=== PATIENT | male | born 1955 | race Caucasian/White ===

== ENCOUNTER 2017-03-06 19:26 | Observation (INO) | payer MEDICARE, OTHER ==
[2017-03-06 19:58] LABS: #Basophils 0.1 thou/uL (0.0-0.2); #Eosinphils 0.4 thou/uL (0.0-0.7); #Lymphocytes 2.3 thou/uL (1.20-3.40); #Monocytes 0.9 thou/uL (0.11-0.59); #Neutrophils 4.7 thou/uL (1.40-6.50); %Basophils 0.8 % (0.0-1.0); %Eosinophils 4.9 % (0.0-10.0); %Lymphocytes 27.2 % (21.0-51.0); %Monocytes 11.1 % (0.0-10.0); Mean Platelet Volume 7.6 fL (7.4-10.4); Red Blood Cell (RBC) Count 4.47 mill/uL (4.70-6.10); White Blood Cell (WBC) Count 8.3 thou/uL (4.8-10.8)
[2017-03-06 20:08] LABS: Anion Gap 16 mmol/L (10-20); BUN (Urea Nitrogen) 20 mg/dL (8.4-25.7); CK (CPK) 129 U/L (30-200); Calc. Creatinine Clearance 0 mL/min (70-130); Calcium 10.3 mg/dL (7.8-10.44); Carbon Dioxide 23 mmol/L (23-31); Chloride 98 mmol/L (98-107); Estimated GFR-MDRD 60
[2017-03-06 20:26] LABS: Digoxin 0.68 ng/mL (0.8-2.0)
--- NOTE | 2017-03-06 20:40 | RAD ---
PORTABLE CHEST ONE VIEW: 03/06/17 at 7:38 p.m. HISTORY: Dyspnea, chest pain. FINDINGS: Comparison is made with exam of 09/24/13. Left sided AICD is again seen. The heart size is normal. The aorta is tortuous. The lungs are expand ed without focal areas of consolidation, pneumothorax, or pleural effusions. IMPRESSION: No acute process. POS: [facility]
[2017-03-06] MEDS ORDERED: Ondansetron ODT 4 MG TAB PO PRN (23:05)
[2017-03-06] MEDS ORDERED: HumaLOG 300 UNITS/3 ML VIAL SC PRN ×2 (23:05)
[2017-03-06] MEDS ORDERED: Senokot 8.6 MG TAB PO PRN (23:05)
[2017-03-06] MEDS ORDERED: Ondansetron HCl/PF 4 MG/2 ML Vial IVP PRN (23:05)
[2017-03-06] MEDS ORDERED: Mag-Al 1200 mg/1200 mg/30 ML UDCUP PO PRN (23:05)
[2017-03-06] MEDS ORDERED: Milk Of Magnesia 30 ML UDCUP PO PRN (23:05)
[2017-03-06] MEDS ORDERED: Zolpidem Tartrate 5 MG TAB PO PRN (23:05)
[2017-03-06] MEDS ORDERED: Dextrose 50% Abboject 50 ML SYRINGE SLOW IVP PRN (23:05)
[2017-03-06] MEDS ORDERED: Acetaminophen 325 MG TAB PO PRN (23:05)
[2017-03-06] MEDS ORDERED: Dextrose 5% in Water 1,000 ML IV PRN (23:05)
[2017-03-06] MEDS ORDERED: Loperamide HCl 2 MG CAP PO PRN (23:05)
[2017-03-06] MEDS ORDERED: HYDROcodone/Acetaminophen 5/325 mg Tablet PO PRN (23:05)
[2017-03-06 23:15] LABS: Troponin I 0.071 ng/mL (< 0.028)
[2017-03-06] MEDS ORDERED: Potassium Chloride 20 MEQ TAB PO SCH (23:15)
[2017-03-06 23:37] VITALS: BMI 26.1
--- NOTE | 2017-03-06 23:52 | HP ---
PRIMARY CARE PHYSICIAN: In [place], [place], so this is a city call admission. PRIMARY COMMUNICATION ARTS LECTURER: Dr. Guerra. REASON FOR ADMISSION: Chest discomfort. HISTORY OF PRESENT ILLNESS: A 61-year-old male who has a history of hypertension, diabetes type 2, dyslipidemia, and ischemic cardiomyopathy, who presented to the emergency room for chest discomfort. Patient reports that he was fishing today and when he returned to home around 4:00 p.m. at home. He was feeling funny sensation in his chest as a fluttering sensation. Subsequently, he was also fe eling tingling, numbness sensation in his left arm and he started feeling funny in his jaw. He was not having any real chest pain, but he was feeling funny with a fluttering sensation in his chest an d he was concerned about and it was ongoing without any stop and that is why he decided to come to located within [facility] emergency room for evaluation. In the emergency room, he was hemodynamically stable. His routine blood tests showed hypokalemia, i ndeterminate troponin. Subsequently in the emergency room, AICD was interrogated, which was also ne gative for any arrhythmia. Patient was over concerned about his heart condition because he has a weak heart and that is why he decided to stay in the hospital for observation. Patient reports that last , he saw Dr. Guerra at that time echocardiography was done and Yasmine Guerra told him that his heart has not gotten worse or not improved. His EF remained 20% as pe r patient. This patient did not have any stress test in the recent past. He denies any exertion-related chest pain, palpitation, dizziness, syncope. He denies any orthopnea, PND, or leg swelling. He denies an y fever or chills. He denies any nausea, vomiting, diarrhea. He denies any associated diaphoresis. He denies any relation of discomfort in the chest with the food, respiration, or activity. He den ies any UTI symptoms. REVIEW OF SYSTEMS: The following complete review of systems was negative, unless otherwise mentione d in the HPI or below: Constitutional: Weight loss or gain, ability to conduct usual activities. Skin: Rash, itching. Eyes: Double vision, pain. ENT/Mouth: Nose bleeding, neck stiffness, pain, tenderness. Cardiovascular: Palpitations, dyspnea on exertion, orthopnea. Respiratory: Shortnes s of breath, wheezing, cough, hemoptysis, fever or night sweats. Gastrointestinal: Poor appetite, abdominal pain, heartburn, nausea, vomiting, constipation, or diarrhea. Genitourinary: Urgency, fr equency, dysuria, nocturia. Musculoskeletal: Pain, swelling. Neurologic/Psychiatric: Anxiety, de pression. Allergy/Immunologic: Skin rash, bleeding tendency. Please see my HPI for pertinent posi tives and negatives. All other review of systems were reviewed and negative except as mentioned in the HPI. PAST MEDICAL HISTORY: Ischemic cardiomyopathy, hypertension, dyslipidemia, diabetes type 2, chronic systolic heart failure with AICD, coronary artery disease with the history of [place] with the PCI, hist ory of MRSA infection, vitamin D deficiency. PAST SURGICAL HISTORY: Cardiac catheterization with the stent, history of herniated disk repair, de fibrillator placement, and cholecystectomy. PAST PSYCHIATRIC HISTORY: Reviewed and negative. CURRENT HOME MEDICATIONS: Lisinopril 2.5 mg p.o. daily, Coreg 6.25 mg twice daily, potassium chlori de 10 mEq p.o. 2 tablets twice daily, Jardiance 12.09/999 twice daily, metformin 1000 mg twice daily , Januvia 100 mg p.o. daily, digoxin 125 mcg p.o. daily, Nexium 40 mg p.o. daily, Zetia 10 mg p.o. d aily, Lasix 80 mg twice daily, fish oil 2 capsules twice daily, niacin 750 mg p.o. at bedtime, TriCo r 135 mg p.o. at bedtime, Livalo 2 mg p.o. at bedtime, Plavix 75 mg p.o. at bedtime, vitamin D3 2000 units p.o. at bedtime, iron 1 tablet p.o. daily, Coenzyme Q10 100 mg p.o. daily. SOCIAL HISTORY: Patient is a former smoker. He quit smoking a few years ago. He denies any alcoho l or other illicit drug abuse. He is , lives at home with his . He is retired from the . He smoked heavily for 35 years. ALLERGIES: PENICILLIN. FAMILY HISTORY: Patient's father had a myocardial infarction x2 in his 80s. Mother had a history o f diabetes and hypertension. EMERGENCY ROOM COURSE: Reviewed. PHYSICAL EXAMINATION: VITAL SIGNS: On arrival, blood pressure 152/87, pulse 82, respiratory rate 18, temperature 98.1, sa turation 96% on room air, weight 86.1 kilograms. GENERAL: Patient is currently alert, awake, no obvious acute distress. HEENT: Normocephalic, atraumatic. Eyes: Pupils round, reactive to light. Extraocular muscle inta ct. ENT: Oropharynx within normal limits. Moist mucous membranes. No oral lesions. No pharyngeal andrea thema, no exudate. NECK: Supple. Range of motion is normal. No meningeal signs of irritation. LUNGS: Clear to auscultation without any rhonchi or rales. CARDIAC: Pacemaker in left anterior chest. S1, S2 regular. No murmur, no gallop, no rub. ABDOMEN: Soft, bowel sounds present, nontender, nondistended. No organomegaly, no mass, no suprapu bic tenderness. BACK: Unremarkable, no CVA tenderness. EXTREMITIES: Upper extremity passive movement of all joints are normal. Lower extremities: No cedric ma. Good peripheral pulsation. SKIN: No skin rash. HEMATOLOGICAL SYSTEM: No lymphadenopathy. PSYCHIATRIC: Normal affect. NEUROLOGIC: Nonfocal examination. SIGNIFICANT LABS: EKG based on my review, normal sinus rhythm, nonspecific ST-T changes seen in ant erior leads. Chest x-ray based on my review, no acute cardiopulmonary process. CBC: WBC 8.3, hemo globin 13.7, platelets 310. BMP: Sodium 134, potassium 3.2, chloride 98, carbon dioxide 23, BUN 20 , creatinine 1.23, glucose 199, calcium 10.3, magnesium 2.2. CK 129, CK-MB 1.0, troponin 0.060. BN P 35.7, digoxin level was 0.68. ASSESSMENT AND PLAN: 1. Chest discomfort. This patient does not have any classic chest pain, but he is feeling funny in his chest. He describes it as a fluttering sensation, but surprisingly his AICD interrogation is n egative for any kind of arrhythmia. I am suspecting that patient has a low potassium and maybe meek use of PVCs, he maybe feeling fluttering sensation, but at the same time, patient also feels numb, p aresthesia-type of symptoms on the left upper extremity as well as in jaw, so this could be atypical symptoms of cardiac etiology and he has indeterminate troponin and nonspecific EKG changes. He has underlying cardiomyopathy and coronary artery disease and that is why we will keep this patient in the hospital for observation. We will do serial cardiac enzymes. If his troponins remain in the in determinate range or negative, then we will consider doing pharmacological stress test as this patie nt did not have any stress test in a long period of time. This patient already had echocardiography done at Dr. Guerra's office and this patient already has an appointment with Dr. Guerra on wednesday. Meanwhile, we will continue Plavix 75 mg p.o. at bedtime. The patient already took asp irin at home, nitroglycerin p.r.n. basis. We will also continue selected home medication while in [facility]. 2. Coronary artery disease with the history of stent. Patient is on Plavix, Coreg, lisinopril, Kira abigail, and Zetia, which we will continue while in hospital. 3. Hypokalemia. We will replace potassium chloride 40 mEq p.o. one time dose extra dose and magnes ium is normal and we will repeat BMP tomorrow. 4. Ischemic cardiomyopathy with chronic systolic heart failure. The patient is currently euvolemic . His BNP is normal. He does not have any edema. At this point, we will continue home medications with the Lasix 80 mg p.o. b.i.d. along with potassium chloride 20 mEq p.o. b.i.d. The patient will also continue his lisinopril 2.5 mg p.o. daily, and Coreg 6.25 mg twice daily. 5. Dyslipidemia. We will check lipid profile tomorrow and continue Livalo 2 mg p.o. at bedtime, Tr iCor 135 mg p.o. at bedtime, niacin extended-release 750 mg at bedtime, and Zetia 10 mg p.o. daily. 6. Diabetes type 2. We will continue insulin as per sliding scale per protocol. Diabetic diet luis l be given. We will continue metformin 1000 mg twice daily, Januvia 100 mg p.o. daily. 7. Chronic kidney disease stage 3. We will monitor renal function. We will repeat BMP tomorrow. 8. Deep venous thrombosis prophylaxis not needed because we are expecting discharge in 24 hours. 9. Gastrointestinal prophylaxis, Pepcid 20 mg p.o. b.i.d. 10. Code status: The patient is FULL CODE. The patient's is surrogate decision maker. Disposition plan based on the clinical course. We are expecting patient's stay in hospital 24 hours .
[2017-03-07 01:59] LABS: #Basophils 0.1 thou/uL (0.0-0.2); #Eosinphils 0.5 thou/uL (0.0-0.7); #Lymphocytes 2.4 thou/uL (1.20-3.40); %Eosinophils 6.7 % (0.0-10.0); %Lymphocytes 29.5 % (21.0-51.0); %Monocytes 12.2 % (0.0-10.0); Mean Platelet Volume 7.3 fL (7.4-10.4); Red Blood Cell (RBC) Count 4.68 mill/uL (4.70-6.10)
[2017-03-07 02:22] LABS: Troponin I 0.079 ng/mL (< 0.028)
[2017-03-07 02:28] LABS: Chloride 99 mmol/L (98-107)
[2017-03-07 02:29] LABS: Calcium 10.2 mg/dL (7.8-10.44)
[2017-03-07 02:31] LABS: Anion Gap 15 mmol/L (10-20); Carbon Dioxide 26 mmol/L (23-31)
[2017-03-07 02:32] LABS: Calc. Creatinine Clearance 76 mL/min (70-130); Estimated GFR-MDRD 58
[2017-03-07 02:33] LABS: BUN (Urea Nitrogen) 17 mg/dL (8.4-25.7)
[2017-03-07 02:34] LABS: Cholesterol 178 mg/dl (< 200 Desired)
[2017-03-07 02:35] LABS: LDL Cholesterol, Calculated 1 mg/dL
[2017-03-07] MEDS ORDERED: ADENOSINE 60 MG/20 ML VIAL ONE ×2 (03:51→11:39)
[2017-03-07] MEDS: Nitroglycerin 2% Ointment 1 INCH/1 GM Packet TOP SCH ×2 (05:34→12:58)
[2017-03-07] MEDS ORDERED: Ferrous Sulfate 325 MG TAB PO SCH (08:00)
[2017-03-07] MEDS ORDERED: Lisinopril 2.5 MG TAB PO SCH (09:00)
[2017-03-07] MEDS ORDERED: Fish Oil 1,000 MG CAP PO SCH (09:00)
[2017-03-07] MEDS ORDERED: Digoxin 0.125 MG TAB PO SCH (09:00)
[2017-03-07] MEDS ORDERED: Ubidecarenone 50 MG CAP PO SCH ×2 (09:00→21:00)
[2017-03-07] MEDS ORDERED: Fenofibrate Nanocrystallized 145 MG TAB PO SCH ×2 (09:00→21:00)
[2017-03-07] MEDS ORDERED: Ezetimibe 10 MG TAB PO SCH (09:00)
[2017-03-07] MEDS ORDERED: Famotidine 20 MG TAB PO SCH (09:00)
[2017-03-07] MEDS ORDERED: Alogliptin Benzoate 25 MG TABLET PO SCH (09:00)
--- NOTE | 2017-03-07 09:59 | PDOC.PN ---
- Subjective Encounter Start Date: 03/07/17 Encounter Start Time: 09:57 Subjective: feelsw at baseline. no more chest discomfort.no SOB/PRICE/Orthopnea - Objective Resuscitation Status: Resuscitation Status FULL:Full Resuscitation MAR Reviewed: Yes Vital Signs & Weight: Vital Signs (12 hours) Temp Pulse Resp BP BP Pulse Ox 03/07/17 08:53 85 139/74 03/07/17 07:30 97.8 F 80 18 03/07/17 07:28 98.4 F 85 16 139/74 92 L 03/07/17 04:14 97.8 F 80 18 121/71 95 03/06/17 22:59 98.0 F 77 18 148/70 H 95 Weight Admit Weight 192 lb 6.4 oz Weight 192 lb 6.4 oz I&O: 03/06/17 03/07/17 03/08/17 06:59 06:59 06:59 Intake Total 480 Balance 480 Result Diagrams: 03/07/17 01:51 03/07/17 01:51 Additional Labs: Accuchecks 03/07/17 05:54 POC Glucose 138 H Laboratory Tests 03/06/17 03/06/17 03/06/17 19:40 19:40 22:37 Troponin I 0.060 H 0.071 H Triglycerides Cholesterol LDL Cholesterol, Calc HDL Cholesterol Digoxin 0.68 L 03/07/17 03/07/17 01:51 01:51 Troponin I 0.079 H Triglycerides 764 H Cholesterol 178 LDL Cholesterol, Calc 1 HDL Cholesterol 24 Digoxin Radiology Reviewed by me: Yes Phys Exam - Physical Examination Constitutional: NAD HEENT: PERRLA, moist MMs, sclera anicteric, oral pharynx no lesions Neck: no nodes, no JVD, supple, full ROM Respiratory: no wheezing, no rales, no rhonchi, clear to auscultation bilateral Cardiovascular: RRR, no significant murmur, no rub, gallop Gastrointestinal: soft, non-tender, no distention, positive bowel sounds Musculoskeletal: no edema, pulses present Neurological: non-focal, normal sensation, moves all 4 limbs Psychiatric: normal affect, A&O x 3 Skin: no rash Dx/Plan (1) Chest pain Code(s): R07.9 - CHEST PAIN, UNSPECIFIED Status: Acute (2) Troponin level elevated Code(s): R74.8 - ABNORMAL LEVELS OF OTHER SERUM ENZYMES Status: Acute (3) Chronic systolic CHF (congestive heart failure) Code(s): I50.22 - CHRONIC SYSTOLIC (CONGESTIVE) HEART FAILURE Status: Chronic Comment: EF 25%.AICD in place (4) DM2 (diabetes mellitus, type 2) Status: Chronic Qualifiers: Diabetes mellitus complication status: with hyperglycemia (5) Hypertriglyceridemia Code(s): E78.1 - PURE HYPERGLYCERIDEMIA Status: Chronic Comment: On multiple medications and TG levels higher than before (6) HLD (hyperlipidemia) Code(s): E78.5 - HYPERLIPIDEMIA, UNSPECIFIED Status: Chronic Qualifiers: Hyperlipidemia type: mixed hyperlipidemia Qualified Code(s): E78.2 - Mixed hyperlipidemia (7) HTN (hypertension) Code(s): I10 - ESSENTIAL (PRIMARY) HYPERTENSION Status: Chronic Qualifiers: Hypertension type: essential hypertension Qualified Code(s): I10 - Essential (primary) hypertension (8) CAD (coronary artery disease) Code(s): I25.10 - ATHSCL HEART DISEASE OF [place] CORONARY ARTERY W/O ANG PCTRS Status: Chronic (9) Ischemic cardiomyopathy Code(s): I25.5 - ISCHEMIC CARDIOMYOPATHY Status: Chronic (10) AICD (automatic cardioverter/defibrillator) present Code(s): Z95.810 - PRESENCE OF AUTOMATIC (IMPLANTABLE) CARDIAC DEFIBRILLATOR Status: Chronic - Plan plan discussed w/ family, out of bed/ambulate, DVT proph w/lovenox NM stress test today. cardiac enzymes inderminate range.cont plavix. -: Pt reports that ASA gives him nose bleeds. -: discussed high TG w family. will talk to Dr. Guerra. -: If Stress test nagtive,luis MD home,. -: F/U appointment w cardiology is in two days. * .hemodynamically stable and asymptomatic. Review of Systems - Review of Systems Constitutional: negative: Fever, Chills, Sweats, Weakness, Malaise, Other Respiratory: negative: Cough, Dry, Shortness of Breath, Hemoptysis, SOB with Excertion, Pleuritic Pain, Sputum, Wheezing Cardiovascular: negative: Chest Pain, Palpitations, Orthopnea, Paroxysmal Noc. Dyspnea, Edema, Light Headedness, Other Gastrointestinal: negative: Nausea, Vomiting, Abdominal Pain, Diarrhea, Constipation, Melena, Hematochezia, Other Genitourinary: negative: Dysuria, Frequency, Incontinence, Hematuria, Retention , Other Musculoskeletal: negative: Neck Pain, Shoulder Pain, Arm Pain, Back Pain, Hand Pain, Leg Pain, Foot Pain, Other Neurological: negative: Weakness, Numbness, Incoordination, Change in Speech, Confusion, Seizures, Other - Medications/Allergies Allergies/Adverse Reactions: Allergies Allergy/AdvReac Type Severity Reaction Status Date / Time Penicillins Allergy Intermediate Rash Verified 11/14/15 12:44 Medications: Current Medications Acetaminophen (Tylenol) 650 mg PO Q4H PRN PRN Reason: Headache/Fever or Pain Hydrocodone Bitart/Acetaminophen ([place] 5/325) 1 tab PO Q4H PRN PRN Reason: Moderate Pain (4-6) Al Hydroxide/Mg Hydroxide (Maalox) 30 ml PO Q6H PRN PRN Reason: Heartburn or Indigestion Alogliptin Benzoate (Alogliptin) 25 mg PO DAILY [facility] Last Admin: 03/07/17 08:52 Dose: 25 mg Atorvastatin Calcium (Lipitor) 10 mg PO HS [facility] Cholecalciferol (Vitamin D3) 1,000 units PO QPM [facility] Clopidogrel Bisulfate (Plavix) 75 mg PO HS [facility] Coenzyme Q10 (Coenzyme Q10) 100 mg PO QPM [facility] Dextrose/Water (Dextrose 50%) 25 gm SLOW IVP PRN PRN PRN Reason: Hypoglycemia Digoxin (Lanoxin) 0.125 mg PO DAILY [facility] Ezetimibe (Zetia) 10 mg PO DAILY [facility] Last Admin: 03/07/17 08:52 Dose: 10 mg Famotidine (Pepcid) 20 mg PO BID [facility] Last Admin: 03/07/17 08:52 Dose: 20 mg Fenofibrate (Tricor) 145 mg PO QPM [facility] Ferrous Sulfate (Feosol) 325 mg PO QAM-WM [facility] Last Admin: 03/07/17 08:33 Dose: Not Given Fish Oil (Fish Oil) 1,000 mg PO DAILY [facility] Last Admin: 03/07/17 08:53 Dose: 1,000 mg Furosemide (Lasix) 80 mg PO 0900,1400 [facility] Glucagon (Glucagon) 1 mg IM PRN PRN PRN Reason: Hypoglycemia Dextrose/Water (D5w) 1,000 mls @ 0 mls/hr IV .Q0M PRN; As Directed PRN Reason: Hypoglycemia Insulin Human Lispro (Humalog) 0 units SC .MODERATE SLIDING SC PRN PRN Reason: Moderate Correctional Scale Insulin Human Lispro (Humalog) 0 units SC .BEDTIME SLIDING SC PRN PRN Reason: Bedtime Correctional Scale Lisinopril (Zestril) 2.5 mg PO DAILY [facility] Last Admin: 03/07/17 08:53 Dose: 2.5 mg Loperamide HCl (Imodium) 2 mg PO PRN PRN PRN Reason: Diarrhea/Loose Stools Magnesium Hydroxide (Milk Of Magnesium) 30 ml PO DAILYPRN PRN PRN Reason: Constipation Metformin HCl (Glucophage) 1,000 mg PO BID-[facility] Last Admin: 03/07/17 08:52 Dose: 1,000 mg Niacin (Niaspan Er) 500 mg PO [facility] Nitroglycerin (Nitro-Bid 2% Ointment) 0.5 inch TOP Q8HR [facility] Last Admin: 03/07/17 05:34 Dose: Not Given Ondansetron HCl (Zofran Odt) 4 mg PO Q6H PRN PRN Reason: Nausea/Vomiting Ondansetron HCl (Zofran) 4 mg IVP Q6H PRN PRN Reason: Nausea/Vomiting Senna (Senokot) 2 tab PO HSPRN PRN PRN Reason: Constipation Zolpidem Tartrate (Ambien) 5 mg PO HSPRN PRN PRN Reason: Insomnia
[2017-03-07] MEDS: Furosemide 80 MG TAB PO SCH ×2 (12:57→12:58)
[2017-03-07 13:23] VITALS: BP 150/69; TEMP 98.1
--- NOTE | 2017-03-07 13:43 | NM ---
RADIONUCLIDE STRESS REST MYOCARDIAL PERFUSION SCAN WITH CT ATTENUATION CORRECTION AND SPECT IMAGING LEFT VENTRICULAR WALL MOTION AND EJECTION FRACTION: HISTORY: Chest pain. Prior infarct. FINDINGS: Single-day adenosine protocol was used. There is very heterogeneous uptake of radiotracer throughou t the left ventricular myocardium with a large area of markedly diminished radiotracer uptake involv ing the anterior wall and septum. No significant reversibility is visible. QGS analysis of gated SPECT images shows markedly diminished motion of the septum. Left ventricular ejection fraction is calculated at 33%. IMPRESSION: 1. Large area of scar involving the anterior wall, septum, and apex. No evidence of ischemia. 2. Depressed ejection fraction of 33%. POS: [facility]
--- NOTE | 2017-03-07 17:43 | DIS ---
DATE OF ADMISSION: 03/06/2017 DATE OF DISCHARGE: 03/07/2017 PRIMARY CARE PHYSICIAN: Out of town. PRIMARY LENS MOLD SETTER: Dr. Rakesh Guerra. DISCHARGE DIAGNOSES: 1. Chest discomfort, acute coronary syndrome ruled out. 2. History of ischemic cardiomyopathy with automatic implantable cardioverter defibrillator in plac e. 3. Hypertension. 4. Dyslipidemia. 5. Diabetes mellitus, type 2. 6. Chronic systolic congestive heart failure. 7. Coronary artery disease with history of myocardial infarction with the [employer]. 8. History of methicillin-resistant Staphylococcus aureus infection. 9. Vitamin D deficiency. DISCHARGE MEDICATIONS: Remain the same as admission medications. He will resume. They have been re viewed by myself as follows; Januvia 100 mg daily, metformin 1000 mg p.o. b.i.d., lisinopril 2.5 mg daily, vitamin D3 2000 units daily, Jardiance 12.5 mg p.o. b.i.d., tramadol as needed, Coreg 6.25 mg p.o. b.i.d., Zetia 10 mg daily, Nexium 40 mg daily, digoxin 0.125 mg daily, Plavix 75 mg daily, angelica pedro sulfate 45 mg daily, fenofibric acid 135 mg daily, fish oil 1 capsule daily, Niaspan 750 mg roddy ly, Lasix 80 mg twice a day, potassium chloride 20 mEq p.o. b.i.d., and Livalo 2 mg daily. CONSULTATIONS: None. PROCEDURES DONE IN THE HOSPITAL: Include nuclear medicine stress test. It is negative for any reve rsibility or ischemia. It does show evidence of old infarction with large area of scar in the anter ior wall septum and apex. Estimated EF is 33%. ADMISSION HISTORY: Mr. Rawls is a pleasant 61-year-old male with past medical history of significant ischemic cardiomyopathy, status post AICD placement, and coronary artery disease among others, who presented to the emergency room with vague complaints of chest discomfort. He described his symptoms of \\\\"feeling funny in the chest\\\\" with a fluttering sensation. He was hemodynamical ly stable upon presentation and his symptoms have resolved. Given his extensive cardiac history, he was admitted overnight under observation for evaluation and ACS workup. He underwent nuclear medicine stress test, which was negative for any ischemia or reversibility. HOSPITAL COURSE: Cardiac enzymes were trended; initially he had troponin of 0.060, which went up to 0.079. The patient's symptoms have not reoccurred as nuclear medicine stress test is normal. He i s hemodynamically stable and symptom free. He has an upcoming appointment with his own technical support representative day after tomorrow. He can be safely discharged home and he is eager to go home. I have discussed the discharge plan with the patient and his , who verbalized understanding. He was found to have severely elevated levels of triglyceride of 764 despite maximum therapy. I hav e encouraged them to discuss this with their technical support representative for some normal hypertriglyceride medicati ons. This seems to have consistently worsened over the course of last 5 years. Other than that, at this time, the patient is stable and given his presentation and his workup, ACS has been ruled out to the best of our knowledge. The patient was seen and examined prior to discharge. Please see hospitalist progress note from georgi peck's date for further details and [id number] interaction.
[2017-03-07] MEDS ORDERED: Clopidogrel Bisulfate 75 MG TAB PO SCH (21:00)
[2017-03-07] MEDS ORDERED: Atorvastatin Calcium 10 MG TAB PO SCH (21:00)
== END 2017-03-07 14:43 | disposition home or self-care (01) ==
LOC: ERS 19:26 → 2SW 22:00
PROVIDERS: ADMIT Internal Medicine; ATTEND Internal Medicine
DX: R07.89 Other chest pain (principal); I25.5 Ischemic cardiomyopathy; I11.0 Hypertensive heart disease with heart failure; I50.22 Chronic systolic (congestive) heart failure; E78.5 Hyperlipidemia, unspecified; E11.9 Type 2 diabetes mellitus without complications; E55.9 Vitamin D deficiency, unspecified; I25.10 Atherosclerotic heart disease of native coronary artery without angina pectoris; I25.2 Old myocardial infarction; Z88.0 Allergy status to penicillin; Z79.84 Long term (current) use of oral hypoglycemic drugs; Z79.899 Other long term (current) drug therapy; Z90.49 Acquired absence of other specified parts of digestive tract; Z95.810 Presence of automatic (implantable) cardiac defibrillator; Z86.14 Personal history of Methicillin resistant Staphylococcus aureus infection; Z87.891 Personal history of nicotine dependence; Z82.49 Family history of ischemic heart disease and other diseases of the circulatory system; Z83.3 Family history of diabetes mellitus
CPT/HCPCS: 71010; 78452; 80048 ×2; 80061; 80162; 82550; 82553; 82962 ×2; 83735; 83880; 84484 ×3; 85025 ×2; 93005; 93017; 99285; A9500; G0378; 36415; 36416; 93010; J0153

== ENCOUNTER 2017-09-17 15:22 | Inpatient (IN) | payer MEDICARE, OTHER ==
[2017-09-17 16:15] LABS: Troponin I 0.599 ng/mL (< 0.028)
[2017-09-17] MEDS ORDERED: Dextrose 5% in Water 1,000 ML IV PRN (16:41)
[2017-09-17] MEDS ORDERED: Dextrose 50% Abboject 50 ML SYRINGE SLOW IVP PRN (16:41)
[2017-09-17] MEDS ORDERED: Zolpidem Tartrate 5 MG TAB PO PRN (16:41)
[2017-09-17] MEDS ORDERED: Acetaminophen 325 MG TAB PO PRN (16:41)
[2017-09-17] MEDS ORDERED: Ondansetron ODT 4 MG TAB PO PRN (16:41)
[2017-09-17] MEDS ORDERED: Insulin Regular 300 UNITS/3 ML VIAL SC PRN (16:41)
--- NOTE | 2017-09-17 17:23 | HP ---
PRIMARY CARE PROVIDER: Linda Christine M.D. ADJUNCT TRAINER: Dr. Rakesh Guerra. The patient referred to [facility] by [facility] after transfer f [facility] in [place]. HISTORY OF PRESENT ILLNESS: The patient developed a burning in his chest with exertion past several days, goes away with sitting 5-10 minutes, it was worse today, started this morning, associated with tingling in left side of his face, into his left arm, lasted about 30 minutes, went away with rest. He had minimal shortness of breath. No sweats. PAST MEDICAL HISTORY: Pertinent for coronary artery disease post anterior myocardial infarction, isc hemic cardiomyopathy, hypertension, diabetes mellitus type 2, dyslipidemia. He has an AICD. He had a PCI in the past. PAST SURGICAL HISTORY: Cardiac catheterization with PCI, herniated disk repair in his back, cholecys tectomy. CURRENT MEDICATIONS: Coreg 6.25 mg twice a day, Klor-Con 20 mEq daily, Synjardy 12.09/999 twice a da y, digoxin 0.125 mg a day, Januvia 100 mg a day, Nexium 40 mg a day, Zetia 10 mg a day, Lasix 80 mg t wice a day, Entresto 24/ twice a day, Bydureon BCise 2 mg subcu once a week, Tylenol #3 one every 4 hours as needed for pain, niacin 750 mg a day, fenofibrate 135 mg a day, Livalo 2 mg a day, Plavix 7 5 mg a day, Coenzyme Q10 100 mg a day, fish oil twice a day. ALLERGIES: PENICILLIN. FAMILY HISTORY: Father had a myocardial infarction x2 in his 80s. Mother had diabetes and hypertens ion. SOCIAL HISTORY: Former smoker, quit several years ago. No alcohol or illicit drugs. Lives at home with his . Smoked heavily for 35 years. Retired . CODE STATUS: FULL CODE status. is surrogate decision maker. REVIEW OF SYSTEMS: GENERAL: A little dizziness with this chest pain, no fainting, no headaches. EYES: No double vision, blurred vision, or flashing lights. ENT: No ear pain or drainage. Occasional nasal bleeding which he relates to aspirin and Plavix. No trouble swallowing. CARDIAC: See present illness. No orthopnea or paroxysmal nocturnal dyspnea. RESPIRATORY: No cough, wheezing or asthma. GASTROINTESTINAL: He has diarrhea related to his cholecystectomy. No nausea, vomiting or abdominal pain. GENITOURINARY: No hematuria, dysuria or nocturia. MUSCULOSKELETAL: No pain or swelling in his arms and legs. NEUROLOGIC: He had a TIA 5 years ago with numbness in his left hand and left face, resolved. PSYCHIATRIC: No anxiety or depression. SKIN: Easy bruising. No rash. HEME/LYMPH: No tender or swollen lymph nodes in axilla, inguinal or cervical area. PHYSICAL EXAMINATION: NEUROLOGICAL: He is an alert, pleasant, cooperative gentleman, in no distress at the current time. VITAL SIGNS: Blood pressure 122/67, pulse 82, respirations 15, O2 sat 96 on room air. HEENT: Pupils equal, round, and reactive to light. Extraocular movements are intact. Sclerae white . Tympanic membranes clear. Nose clear. Oral mucous membranes are wet. He has only six or eight t eeth, none on the upper. No molars. No dentures. NECK: No jugular venous distention, adenopathy. CHEST: Clear to auscultation and percussion. HEART: Regular rate and rhythm. First and second heart sounds are clear. There are no appreciated murmurs or gallops. ABDOMEN: Soft, bowel sounds are normal. There is no hepatosplenomegaly, no mass, no rebound, no bru its. EXTREMITIES: Reveal no cyanosis, clubbing or edema. PULSES: Carotid, radial, and femoral pulses intact, symmetric. Pedal pulses diminished. SKIN: Warm and dry without any significant bruising or rash. HEME/LYMPH: No tender or swollen lymph nodes in axilla, inguinal or cervical area. NEUROLOGICAL: Cranial nerves II-XII are intact. Deep tendon reflexes diminished. Moves all extremi ties. LABORATORY AND X-RAY FINDINGS: EKG: Regular sinus rhythm, Q-waves in V2, V3 and V4 consistent with old anterior myocardial infarction. ST depression in the inferior and lateral limb leads. Inferior and lateral precordial leads consistent with ischemia reviewed by me. There is no chest x-ray for in spection. Laboratory done in [place], BUN 17, creatinine 1.3, sodium 138, potassium 3.7, chloride 10 3, CO2 23, calcium 10.1. Liver function test within normal limits. White cell count 8.1, hemoglobin 14.1, platelet count 329,000. His D-dimer was elevated at 0.058. ADMITTING DIAGNOSES: 1. Chest pain. 2. Coronary artery disease. 3. Ischemic cardiomyopathy. 4. Diabetes mellitus type 2, on multiple medications. 5. Hypertension. 6. Dyslipidemia. 7. Chronic kidney disease stage 3. PLAN: 1. Admit. 2. Serial enzymes. 3. The patient has been given one dose of Lovenox therapeutic. 4. Continue home medicines. 5. Cardiology consult. The patient had no reversible perfusion stress test in February, will not ord er one at this time, but discussed with Cardiology.
[2017-09-17] MEDS: Nitroglycerin 0.4 MG TAB (25 Tab Bottle) PO PRN ×2 (18:59→20:22)
[2017-09-17 19:04] LABS: Critical Call Chem Troponin I RESULT DECREASING; Troponin I 0.538 ng/mL (< 0.028)
[2017-09-17] MEDS ORDERED: Morphine 4 MG/ML VIAL SLOW IVP PRN (19:26)
[2017-09-17 21:32] LABS: Critical Call Chem Troponin I RESULT DECREASING; Troponin I 0.529 ng/mL (< 0.028)
[2017-09-17] MEDS ORDERED: Ferrous Sulfate 325 MG TAB PO SCH (22:15)
[2017-09-17] MEDS ORDERED: Clopidogrel Bisulfate 75 MG TAB PO SCH (22:15)
[2017-09-17] MEDS ORDERED: Carvedilol 6.25 MG TAB PO SCH (22:15)
[2017-09-17] MEDS ORDERED: Potassium Chloride 20 MEQ TAB PO SCH (22:15)
[2017-09-17] MEDS ORDERED: Ubidecarenone 50 MG CAP PO SCH (22:30)
[2017-09-17] MEDS ORDERED: Sacubitril 49 MG/Valsartan 51 MG TABLET PO SCH (22:30)
[2017-09-18 05:06] LABS: #Eosinphils 0.5 thou/uL (0.0-0.7); #Lymphocytes 1.7 thou/uL (1.20-3.40); #Monocytes 0.8 thou/uL (0.11-0.59); #Neutrophils 3.8 thou/uL (1.40-6.50); %Basophils 0.6 % (0.0-1.0); %Eosinophils 7.1 % (0.0-10.0); %Lymphocytes 24.6 % (21.0-51.0); %Monocytes 11.9 % (0.0-10.0); %Neutrophils 55.9 % (42.0-75.0); Hemoglobin 13.4 g/dL (14.0-18.0); Mean Corpuscular HGB CONC 35.3 g/dL (32.0-36.0); Mean Corpuscular Hemoglobin 30.4 pg (27.0-31.0); Mean Corpuscular Volume 86.1 fl (80.0-94.0); Mean Platelet Volume 7.9 fL (7.4-10.4); Platelet Count 254 thou/uL (130-400); RBC Distribution Width 11.9 % (11.5-14.5); Red Blood Cell (RBC) Count 4.41 mill/uL (4.70-6.10); White Blood Cell (WBC) Count 6.8 thou/uL (4.8-10.8)
[2017-09-18 05:12] LABS: Anion Gap 15 mmol/L (10-20); BUN (Urea Nitrogen) 19 mg/dL (8.4-25.7); Calc. Creatinine Clearance 76 mL/min (70-130); Calcium 9.8 mg/dL (7.8-10.44); Carbon Dioxide 24 mmol/L (23-31); Chloride 101 mmol/L (98-107); Estimated GFR-MDRD 60; Glucose 132 mg/dL (80-115); Potassium 3.2 mmol/L (3.5-5.1); Sodium 137 mmol/L (136-145)
[2017-09-18] MEDS ORDERED: Communication Order-Pharmacy FS SCH ×2 (08:45→12:33)
[2017-09-18] MEDS ORDERED: Diazepam 5 MG TAB PO SCH (08:45)
[2017-09-18] MEDS: Carvedilol 6.25 MG TAB PO SCH ×2 (08:53→22:31)
[2017-09-18] MEDS ORDERED: Aspirin 325 MG TAB PO SCH (09:00)
--- NOTE | 2017-09-18 09:18 | PDOC.PN ---
- Subjective Encounter Start Date: 09/18/17 Encounter Start Time: 09:16 Subjective: still has pain, relieved with NTG - Objective MAR Reviewed: Yes Vital Signs & Weight: Vital Signs (12 hours) Temp Pulse Resp BP Pulse Ox 09/18/17 07:55 98.0 F 72 18 112/60 96 09/18/17 07:49 98.0 F 84 14 09/18/17 03:50 98.0 F 84 14 107/55 L 93 L 09/17/17 22:50 73 16 106/56 L 95 Weight Weight 190 lb 8 oz I&O: 09/17/17 09/18/17 09/19/17 06:59 06:59 06:59 Intake Total 480 Balance 480 Result Diagrams: 09/18/17 04:17 09/18/17 04:17 Additional Labs: Accuchecks 09/17/17 19:00 POC Glucose 108 Phys Exam - Physical Examination Neck: no JVD Respiratory: clear to auscultation bilateral Cardiovascular: RRR, no significant murmur Gastrointestinal: soft, non-tender, positive bowel sounds Musculoskeletal: no edema Dx/Plan (1) Chest pain Code(s): R07.9 - CHEST PAIN, UNSPECIFIED Status: Acute Qualifiers: Ischemic chest pain type: unstable angina pectoris (2) CAD (coronary artery disease) Code(s): I25.10 - ATHSCL HEART DISEASE OF [place] CORONARY ARTERY W/O ANG PCTRS Status: Chronic Qualifiers: Coronary Disease-Associated Artery/Lesion type: [place] artery [place] vs. transplanted heart: [place] heart Associated angina: with unstable angina Qualified Code(s): I25.110 - Atherosclerotic heart disease of [place] coronary artery with unstable angina pectoris (3) Chronic systolic CHF (congestive heart failure) Code(s): I50.22 - CHRONIC SYSTOLIC (CONGESTIVE) HEART FAILURE Status: Chronic Comment: EF 25%.AICD in place (4) DM2 (diabetes mellitus, type 2) Status: Chronic Qualifiers: Diabetes mellitus senior living insulin use: with senior living use Diabetes mellitus complication status: without complication Qualified Code(s): E11.9 - Type 2 diabetes mellitus without complications; Z79.4 - care home (current) use of insulin; Z79.4 - care home (current) use of insulin; Z79.4 - care home ( current) use of insulin; Z79.4 - intermediate school teacher (current) use of insulin (5) HLD (hyperlipidemia) Code(s): E78.5 - HYPERLIPIDEMIA, UNSPECIFIED Status: Chronic Qualifiers: (6) HTN (hypertension) Code(s): I10 - ESSENTIAL (PRIMARY) HYPERTENSION Status: Chronic Qualifiers: Hypertension type: essential hypertension (7) Hypertriglyceridemia Code(s): E78.1 - PURE HYPERGLYCERIDEMIA Status: Chronic Comment: On multiple medications and TG levels higher than before (8) Ischemic cardiomyopathy Code(s): I25.5 - ISCHEMIC CARDIOMYOPATHY Status: Chronic - Plan cath today, FU * .
[2017-09-18] MEDS ORDERED: Lidocaine 1% (PF) 30 ML VIAL ONE (09:25)
[2017-09-18] MEDS ORDERED: Iopamidol 370 76% 100 ML VIAL ONE (09:54)
[2017-09-18] MEDS ORDERED: Fentanyl 100 MCG/2 ML VIAL ONE (09:55)
[2017-09-18] MEDS ORDERED: Midazolam HCl 2 mg/2 ml Vial ONE ×2 (09:56→13:25)
[2017-09-18] MEDS: Potassium Chloride 20 MEQ TAB PO SCH ×2 (10:02→22:32)
[2017-09-18] MEDS: Sacubitril 49 MG/Valsartan 51 MG TABLET PO SCH ×2 (10:03→22:32)
[2017-09-18] MEDS ORDERED: Heparin 10,000 UNITS/1 ML VIAL ONE (10:34)
[2017-09-18] MEDS ORDERED: Nitroglycerin 50 MG/250 ML BOT 250 ML ONE (11:09)
[2017-09-18] MEDS ORDERED: Morphine 4 MG/ML VIAL ONE (11:10)
[2017-09-18] MEDS ORDERED: Nitroglycerin 0.4 MG TAB (25 Tab Bottle) ONE (11:10)
[2017-09-18] MEDS ORDERED: Nitroglycerin 0.4 MG TAB (25 Tab Bottle) SL PRN ×2 (11:15→11:30)
[2017-09-18] MEDS ORDERED: Sodium Chloride 0.9% 200 ML IV SCH (11:15)
[2017-09-18] MEDS ORDERED: traMADol HCl 50 MG TAB PO PRN (11:15)
[2017-09-18] MEDS ORDERED: Acetaminophen/Codeine 30-300mg Tablet PO PRN ×4 (11:15→11:30)
[2017-09-18] MEDS ORDERED: Aminocaproic Acid 5 GM/20 ML VIAL ONE (11:20)
[2017-09-18] MEDS ORDERED: Sodium Bicarb 50 MEQ/50 ML VIAL ONE (11:20)
[2017-09-18] MEDS ORDERED: Lidocaine 1% PF 5 ML VIAL ONE (11:20)
[2017-09-18] MEDS ORDERED: PROPOFOL 200 MG/20 ML VIAL ONE (11:20)
[2017-09-18] MEDS ORDERED: Protamine Sulfate 250 MG/25 ML VIAL ONE (11:20)
[2017-09-18] MEDS ORDERED: Vecuronium Bromide 20 MG VIAL ONE (11:20)
[2017-09-18] MEDS ORDERED: Heparin 30,000 units/30 ml VIAL ONE (11:20)
[2017-09-18] MEDS ORDERED: Heparin 5,000 UNITS/ML VIAL ONE (11:20)
[2017-09-18] MEDS ORDERED: Potassium Chloride 60 MEQ/30 ML VIAL ONE (11:20)
[2017-09-18] MEDS ORDERED: Calcium Chloride 1 GM/10 ML Abboject SYRINGE ONE (11:20)
[2017-09-18] MEDS ORDERED: Magnesium 5 GM/10 ML VIAL ONE (11:20)
[2017-09-18] MEDS ORDERED: Lidocaine 2% PF 100 mg/5 ml Syringe ONE (11:20)
[2017-09-18] MEDS ORDERED: Papaverine 60 MG/2 ML VIAL ONE (11:20)
[2017-09-18] MEDS ORDERED: Sodium Chloride 0.9% 200 ML IV PRN (11:30)
[2017-09-18 13:07] LABS: INR-International Normal Ratio 1.1; PTT 31.7 SEC (22.9-36.1); Prothrombin Time 14.3 SEC (12.0-14.7)
[2017-09-18 13:08] LABS: Hemoglobin A1c 7.1 % (4.0-6.0)
--- NOTE | 2017-09-18 13:22 | RAD ---
PORTABLE SUPINE FRONTAL CHEST RADIOGRAPH: Date: 09/18/17 COMPARISON: 03/06/17. HISTORY: Evaluate chest prior to open heart surgery. FINDINGS: Supine imaging limits assessment for pneumothorax and pleural fluid. There is a stable dual lead left -sided AICD. Atherosclerotic calcification in aortic arch noted. No focal consolidation or alveolar e sumanth. IMPRESSION: No acute findings. POS: [facility]
[2017-09-18] MEDS ORDERED: Vecuronium 10 MG VIAL ONE (13:25)
[2017-09-18] MEDS ORDERED: Phenylephrine HCL 10 MG/ML VIAL ONE (13:25)
[2017-09-18] MEDS ORDERED: Norepinephrine 8 MG/0.9% NS 250 ML ONE (13:25)
[2017-09-18] MEDS ORDERED: Fentanyl 250 MCG/5 ML VIAL ONE (13:25)
[2017-09-18] MEDS ORDERED: Midazolam HCl 5 mg/5 ml Vial ONE (13:25)
--- NOTE | 2017-09-18 14:10 | PDOC.EVN ---
Event Note - Event Note Event Note: NSTEMI, cath poitive for critical stenosis. going for CABG
--- NOTE | 2017-09-18 14:22 | CON ---
DATE OF CONSULTATION: 09/18/2017 REASON FOR CONSULTATION: Non-ST elevation myocardial infarction with ongoing chest pain. HISTORY OF PRESENT ILLNESS: Mr. Rawls is a 62-year-old patient of Dr. Rakesh Guerra. The patient has a long history of congestive heart failure and also coronary artery disease, but predominantly t he heart failure has been his main symptom. He said for about 2 weeks he has had exertional burning in his chest, sometimes at rest. The family had a severe episode yesterday, he went to the hospital in [place]. Troponin levels are elevated given Lovenox, but the patient continued to have chest burn ing at rest intermittently since he has been here. This morning when I walked into the room, he said he is continuing to have burning in his chest even presently. PAST MEDICAL HISTORY: History of coronary artery disease and cardiomyopathy as well. He did undergo cardiac catheterization in the past from what I can see his last catheterization was 2007. At that time, the patient underwent cardiac catheterization. He had a 4.0 x 24 mm stent Liberte and 4.0 x 12 mm stent. The patient had ANIL 1-2 flow and he required Integrilin and adenosine. The patient had a stent placed in the right coronary in 04/2008 is a 3.5 x 28 mm stent and a 4.0 x 16 stent was placed as well. A 3.5 mm stent was postdilated to 4 mm balloon. The patient had a defibrillator placed in 2008. The patient subsequently has had a defibrillator generator changes. Other past history herniated disk repair in his back. MEDICATIONS: 1. Coreg 6.25 mg twice a day. 2. Digoxin. 3. Januvia. 4. Nexium. 5. Zetia. 6. Lasix. 7. Entresto. 8. Plavix. 9. He does not take aspirin due to nosebleeds. ALLERGIES: PENICILLIN. FAMILY HISTORY: Father had myocardial infarction and mother diabetes. SOCIAL HISTORY: Former smoker, quit several years ago. No alcohol or drugs. CODE STATUS: FULL. REVIEW OF SYSTEMS: CONSTITUTIONAL: No significant weight gain or loss. VISION: No changes. HEARING: No changes. PULMONARY: No cough or wheezing. GASTROINTESTINAL: No nausea, vomiting, diarrhea. SKIN: No rashes. NEUROLOGIC: No unilateral weakness or numbness. PSYCHIATRIC: No unusual depression or anxiety. HEMATOLOGIC: No unusual bruising. GENITOURINARY: No burning with urination. PHYSICAL EXAMINATION: GENERAL: A pleasant gentleman. He states he is not doing well because he continued to have chest bu rning. VITAL SIGNS: Blood pressure 112/60, pulse 70. HEENT: Eyes: Sclerae nonicteric. Mouth: Mucous membranes moist. NECK: Supple, no lymphadenopathy. LUNGS: Clear, no wheezing, rales, or rhonchi. CARDIAC: Normal S1, normal S2. There is no murmur, rub, or gallop. ABDOMEN: Soft, nontender. EXTREMITIES: No clubbing, cyanosis, or edema. Peripheral pulses are diminished in the femorals, but are palpable, but I do feel dorsalis pedis puls e bilaterally, right greater than left. The patient does report exertional leg pain when he tries to exert himself from his hip down. The EKG sinus rhythm, some ST depression in the inferior leads. Most recent ejection fraction was es timated by stress test at 30%. ASSESSMENT: 1. Cardiomyopathy. 2. Coronary artery disease. 3. Non-ST elevation infarction with continued chest pain. 4. Peripheral vascular disease. 5. Hypercholesterolemia, being treated. PLAN: We will need to go to the cardiac catheterization lab. The patient is at increased risk of co mplications due to the left ventricular dysfunction. However, the patient continues to have ongoing chest pain. He also appears to have peripheral vascular disease. It has been noted in the previous interventions. He did seem to have embolization with both transien t slow flow. I discussed the situation with the patient. He understands and wished to proceed. He understands the guarded prognosis.
[2017-09-18] MEDS ORDERED: Milrinone 10 MG/10 ML VIAL ONE (17:21)
--- NOTE | 2017-09-18 17:32 | CON ---
DATE OF CONSULTATION: 09/18/2017 PRIMARY CARE PHYSICIAN: Abdelrahman Robison M.D. PRIMARY MANAGER FINANCIAL SERVICES: Rakesh Guerra M.D. PRIMARY CARE PHYSICIAN: Linda Christine M.D. CHIEF COMPLAINT: Chest pain. HISTORY OF PRESENT ILLNESS: The patient is a 62-year-old diabetic male with known coronary disease and ischemic cardiomyopathy. Many years ago, he had a myocardial infarction, the pain of which he described in terms of the movie Alien, something trying to escape from his chest. He has undergone previous stenting procedures with stents in his LAD and his right coronary and he has undergone dual chamber pacemaker and AICD implantation. As I piece it together , while he has had some paced events, he has never had any shocks and AICD was placed primarily because of his low EF and risk of sudden . The patient had been doing fairly well, but over the last few days began developing burning chest pain that radiated into his left arm and occasionally up into his neck and face doing minimal exertion such as walking across the yard. This morning, at presentation, he was standing at the refrigerator to get something to eat when he began having more serious episode of the same kind of pain with more intense tingling in his face and his arm. It lasted for about 30 minutes before going away, where his previous episodes had happened during activity and only lasted 5-10 minutes. When he presented to his local emergency facility in [place], his troponins apparently were already positive and he was transferred here. He was taken to the director of cath lab where he was found to have very high grade lesions in both his right coronary and LAD stents. He was having chest pain on and off immediately after the procedure and upon arrival in the ICU afterwards, he was having what he described as 10/10 chest pain that gradually got better with IV nitroglycerin and by the time, I was seeing him an hour or so into his post-catheterization course, he was comfortable and pain free. PAST MEDICAL HISTORY: Significant for coronary disease and ischemic cardiomyopathy. At baseline apparently has apical akinesis with an EF of around 20%. He has type 2 diabetes and hyperlipidemia. He describes his initial AICD becoming infected and having to be removed and then later replaced and then sometime in the last few years, had a battery change. HOME MEDICATIONS: Coreg 6.25 mg b.i.d., Entresto 49/51 one p.o. b.i.d., Zetia 10 mg q.a.m., fenofibrate 135 mg at bedtime, niacin 750 mg at bedtime, pitavastatin (Livalo) 2 mg at bedtime, empagliflozin 12.5/metformin 1000 mg 1 b.i.d., Januvia 100 mg a day, exenatide microspheres 2 mg subcu weekly, digoxin 0.125 mg a day, Lasix 80 mg b.i.d. at 6:00 a.m. and 2:00 p.m., and potassium chloride 20 mEq b.i.d., Plavix 75 mg a day. ALLERGIES: He reports an allergy to PENICILLIN, which causes rash. SOCIAL HISTORY: He quit smoking several years ago, although he reportedly smoked heavily for about 35 years. He quit after his heart attack about 10-15 years ago. REVIEW OF SYSTEMS: Significant for a little bit of dizziness with this episode and some transient left face and hand numbness about 5 years ago. He has not had any issues with orthopnea, PND, dependent edema or even with these episodes of shortness of breath or diaphoresis. PHYSICAL EXAMINATION: GENERAL: He is now comfortable. VITAL SIGNS: Height is 6 feet tall, weighs 190-1/2 pounds. Temperature is 98.0 , heart rate 72, blood pressure is 112/60, room air sats are 96%. HEENT: He has no xanthelasma. NECK: No JVD, no carotid bruits. LUNGS: Clear to auscultation. CARDIOVASCULAR: He has regular rate and rhythm. ABDOMEN: Soft and nontender without organomegaly, masses or bruits. EXTREMITIES: He has palpable radial and ulnar pulses bilaterally with normal Danny's exam bilaterally (he is right hand dominant). He has bandaged right groin and he is somewhat tender there, but no swelling or bruising. He has strong left femoral pulse and has palpable posterior tibial pulses bilaterally and palpable dorsalis pedis pulses. LABORATORY DATA: White blood cell count 6.8, hemoglobin 13.4, platelets 254, 000. Normal electrolytes. Glucose is 132, BUN 19, creatinine 1.23. His troponins here have been 0.599, 0.538, and 0.529. He has not had a chest x-ray done yet. His cardiac catheterization shows a right dominant system with a long stent in the proximal to mid vessel with a 95% or so lesion within the stent distally. He has normal vasculature in the right coronary system beyond that. He has a very short but normal left main with unobstructed flow in the circumflex system. He has a stent in his LAD just beyond the first septal executive kitchen manager and very proximally within that subtotal lesion, there is a long tubular lesion involving the LAD beyond that with maximum stenosis in that area of around 60%. He has noticeably slow filling in the LAD. He has large area of apical akinesis or severe hypokinesis, making it somewhat problematic to calculate EF, but I would agree with Dr. Robison's assessment that it was around 20%. His LV pressure were 101 and 102 over 0 with EDP is in 6 and aortic pressure on pullback was 94/43 with a mean of 63. IMPRESSION AND RECOMMENDATIONS: Certainly, the patient's baseline low EF increases his perioperative morbidity and mortality as does this fresh [place]. My biggest concern, however, is the very high grade nature of his disease, particularly the very proximal nature of his LAD disease with slow filling in the LAD and the post-infarction angina. He is currently under control and I suppose one could take that as license to do wait while he "cools down." However, I think that in all the likelihood that this is probably our best opportunity to take him to the OR for surgical revascularization while he is stable. I have discussed this with him and his family and while understandably anxious about it, he agrees to proceed. KYLER
[2017-09-18] MEDS ORDERED: Albumin 5% 500 ML ONE (18:02)
[2017-09-18] MEDS ORDERED: Insulin Regular 300 UNITS/3 ML VIAL ONE (18:20)
[2017-09-18] MEDS ORDERED: EPINEPHrine 1 MG/10 ML Abboject SYRINGE ONE (19:11)
[2017-09-18] MEDS ORDERED: DEXTROSE IVPB SCH (20:15)
[2017-09-18] MEDS ORDERED: WATER IVPB SCH (20:15)
[2017-09-18] MEDS ORDERED: ADMIXTURE FEE IVPB SCH (20:15)
[2017-09-18] MEDS ORDERED: DOBUTAMINE IVPB SCH (20:15)
[2017-09-18] MEDS ORDERED: Potassium Chloride 20 MEQ/100 ML PREMIX BAG IVPB PRN (20:52)
[2017-09-18] MEDS ORDERED: Promethazine HCl 25 MG/ML VIAL IM PRN (20:52)
[2017-09-18] MEDS ORDERED: Post-Op Insulin Drip Protocol IVPB SCH (20:52)
[2017-09-18] MEDS ORDERED: Ondansetron HCl/PF 4 MG/2 ML Vial IVP PRN (20:52)
[2017-09-18] MEDS ORDERED: hydrALAZINE 20 MG/ML VIAL SLOW IVP PRN (20:52)
[2017-09-18] MEDS ORDERED: Fentanyl 100 MCG/2 ML VIAL SLOW IVP PRN (20:52)
[2017-09-18] MEDS ORDERED: Acetaminophen 325 MG TAB PO PRN (20:52)
[2017-09-18] MEDS ORDERED: Nitroglycerin 50 MG/250 ML BOT 250 ML IVPB PRN (20:52)
[2017-09-18] MEDS ORDERED: Hetastarch 6% 500 ML 500 ML IVPB PRN (20:52)
[2017-09-18] MEDS ORDERED: Bisacodyl 10 MG SUPP PR PRN (20:52)
[2017-09-18] MEDS ORDERED: Bisacodyl 5 MG TAB PO PRN (20:52)
[2017-09-18] MEDS ORDERED: Morphine 4 MG/ML VIAL SLOW IVP PRN (20:52)
[2017-09-18] MEDS ORDERED: Mag-Al 1200 mg/1200 mg/30 ML UDCUP PO PRN (20:52)
[2017-09-18] MEDS ORDERED: Atorvastatin Calcium 10 MG TAB PO SCH (21:00)
[2017-09-18] MEDS ORDERED: NIACIN PO SCH (21:00)
[2017-09-18] MEDS ORDERED: Clopidogrel Bisulfate 75 MG TAB PO SCH (21:00)
[2017-09-18] MEDS ORDERED: Dextrose 50% Abboject 50 ML SYRINGE SLOW IVP PRN (21:10)
[2017-09-18] MEDS ORDERED: Dextrose 5% in Water 1,000 ML IV PRN (21:10)
[2017-09-18] MEDS ORDERED: EPINEPHrine 2 MG, Admixture Fee 1 EACH in Dextrose 5% in Water 250 ML IV SCH (21:30)
[2017-09-18 21:37] LABS: INR-International Normal Ratio 1.4; PTT 31.5 SEC (22.9-36.1); Prothrombin Time 17.6 SEC (12.0-14.7)
[2017-09-18 21:42] LABS: Hemoglobin 11.8 g/dL (14.0-18.0); Mean Corpuscular HGB CONC 33.2 g/dL (32.0-36.0); Mean Corpuscular Hemoglobin 29.9 pg (27.0-31.0); Mean Corpuscular Volume 90.1 fl (80.0-94.0); Mean Platelet Volume 7.7 fL (7.4-10.4); Platelet Count 357 thou/uL (130-400); RBC Distribution Width 12.5 % (11.5-14.5); Red Blood Cell (RBC) Count 3.96 mill/uL (4.70-6.10); White Blood Cell (WBC) Count 21.9 thou/uL (4.8-10.8)
[2017-09-18 21:55] LABS: Anion Gap 13 mmol/L (10-20); BUN (Urea Nitrogen) 16 mg/dL (8.4-25.7); Band 25 % (5-11); Calc. Creatinine Clearance 72 mL/min (70-130); Calcium 8.1 mg/dL (7.8-10.44); Carbon Dioxide 22 mmol/L (23-31); Chloride 112 mmol/L (98-107); Eosinophils 3 % (0-10); Estimated GFR-MDRD 57; Glucose 179 mg/dL (80-115); Large Platelets SLIGHT; Lymphocytes 6 % (21-51); MDiff Complete? YES; Metamyelocyte 4 % (0-0); Monocytes 2 % (0-10); Neutrophil 59 % (42-75); PLT Morphology Comment Appears Adequate; Polychromasia SLIGHT = 2-3 cells (100X) (0-2/hpf); Potassium 3.7 mmol/L (3.5-5.1); Reactive Lymphocytes 1 % (0-10); Sodium 143 mmol/L (136-145)
[2017-09-18] MEDS: Atorvastatin Calcium 10 MG TAB PO SCH (22:30)
[2017-09-18] MEDS: Ferrous Sulfate 325 MG TAB PO SCH (22:32)
[2017-09-18] MEDS: Sodium Chloride 0.9% 1,000 ML IV SCH (22:53)
--- NOTE | 2017-09-18 22:53 | RAD ---
PORTABLE AP CHEST X-RAY: 09/18/17 HISTORY: Post open heart surgery. COMPARISON: 09/18/17 FINDINGS: A dual lead left subclavian AICD device is again noted in place. Mediastinal drains and left sided th oracostomy tube are noted in place. Endotracheal tube is noted in place with the tip overlying T3-4 l evel and above the level of the carinal Right subclavian central venous catheter is noted in place wi th tip overlying the right atrium. Postsurgical changes related to CABG are noted. There is atelectas is at the left lung base. This exam is obtained with a shallow depth of inspiration. The cardiac silh ouette and pulmonary vasculature appear to be within normal limits. No other interval change. IMPRESSION: 1. Postsurgical change related to CABG with lines and tubes in place as described above. 2. Atelectasis left lung base. No pneumothorax is present. POS: [facility]
[2017-09-18 23:12] LABS: Actual Bicarbonate (HCO3a) 20.1 mEq/L (22-26); Base Excess (BEa) -3.3 mEq/L (0 (+/-) 2.5); CO2 Tension 30.9 mmHg (35.0-45.0); Calcium, Ionized 1.2 mmol/L (1.12-1.30); Hematocrit-ABG 31.4 % (42.0-52.0); Hemoglobin (Hb) 11.2 g/dL (14.0-18.0); O2 Tension (PaO2) 85.5 mmHg (80.0-100.0); Puncture Site LINE; pH, Arterial 7.43 (7.35-7.45)
[2017-09-18 23:13] LABS: ALV-art Gradient 159.075 (0-20)
[2017-09-18] MEDS: Fentanyl 100 MCG/2 ML VIAL SLOW IVP PRN (23:43)
--- NOTE | 2017-09-19 00:35 | OP ---
DATE OF PROCEDURE: 09/18/2017 PROCEDURES PERFORMED: Right subclavian central line placement, emergent coronary artery bypass grafting x2 with left internal mammary artery to the left anterior descending and reverse greater saphenous vein graft from the innominate artery to the PDA. A 5-[place]an right femoral arterial line placement with ultrasound on guidance. PREOPERATIVE DIAGNOSIS: Coronary artery disease with ischemic cardiomyopathy and post-infarction angina. POSTOPERATIVE DIAGNOSIS: Coronary artery disease with ischemic cardiomyopathy and post-infarction angina. SURGEON: Jimmy Marlow MD REMOVABLE PROSTHODONTIST: Ahsan. ANESTHESIA: General endotracheal anesthesia. INDICATIONS: The patient is a 62-year-old man with previous right coronary and LAD stenting procedures with a known ischemic cardiomyopathy. Over the last few days,he began developing stuttering pattern of burning chest pain radiating to his arm with minimal exertion. This morning, he had a prolonged episode at rest and presented to the hospital. Cardiac catheterization demonstrated very high grade in-stent stenosis in both his LAD and his right coronary. His LVEF was about 20% comparable to his baseline. His LVEDP was 6. Post-procedure, he began having more chest pain that ultimately was brought under control with IV nitroglycerin. He is now taken to the operating room emergently for coronary revascularization. FINDINGS: Pump time 133 minutes. Cross-clamp time is 0. There was extensive plaque in the ascending aorta, precluding aortic cannulation or clamping. The innominate artery was soft. There were extensive intrapericardial adhesions throughout the pericardial well, consistent with previous pericarditis. The patient had good quality JOIE and saphenous vein. The LAD with about 2-2.5 mm vessel. The PDA was about a 1.5-2 mm vessel. NARRATIVE REPORT: After informed consent was obtained, the patient taken to the operating room and placed in supine position on the operating table. After the induction of general anesthesia, the patient's right upper chest is prepped and draped in sterile fashion. The patient was placed in Trendelenburg and by the Seldinger technique, a triple-lumen central line kit was used to place a central line via the right subclavian route. All three ports easily aspirated and flushed. The line was secured and then the patient's torso, groins, and lower extremities were prepped and draped in a sterile fashion. Because by ultrasound, the patient's right greater saphenous appeared to be better vessel. It was elected to harvest the vein from the right proximal thigh. This was done through a single incision in the upper thigh harvesting the vein at the saphenofemoral junction down to the distal thigh. The vein was prepared for use as a graft. The harvest site was closed in layers of subcutaneous and subcuticular Vicryl. The median sternotomy was performed. The left JOIE was mobilized as a pedicle from the level of the xiphoid to the level of the subclavian vein and extrapleural exposure was attempted, but there were 2 or 3 rents in the pleura anteriorly and the pleura was quite thin, not amenable to repair. The patient was heparinized. The mammary was ligated and divided distally. There is good flow through the mammary which was then instilled intraluminally with papaverine solution. The mammary bed was inspected for hemostasis. The JOIE retractor was placed with an Ankeney. Upon entering the pericardium, it could immediately be appreciated that there was essentially no free space in the pericardium because of adhesions. Scissors were used to sharply lysed these adhesions. When the aorta was exposed, it was palpated and it could be appreciated and it was diffusely involved with hard plaque. There was a soft area to the right lateral aspect, but otherwise there was no area of the aorta for cannulation, not appear to be amenable to clamping. The innominate artery was exposed and it was a large soft vessel. The adhesions in the pericardium were lysed along the anterior surface of the heart, the diaphragmatic surface and along the right atrium. An oblique incision was then made in the left groin about a fingerbreadth below the groin crease. The common femoral artery was exposed and isolated. It was soft, medium-sized vessel. A 20 [place] wire reinforced, thin walled femoral arterial cannula was selected. The artery was opened transversely between vascular clamps and the cannula inserted and secured by its Rumel. It was not readily advanced all the way, it was advanced no further than that resistance. There was good back bleeding from it; however, it was secured with Rumel because of concerns that the harvested vein might not quite reach the innominate artery, saphenous vein, and lager tributary tip was harvested through that incision as well. A pursestring was placed in the right atrium near the appendage and a venous cannula was inserted. Cardiopulmonary bypass was instituted and the patient was kept warm with bypass support, the remaining intrapericardial adhesions were lysed and the heart was examined. The right coronary artery could not readily be identified in spite of palpation seeming to identify stents. The apex of the heart was lifted up and the PDA was identified. It was about a 1.5 perhaps 2 mm vessel. The LAD was then examined. It was deep within the epicardial fat, but was a fairly good size, good quality vessel. A blunt vessel loop was passed deep to the proximal portion of the PDA to obstruct inflow to that point and the PDA was opened. The blower-mister was used to facilitate exposure of the arteriotomy and reverse greater saphenous vein is anastomosed there end-to-side with running Prolene suture and the anastomosis was tested by flushing blood through the graft. It appeared to be hemostatic. Attention was then turned to the LAD. The mammary was introduced into the pericardium through a slit was made in the pericardium anterior to the left phrenic nerve. The LAD was controlled proximally and opened and the mammary was anastomosed to it with running 7-0 Prolene. The initial attempt at grafting , the LAD had to be redone because of the mammary escobedo tore after about 2/3rd of the anastomosis and then sewn, that was taken down the mammary freshened and the anastomosis done a second time, it flushed well, appeared to be hemostatic. The innominate artery was then exposed. The vein graft appeared to reach the innominate. Vascular clamps were applied to the innominate artery, which was then opened longitudinally on its inferior surface and the vein was anastomosed there with running 6-0 Prolene. The innominate was forward and backbled and then the vascular controls released and the vein graft deaired. Flow through the vein graft appeared problematic without any specific problem identified other than the escobedo of the vein graft not being particularly generous. It was opted to redo the anastomosis changing the orientation slightly, so that the heel of the anastomosis would be coming off posteriorly or rather than medially and when that had been accomplished flow through the vein graft appeared to be excellent. The anastomoses were inspected for hemostasis. Posterior pericardial and left pleural drains were brought out through separate incisions and secured with suture. Right atrial and right ventricular temporary epicardial pacing wires were placed. At about this time, the radial arterial line becoming very poorly functional and did not appear to be salvageable. Attempts to transduce off of side port, the femoral arterial cannula were likewise and satisfactory. Using ultrasound, the right femoral artery was cannulated with a large bore needle through which a guide-wire was placed and a 5-[place]an sheath was inserted. Consistent with some tortuosity in the vessel, the guide-wire did not easily pass for its full length, but only a partial length, but the catheter, once the wire had been removed, aspirated and flushed well, it was secured and transducing from there was commenced. The patient required pressor support and blood products to wean from bypass. The venous cannula was removed and its pursestring secured with a Rumel. The patient was auto transfused with pump blood through the femoral arterial line, which was then removed and the arteriotomy repaired with running 5-0 Prolene suture, that wound was packed off, protamine was administered, and the venous pursestring was secured. The mammary bed was inspected for hemostasis and a sternal retractor replaced. It was not feasible to completely close the pericardium, but it was possible to reapproximate the mediastinal fat and do a loose reapproximation of the pericardium at the diaphragmatic surface over an anterior mediastinal drain. While pressor agents were being titrated in the heart and observed, the left groin wound was closed, placing a 19-[place]an bulb suction drain in the vein harvest bed medially, that wound was closed in layers of subcutaneous and subcuticular Vicryl. When satisfied that hemostasis was adequate, hemodynamics were acceptable, the sternum was reapproximated with #7 stainless steel wires. Fascia was closed over the wires with heavy Vicryl. Subcutaneous tissue was irrigated and reapproximated and skin closed with Vicryl subcuticular stitch. The wounds were dressed and the patient was taken to the Intensive Care Unit in stable condition. KYLER
[2017-09-19] MEDS: Norepinephrine 8 MG/0.9% NS 250 ML IVPB PRN ×4 (00:37→21:26)
[2017-09-19] MEDS: Ubidecarenone 50 MG CAP PO SCH ×2 (01:14→21:28)
[2017-09-19 05:20] LABS: Hemoglobin 10.4 g/dL (14.0-18.0); Potassium 3.3 mmol/L (3.5-5.1)
[2017-09-19 05:23] LABS: #Eosinphils 0.1 thou/uL (0.0-0.7); #Lymphocytes 0.9 thou/uL (1.20-3.40); #Monocytes 1.8 thou/uL (0.11-0.59); #Neutrophils 15.7 thou/uL (1.40-6.50); %Basophils 0.2 % (0.0-1.0); %Eosinophils 0.3 % (0.0-10.0); %Lymphocytes 4.9 % (21.0-51.0); %Monocytes 9.7 % (0.0-10.0); %Neutrophils 84.9 % (42.0-75.0); Hemoglobin 10.4 g/dL (14.0-18.0); Mean Corpuscular Hemoglobin 30.2 pg (27.0-31.0); Mean Corpuscular Volume 88.7 fl (80.0-94.0); Mean Platelet Volume 8.3 fL (7.4-10.4); Platelet Count 348 thou/uL (130-400); RBC Distribution Width 12.3 % (11.5-14.5); Red Blood Cell (RBC) Count 3.46 mill/uL (4.70-6.10); White Blood Cell (WBC) Count 18.5 thou/uL (4.8-10.8)
[2017-09-19 05:24] LABS: Anion Gap 13 mmol/L (10-20); BUN (Urea Nitrogen) 16 mg/dL (8.4-25.7); Calc. Creatinine Clearance 94 mL/min (70-130); Calcium 8.4 mg/dL (7.8-10.44); Carbon Dioxide 21 mmol/L (23-31); Chloride 113 mmol/L (98-107); Estimated GFR-MDRD 69; Glucose 120 mg/dL (80-115); Potassium 3.3 mmol/L (3.5-5.1); Sodium 144 mmol/L (136-145)
[2017-09-19] MEDS ORDERED: Acetaminophen 1,000 MG in Premix Bag 1 BAG IVPB SCH (05:30)
[2017-09-19] MEDS ORDERED: Metoprolol Tartrate 5 MG/5 ML VIAL ONE (06:55)
[2017-09-19] MEDS ORDERED: Metoprolol Tartrate 5 MG/5 ML VIAL IVP PRN (06:55)
[2017-09-19] MEDS ORDERED: Amiodarone In Dextrose 200 ML IVPB SCH (07:15)
[2017-09-19] MEDS ORDERED: Digoxin 0.5 MG/2 ML AMP SLOW IVP SCH (07:15)
[2017-09-19 07:24] LABS: Actual Bicarbonate (HCO3a) 19.9 mEq/L (22-26); Base Excess (BEa) -2.5 mEq/L (0 (+/-) 2.5); CO2 Tension 36.6 mmHg (35.0-45.0); Hematocrit-ABG 27.8 % (42.0-52.0); Hemoglobin (Hb) 9.7 g/dL (14.0-18.0); O2 Tension (PaO2) 75.9 mmHg (80.0-100.0); pH, Arterial 7.49 (7.35-7.45)
[2017-09-19 07:25] LABS: Calcium, Ionized 1.2 mmol/L (1.12-1.30); Puncture Site ALINE
[2017-09-19] MEDS ORDERED: Amiodarone HCl 150 MG in Dextrose 5% in Water 100 ML IVPB SCH (07:30)
[2017-09-19] MEDS: Fentanyl 100 MCG/2 ML VIAL SLOW IVP PRN ×3 (07:46→23:48)
[2017-09-19] MEDS ORDERED: Potassium Chloride 40 MEQ in Premix Bag 1 BAG IVPB SCH (08:00)
[2017-09-19] MEDS: Amiodarone HCl 450 MG, Admixture Fee 1 EACH in Dextrose 5% in Water 250 ML IVPB SCH ×2 (08:25→17:30)
[2017-09-19] MEDS ORDERED: Digoxin 0.125 MG TAB PO SCH (09:00)
[2017-09-19] MEDS: Clopidogrel Bisulfate 75 MG TAB PO SCH (09:16)
[2017-09-19] MEDS: Carvedilol 3.125 MG TAB PO SCH ×2 (09:34→21:28)
[2017-09-19] MEDS: Potassium Chloride 20 MEQ TAB PO SCH ×2 (09:35→21:27)
--- NOTE | 2017-09-19 09:50 | RAD ---
PORTABLE SUPINE FRONTAL CHEST RADIOGRAPH: Date: 09/19/17 COMPARISON: 09/18/17. HISTORY: Evaluate chest following open heart surgery. FINDINGS: Stable endotracheal tube. Drainage catheters overlie the lower mediastinum, the cardiac silhouette, a nd the left hemithorax. Stable transvenous pacing device, right-sided vascular catheter, and midline sternotomy wires. Minimal increased linear density noted in the medial left lung base, stable. There is atherosclerotic calcification of the aortic arch. IMPRESSION: No significant interval change. POS: [facility]
--- NOTE | 2017-09-19 10:14 | CON ---
DATE OF CONSULTATION: 09/19/2017 CONSULTING PHYSICIAN: Jimmy Marlow MD REASON FOR CONSULTATION: Postoperative ventilator management, following encompassed 45 minutes criti michael care time. HISTORY OF PRESENT ILLNESS: The patient is a 62-year-old male who underwent emergent coronary artery bypass grafting surgery last night. He was admitted to the hospital on 09/17/2017 with chest pain. He underwent coronary angiography, which demonstrated multivessel disease and ended up going for byp ass last night. PAST MEDICAL HISTORY: 1. Coronary artery disease. 2. Anterior myocardial infarction. 3. Ischemic cardiomyopathy. 4. Hyperlipidemia. 5. Diabetes mellitus. 6. AICD placement. PAST SURGICAL HISTORY: 1. Cardiac catheterization with stent. 2. Back surgery. 3. Cholecystectomy. MEDICATIONS PRIOR TO ADMISSION: Coreg, potassium chloride, Januvia, Nexium, Zetia, Lasix, Entresto, Bydureon, fenofibrate, Livalo, Plavix, and Coenzyme. ALLERGIES: PENICILLIN. FAMILY MEDICAL HISTORY: Remarkable for heart disease, diabetes, and hypertension. SOCIAL HISTORY: Quit smoking several years ago. Does not consume alcohol. REVIEW OF SYSTEMS: Cannot be obtained as the patient is on mechanical ventilation. PHYSICAL EXAMINATION: VITAL SIGNS: Heart rate 87, blood pressure 121/63, CVP 10 on 79%. GENERAL: The patient is stable, remains on some Levophed. HEENT: Unremarkable. NECK: Without adenopathy or JVD. LUNGS: Clear without wheezing or rhonchi. CARDIOVASCULAR: S1, S2 regular without murmur. ABDOMEN: Soft, nontender. EXTREMITIES: No edema. X-RAY FINDINGS: His chest x-ray shows proper ET tube position. He has a chest tube in the left ches t. He has a mediastinal tube in place. Lung mina looked clear. LABORATORY DATA: Sodium 144, potassium 3.3, chloride 113, CO2 21, BUN 16, creatinine 1.0, glucose 12 0. ABG pending last night. ABG, pH 7.43, pCO2 30, pO2 of 85. White blood cell count 18.5, hematocr it 30.7, platelet count 348. ASSESSMENT: 1. Post-coronary artery bypass grafting 2. Acute respiratory failure, requiring mechanical ventilation. 3. Hypokalemia. 4. Previous smoking history. PLAN: 1. Start nebulization treatments. 2. Wean per post-CABG protocol if okay with CV Surgery. 3. Potassium is being replaced per post-CABG protocol.
[2017-09-19] MEDS: Sodium Chloride 0.9% 1,000 ML IV SCH (10:56)
--- NOTE | 2017-09-19 10:56 | PDOC.PN ---
- Subjective Encounter Start Date: 09/19/17 Encounter Start Time: 10:55 Patient seen and examined, admits to chest pain at surgical site which is bit better than yesterdya, no other issues or complaints. All questions answered, no family at bedside. - Objective Vital Signs & Weight: Vital Signs (12 hours) Temp Pulse Pulse Resp BP BP Pulse Ox 09/19/17 09:18 76 24 H 96 09/19/17 09:15 74 09/19/17 08:02 74 09/19/17 07:18 129 H 22 H 94 L 09/19/17 06:41 87 122/68 99 09/19/17 04:00 21 H 09/19/17 02:00 17 09/19/17 00:05 97.9 F 87 19 117/59 L 98 09/19/17 00:00 19 Weight Admit Weight 186 lb 11.704 oz Weight 205 lb 14.588 oz Most Recent Monitor Data Heart Rate from ECG 80 NIBP 105/54 NIBP BP-Mean 68 Respiration from ECG 11 SpO2 98 I&O: 09/18/17 09/19/17 09/20/17 06:59 06:59 06:59 Intake Total 480 460 Output Total 1210 145 Balance 480 -750 -145 Result Diagrams: 09/19/17 03:41 09/19/17 03:41 Additional Labs: Accuchecks 09/19/17 09/19/17 09/19/17 04:04 02:22 01:46 POC Glucose 124 H 132 H 110 09/19/17 09/18/17 09/18/17 00:30 23:38 22:16 POC Glucose 121 H 136 H 146 H 09/18/17 09/18/17 09/18/17 21:15 20:51 19:14 POC Glucose 169 H 181 H 256 H 09/18/17 09/18/17 09/18/17 18:19 17:36 16:24 POC Glucose 233 H 159 H 124 H 09/18/17 14:41 POC Glucose 106 Phys Exam - Physical Examination mild distress HEENT: PERRLA, moist MMs Neck: no nodes, no JVD, supple Respiratory: no wheezing, no rales, no rhonchi Cardiovascular: no significant murmur, irregular surgical site C/D/I Gastrointestinal: soft, non-tender, no distention Musculoskeletal: pulses present, edema present (trace) Neurological: non-focal, normal sensation Psychiatric: normal affect, A&O x 3 Dx/Plan (1) S/P CABG (coronary artery bypass graft) Code(s): Z95.1 - PRESENCE OF AORTOCORONARY BYPASS GRAFT Status: Acute (2) Chest pain Code(s): R07.9 - CHEST PAIN, UNSPECIFIED Status: Acute Qualifiers: Ischemic chest pain type: unstable angina pectoris (3) AICD (automatic cardioverter/defibrillator) present Code(s): Z95.810 - PRESENCE OF AUTOMATIC (IMPLANTABLE) CARDIAC DEFIBRILLATOR Status: Chronic (4) CAD (coronary artery disease) Code(s): I25.10 - ATHSCL HEART DISEASE OF [place] CORONARY ARTERY W/O ANG PCTRS Status: Chronic Qualifiers: Coronary Disease-Associated Artery/Lesion type: [place] artery [place] vs. transplanted heart: [place] heart Associated angina: with unstable angina Qualified Code(s): I25.110 - Atherosclerotic heart disease of [place] coronary artery with unstable angina pectoris (5) DM2 (diabetes mellitus, type 2) Status: Chronic Qualifiers: Diabetes mellitus fpc insulin use: with intermediate accountant use Diabetes mellitus complication status: without complication Qualified Code(s): E11.9 - Type 2 diabetes mellitus without complications; Z79.4 - group home (current) use of insulin; Z79.4 - intermediate accountant (current) use of insulin; Z79.4 - group home ( current) use of insulin; Z79.4 - intermediate accountant (current) use of insulin (6) HLD (hyperlipidemia) Code(s): E78.5 - HYPERLIPIDEMIA, UNSPECIFIED Status: Chronic Qualifiers: (7) HTN (hypertension) Code(s): I10 - ESSENTIAL (PRIMARY) HYPERTENSION Status: Chronic Qualifiers: Hypertension type: essential hypertension (8) Ischemic cardiomyopathy Code(s): I25.5 - ISCHEMIC CARDIOMYOPATHY Status: Chronic - Plan * amio for a fib for now * pacemaker in place * s/p CABG, cardio following * monitor labs * continue current plan of care for now, no changes * pain control * case and plan d/w patient at length, he understands and agrees with this plan
[2017-09-19] MEDS: Sacubitril 49 MG/Valsartan 51 MG TABLET PO SCH ×2 (10:57→21:34)
[2017-09-19] MEDS: HYDROcodone/Acetaminophen 5/325 mg Tablet PO PRN ×3 (12:10→21:23)
--- NOTE | 2017-09-19 12:38 | PRG ---
DATE OF SERVICE: 09/19/2017 SUBJECTIVE: Mr. Weber is doing well. He underwent urgent coronary artery bypass grafting yesterd ay. He was extubated. He is awake and alert. OBJECTIVE: VITAL SIGNS: Blood pressure 110/60, pulse is 60, although he currently is in ventricular bigeminy. He recently had an episode of atrial fibrillation with a rapid rate. LUNGS: Clear. CARDIAC: Normal S1, normal S2 except these are from the bigeminy. ABDOMEN: Soft, nontender. EXTREMITIES: Warm, dry. No clubbing, cyanosis or edema. PERTINENT LABORATORY DATA: Potassium was 3.3. ASSESSMENT: 1. Status post coronary artery bypass grafting, urgent. 2. History of depressed left ventricular function. 3. Previous pacemaker defibrillator. 4. Ventricular bigeminy. 5. Hypokalemia. PLAN: 1. Agree with intravenous amiodarone. 2. We will contact the pacemaker company to see this available while we increase the baseline heart rate. 3. Reduce carvedilol for now until blood pressures more stable, post-bypass. 4. Dr. Guerra will resume the patient's care tomorrow.
[2017-09-19] MEDS: traMADol HCl 50 MG TAB PO PRN ×2 (13:00→19:24)
[2017-09-19] MEDS: Ferrous Sulfate 325 MG TAB PO SCH (21:30)
[2017-09-19] MEDS: Atorvastatin Calcium 10 MG TAB PO SCH (21:31)
[2017-09-19] MEDS ORDERED: Insulin Detemir 100 UNITS/ML 24 UNITS in Pre-Filled Syringe 1 EACH SC SCH (22:15)
[2017-09-20] MEDS: Amiodarone HCl 450 MG, Admixture Fee 1 EACH in Dextrose 5% in Water 250 ML IVPB SCH (01:16)
[2017-09-20] MEDS: HYDROcodone/Acetaminophen 5/325 mg Tablet PO PRN ×3 (03:31→15:25)
[2017-09-20 03:57] LABS: #Lymphocytes 1.3 thou/uL (1.20-3.40); #Monocytes 1.5 thou/uL (0.11-0.59); #Neutrophils 11.2 thou/uL (1.40-6.50); %Basophils 0.1 % (0.0-1.0); %Eosinophils 0.1 % (0.0-10.0); %Lymphocytes 9.2 % (21.0-51.0); %Monocytes 10.9 % (0.0-10.0); %Neutrophils 79.7 % (42.0-75.0); Hemoglobin 8.8 g/dL (14.0-18.0); Mean Corpuscular HGB CONC 34.1 g/dL (32.0-36.0); Mean Corpuscular Hemoglobin 30.6 pg (27.0-31.0); Mean Corpuscular Volume 89.9 fl (80.0-94.0); Mean Platelet Volume 7.8 fL (7.4-10.4); Platelet Count 227 thou/uL (130-400); RBC Distribution Width 12.8 % (11.5-14.5); Red Blood Cell (RBC) Count 2.88 mill/uL (4.70-6.10)
[2017-09-20 04:11] LABS: Anion Gap 12 mmol/L (10-20); BUN (Urea Nitrogen) 10 mg/dL (8.4-25.7); Calc. Creatinine Clearance 0 mL/min (70-130); Calcium 8.4 mg/dL (7.8-10.44); Carbon Dioxide 23 mmol/L (23-31); Chloride 109 mmol/L (98-107); Estimated GFR-MDRD 88; Glucose 131 mg/dL (80-115); Potassium 3.6 mmol/L (3.5-5.1); Sodium 140 mmol/L (136-145)
[2017-09-20] MEDS ORDERED: Metolazone 5 MG TAB PO SCH (06:45)
[2017-09-20] MEDS: Insulin Regular 300 UNITS/3 ML VIAL SC PRN ×4 (07:58→22:30)
[2017-09-20] MEDS: Furosemide 40 MG/4 ML VIAL SLOW IVP SCH ×2 (08:10→17:53)
[2017-09-20] MEDS: Sodium Chloride 0.9% 1,000 ML IV SCH ×2 (08:10→14:42)
[2017-09-20] MEDS: Potassium Chloride 20 MEQ TAB PO SCH ×2 (08:30→22:16)
[2017-09-20] MEDS: Carvedilol 3.125 MG TAB PO SCH ×2 (08:31→22:24)
[2017-09-20] MEDS: Clopidogrel Bisulfate 75 MG TAB PO SCH (08:32)
[2017-09-20] MEDS: Ezetimibe 10 MG TAB PO SCH (08:34)
--- NOTE | 2017-09-20 08:38 | PRG ---
DATE OF SERVICE: 09/20/2017 He was successfully extubated yesterday. He is complaining of feeling hot today. PHYSICAL EXAMINATION: VITAL SIGNS: Temperature is 99.1, pulse 80, blood pressure 119/61, O2 sat 99%, 24-hour intake 3280, output 2670. HEENT: Unremarkable. NECK: No JVD. CHEST: Clear. CARDIAC: S1 and S2 regular. ABDOMEN: Soft. EXTREMITIES: No edema. LABORATORY DATA: White blood cell 14, hematocrit 25.9, platelet count 227. Sodium 140. potassium 3 .6, chloride 109, CO2 23, BUN 10, creatinine 0.8, glucose 131. ASSESSMENT: 1. Status post acute respiratory failure after coronary bypass grafting surgery - successfully extub ated and doing well. 2. Status post bypass surgery. PLAN: Hopefully, chest tubes can come out later today. Up in a chair as tolerated. Further care pe r Cardiology and CV Surgery.
--- NOTE | 2017-09-20 08:40 | RAD ---
CHEST 1 VIEW: HISTORY: Heart surgery. Followup. COMPARISON: 09/19/17. FINDINGS: Cardiac silhouette is magnified and enlarged. Pulmonary vasculature is more engorged with slight int erval increase in patchy bibasilar infiltrates. The patient is rotated leftward. Endotracheal hanny ter is no longer visible. Other lines and tubes are unchanged in position. No significant pneumotho rax. IMPRESSION: 1. Interval extubation. 2. Slight interval increased in pulmonary vascular congestion. 3. Otherwise, stable postoperative appearance of the chest. POS: [facility]
[2017-09-20] MEDS: Sacubitril 49 MG/Valsartan 51 MG TABLET PO SCH ×2 (09:57→22:18)
[2017-09-20] MEDS ORDERED: Ketorolac Tromethamine 30 MG/ML VIAL IVP SCH (12:00)
[2017-09-20] MEDS: Pitavastatin Calcium 2 MG TAB PO SCH (12:32)
[2017-09-20] MEDS ORDERED: Furosemide 40 MG/4 ML VIAL SLOW IVP SCH (14:00)
[2017-09-20] MEDS: Ketorolac Tromethamine 30 MG/ML VIAL IVP SCH ×2 (15:25→22:22)
--- NOTE | 2017-09-20 20:49 | PDOC.PN ---
- Subjective Encounter Start Date: 09/20/17 Encounter Start Time: 11:00 Patient seen and examined. No new complaints. No overnight events - Objective MAR Reviewed: Yes Vital Signs & Weight: Vital Signs (12 hours) Pulse Resp Pulse Ox 09/20/17 18:53 82 20 96 09/20/17 13:08 50 L 21 H 97 Weight Admit Weight 186 lb 11.704 oz Weight 3.298 oz Most Recent Monitor Data Heart Rate from ECG 80 NIBP 119/56 NIBP BP-Mean 91 Respiration from ECG 16 SpO2 94 I&O: 09/19/17 09/20/17 09/21/17 06:59 06:59 06:59 Intake Total 460 3280.2 1037 Output Total 1210 2670 2290 Balance -750 610.2 -1253 Result Diagrams: 09/21/17 05:16 09/21/17 05:16 Additional Labs: Accuchecks 09/20/17 09/20/17 09/20/17 17:17 12:31 03:42 POC Glucose 164 H 159 H 141 H 09/19/17 09/18/17 21:39 20:09 POC Glucose 121 H 265 H EKG Reviewed by me: Yes (Tele paced) Phys Exam - Physical Examination Constitutional: NAD on Amiodarone/Levophed drip Respiratory: no wheezing, no rhonchi Cardiovascular: RRR, no rub Gastrointestinal: soft, non-tender, positive bowel sounds Musculoskeletal: no edema Neurological: moves all 4 limbs Dx/Plan - Plan DVT proph w/SCDs IMPRESSION: 1. NSTEMI 2. CAD s/p CABG this admission 3. HTN 4. DM2 5. Dyslipidemia/ s/p AICD PLAN: * Cont post op care * Cardio/CT/Critical care following * Cont to monitor * Cont current meds as below * AM labs Review of Systems - Review of Systems Cardiovascular: negative: chest pain, palpitations, orthopnea, paroxysmal nocturnal dyspnea, edema, light headedness, other Gastrointestinal: negative: Nausea, Vomiting, Abdominal Pain, Diarrhea, Constipation, Melena, Hematochezia, Other - Medications/Allergies Allergies/Adverse Reactions: Allergies Allergy/AdvReac Type Severity Reaction Status Date / Time Penicillins Allergy Intermediate Rash Verified 11/14/15 12:44 Medications: Current Medications Acetaminophen (Tylenol) 650 mg PO Q6H PRN PRN Reason: Headache/Fever Or Mild Pain Hydrocodone Bitart/Acetaminophen ([place] 5/325) 1 tab PO Q4H PRN PRN Reason: Moderate Pain (4-6) Hydrocodone Bitart/Acetaminophen ([place] 5/325) 2 tab PO Q4H PRN PRN Reason: Severe Pain (7-10) Last Admin: 09/20/17 15:25 Dose: 2 tab Al Hydroxide/Mg Hydroxide (Maalox) 30 ml PO Q4H PRN PRN Reason: Indigestion Albuterol/Ipratropium (Duoneb) 3 ml NEB [id number] PRN PRN Reason: SHORTNESS OF BREATH Albuterol/Ipratropium (Duoneb) 3 ml NEB [id number] [facility] Last Admin: 09/20/17 18:53 Dose: 3 ml Aspirin (Aspirin Chewable) 81 mg PO DAILY [facility] Last Admin: 09/20/17 08:31 Dose: 81 mg Atorvastatin Calcium (Lipitor) 20 mg PO [facility] Last Admin: 09/19/17 21:31 Dose: Not Given Bisacodyl (Dulcolax) 10 mg PO Q12H PRN PRN Reason: Constipation Bisacodyl (Dulcolax) 10 mg [place] Q12H PRN PRN Reason: Constipation Carvedilol (Coreg) 3.125 mg PO BID [facility] Last Admin: 09/20/17 08:31 Dose: 3.125 mg Cholecalciferol (Vitamin D3) 4,000 units PO [facility] Last Admin: 09/19/17 21:29 Dose: 4,000 units Clopidogrel Bisulfate (Plavix) 75 mg PO DAILY [facility] Last Admin: 09/20/17 08:32 Dose: 75 mg Coenzyme Q10 (Coenzyme Q10) 100 mg PO [facility] Last Admin: 09/19/17 21:28 Dose: 100 mg Dextrose/Water (Dextrose 50%) 25 gm SLOW IVP PRN PRN PRN Reason: PER HYPOGLYCEMIC PROTOCOL Ezetimibe (Zetia) 10 mg PO DAILY [facility] Last Admin: 09/20/17 08:34 Dose: 10 mg Fentanyl (Sublimaze) 25 mcg SLOW IVP Q2H PRN PRN Reason: Moderate Pain (4-6) Stop: 09/20/17 20:52 Fentanyl (Sublimaze) 50 mcg SLOW IVP Q2H PRN PRN Reason: Severe Pain (7-10) Stop: 09/20/17 20:52 Last Admin: 09/19/17 23:48 Dose: 50 mcg Ferrous Sulfate (Feosol) 325 mg PO HS AJAY Last Admin: 09/19/17 21:30 Dose: 325 mg Glucagon (Glucagon) 1 mg SC PRN PRN PRN Reason: PER HYPOGLYCEMIC PROTOCOL Guaifenesin/Dextromethorphan (Robitussin Dm) 15 ml PO Q4H PRN PRN Reason: Cough Hydralazine HCl (Apresoline) 10 mg SLOW IVP Q6H PRN PRN Reason: To Maintain SBP< 140mmHG Norepinephrine Bitartrate (Levophed) 250 mls @ 0 mls/hr IVPB PRN PRN; Protocol ; Titrate PRN Reason: To maintain SBP > 90 mmHG Last Admin: 09/19/17 21:26 Dose: 250 mls Nicardipine HCl 25 mg/ Sodium (Chloride) 260 mls @ 0 mls/hr IVPB INF PRN; Protocol; Titrate PRN Reason: To Maintain SBP< 140mmHG Nitroglycerin/Dextrose (Nitroglycerin 50 Mg/250 Ml Bot) 250 mls @ 0 mls/hr IVPB PRN PRN; Protocol; Titrate PRN Reason: To Maintain SBP< 140mmHG Sodium Chloride (Normal Saline 0.9%) 1,000 mls @ 75 mls/hr IV .[id number] AJAY Last Admin: 09/20/17 14:42 Dose: Not Given Insulin Human Regular 100 (units/ Sodium Chloride) 101 mls @ 0 mls/hr IVPB INF AJAY; As Directed PRN Reason: Protocol Last Admin: 09/19/17 04:00 Dose: 101 mls Dextrose/Water (D5w) 1,000 mls @ 0 mls/hr IV INF PRN; As Directed PRN Reason: PRN HYPOGLYCEMIC PROTOCOL Epinephrine 2 mg/Miscellaneous Medication 1 each/ Dextrose/Water 252 mls @ 0 mls/hr IV INF AJAY; Titrate PRN Reason: Protocol Dobutamine HCl 500 mg/ (Dextrose/Water) 250 mls @ 0 mls/hr IVPB INF AJAY; As Directed PRN Reason: Protocol Potassium Chloride 20 meq/ (Sodium Chloride) 110 mls @ 50 mls/hr IVPB PRN PRN PRN Reason: K level </= 4.0 Last Admin: 09/20/17 09:58 Dose: 110 mls Insulin Human Regular (Humulin R) 0 units [place] Q4H PRN; Protocol PRN Reason: POST CABG SLIDING SCALE Last Admin: 09/20/17 17:18 Dose: 4 unit Ketorolac Tromethamine (Toradol) 15 mg IVP 0300,0900,1500,2100 [facility] Stop: 09/21/17 03:01 Last Admin: 09/20/17 15:25 Dose: 15 mg Miscellaneous Information (Communication Order-Pharmacy) 1 each FS ASDIR AJAY Miscellaneous Medication (Post-Op Sliding Scale) 1 each FS ONE [facility] Stop: 09/28/17 20:53 Nitroglycerin (Nitrostat) 0.4 mg SL Q5MIN PRN PRN Reason: Chest Pain Ondansetron HCl (Zofran Odt) 4 mg PO Q6H PRN PRN Reason: Nausea/Vomiting Ondansetron HCl (Zofran) 4 mg IVP Q6H PRN PRN Reason: Nausea/Vomiting Niacin [Niaspan] 750 (Er) 1 each PO HS [facility] Pitavastatin (Livalo) 2 mg PO DAILY [facility] Last Admin: 09/20/17 12:32 Dose: 2 mg Potassium Chloride (K-Dur) 20 meq PO BID [facility] Last Admin: 09/20/17 08:30 Dose: 20 meq Promethazine HCl (Phenergan) 6.25 mg IM Q4H PRN PRN Reason: Nausea/Vomiting Sacubitril/Valsartan (Entresto 49 Mg-51 Mg Tablet) 1 tab PO BID [facility] Last Admin: 09/20/17 09:57 Dose: 1 tab Sodium Chloride (Flush - Normal Saline) 10 ml IVF Q12HR [facility] Last Admin: 09/20/17 09:10 Dose: 10 ml Sodium Chloride (Flush - Normal Saline) 10 ml IVF PRN PRN PRN Reason: Saline Flush Tramadol HCl (Ultram) 50 mg PO Q6H PRN PRN Reason: Moderate Pain (4-6) Last Admin: 09/19/17 19:24 Dose: 50 mg Zolpidem Tartrate (Ambien) 5 mg PO HSPRN PRN PRN Reason: Insomnia
[2017-09-20] MEDS: Atorvastatin Calcium 10 MG TAB PO SCH (22:00)
[2017-09-20] MEDS: Ubidecarenone 50 MG CAP PO SCH (22:16)
[2017-09-20] MEDS: Ferrous Sulfate 325 MG TAB PO SCH (22:17)
[2017-09-21] MEDS: Ketorolac Tromethamine 30 MG/ML VIAL IVP SCH (02:23)
[2017-09-21] MEDS: Sodium Chloride 0.9% 1,000 ML IV SCH (02:25)
[2017-09-21 05:28] LABS: #Eosinphils 0.1 thou/uL (0.0-0.7); #Lymphocytes 1.4 thou/uL (1.20-3.40); #Monocytes 0.8 thou/uL (0.11-0.59); #Neutrophils 8.6 thou/uL (1.40-6.50); %Basophils 0.1 % (0.0-1.0); %Lymphocytes 12.6 % (21.0-51.0); %Monocytes 7.4 % (0.0-10.0); Hemoglobin 8.2 g/dL (14.0-18.0); Mean Corpuscular HGB CONC 33.5 g/dL (32.0-36.0); Mean Corpuscular Hemoglobin 29.8 pg (27.0-31.0); Mean Platelet Volume 7.7 fL (7.4-10.4); Platelet Count 171 thou/uL (130-400); RBC Distribution Width 12.6 % (11.5-14.5); Red Blood Cell (RBC) Count 2.75 mill/uL (4.70-6.10); White Blood Cell (WBC) Count 10.9 thou/uL (4.8-10.8)
[2017-09-21 05:45] LABS: Anion Gap 9 mmol/L (10-20); BUN (Urea Nitrogen) 21 mg/dL (8.4-25.7); Calc. Creatinine Clearance 0 mL/min (70-130); Calcium 7.8 mg/dL (7.8-10.44); Carbon Dioxide 26 mmol/L (23-31); Chloride 103 mmol/L (98-107); Estimated GFR-MDRD 54; Glucose 143 mg/dL (80-115); Magnesium 1.4 mg/dL (1.6-2.6); Potassium 3.5 mmol/L (3.5-5.1); Sodium 134 mmol/L (136-145)
[2017-09-21] MEDS: Insulin Regular 300 UNITS/3 ML VIAL SC PRN (06:32)
[2017-09-21] MEDS ORDERED: Sodium Chloride 0.65% Nasal 44 ML BOT EA NARE PRN (06:58)
[2017-09-21] MEDS ORDERED: Metolazone 5 MG TAB PO SCH (07:00)
[2017-09-21 07:27] VITALS: BMI 27.2
[2017-09-21] MEDS: Potassium Chloride 20 MEQ TAB PO SCH ×4 (07:57→20:30)
--- NOTE | 2017-09-21 08:28 | RAD ---
CHEST ONE VIEW: History: Heart surgery. Follow up. Comparison: 09-20-17 FINDINGS: Cardiac silhouette is magnified and enlarged. Pulmonary vasculature has improved slightly. Mediastinu m is midline with post-operative changes, aortic calcification, and a dual-lead left subclavian cardi ac electronic device. Left thoracostomy tubes remain in place. No evidence of pneumothorax. Atelectas is at the left lung base has improved slightly. IMPRESSION: Improved aeration of the left lung base. Interval decrease in pulmonary vascular congestion. Otherwis e, stable post-operative appearance of the chest. POS: [facility]
[2017-09-21] MEDS: Carvedilol 3.125 MG TAB PO SCH ×2 (08:44→20:30)
[2017-09-21] MEDS: Ezetimibe 10 MG TAB PO SCH (08:44)
[2017-09-21] MEDS: Clopidogrel Bisulfate 75 MG TAB PO SCH (08:44)
[2017-09-21] MEDS: Pitavastatin Calcium 2 MG TAB PO SCH (08:45)
[2017-09-21] MEDS: Sacubitril 49 MG/Valsartan 51 MG TABLET PO SCH ×2 (08:48→20:30)
--- NOTE | 2017-09-21 09:04 | PRG ---
DATE OF SERVICE: 09/21/2017 He is doing well, has no complaints. PHYSICAL EXAMINATION: VITAL SIGNS: Temperature 97.9, pulse 80, blood pressure 108/51. HEENT: Unremarkable. NECK: No JVD. CHEST: Clear. CARDIAC: S1, S2 regular. ABDOMEN: Soft. EXTREMITIES: No edema. Chest x-ray shows continued chest tubes in the left chest. Sodium 134, potassium 3.5, chloride 103, CO2 26, BUN 21, creatinine 1.4, glucose 143. White blood cell count 10, hematocrit 24.5, platelet co unt 171. ASSESSMENT: Post-CABG with stable respiratory status. PLAN: Hopefully, chest tubes out today and be able to transfer to the floor.
[2017-09-21] MEDS: HYDROcodone/Acetaminophen 5/325 mg Tablet PO PRN ×3 (10:17→20:29)
[2017-09-21] MEDS ORDERED: Magnesium Sulfate 2 GM in Sodium Chloride 0.9% 100 ML IVPB SCH (10:30)
[2017-09-21] MEDS ORDERED: Magnesium 2 GM/NS 0.9% 100 ML 2 GM in Premix Bag 1 BAG IVPB SCH ×2 (10:45→18:00)
[2017-09-21] MEDS: Guaifenesin DM 100-10/5 ML UDCUP PO PRN ×2 (11:23→20:29)
[2017-09-21] MEDS: traMADol HCl 50 MG TAB PO PRN (13:35)
[2017-09-21] MEDS: Furosemide 40 MG/4 ML VIAL SLOW IVP SCH (13:44)
[2017-09-21] MEDS: Ferrous Sulfate 325 MG TAB PO SCH (20:30)
[2017-09-21] MEDS: Ubidecarenone 50 MG CAP PO SCH (20:30)
--- NOTE | 2017-09-21 21:30 | PDOC.PN ---
- Subjective Encounter Start Date: 09/21/17 Encounter Start Time: 16:30 Patient seen and examined. No new complaints. No overnight events - Objective MAR Reviewed: Yes Vital Signs & Weight: Vital Signs (12 hours) Temp Pulse Resp BP BP Pulse Ox 09/21/17 20:29 98.1 F 80 16 111/61 94 L 09/21/17 20:00 98.1 F 80 16 09/21/17 19:06 95 09/21/17 19:03 95 09/21/17 16:11 97.4 F L 80 16 99/54 L 91 L 09/21/17 11:49 80 16 94 L 09/21/17 11:25 94 L Weight Admit Weight 186 lb 11.704 oz Weight 201 lb Most Recent Monitor Data Heart Rate from ECG 93 NIBP 100/51 NIBP BP-Mean 77 Respiration from ECG 21 SpO2 95 I&O: 09/20/17 09/21/17 09/22/17 06:59 06:59 06:59 Intake Total 3280.2 2034.5 970 Output Total 2670 3690 2520 Balance 610.2 -1655.5 -1550 Result Diagrams: 09/21/17 05:16 09/21/17 05:16 Additional Labs: Accuchecks 09/21/17 09/21/17 09/21/17 16:15 14:02 05:11 POC Glucose 168 H 184 H 150 H 09/20/17 21:24 POC Glucose 164 H Laboratory Tests 09/21/17 05:16 Magnesium 1.4 L Radiology Reviewed by me: Yes (CXR - stable) EKG Reviewed by me: Yes (Tele SR) Phys Exam - Physical Examination Constitutional: NAD Chest tube and small + HEENT: PERRLA Respiratory: no wheezing, no rhonchi Scat rales at bases Cardiovascular: RRR, no rub Gastrointestinal: soft, non-tender, positive bowel sounds Musculoskeletal: no edema Neurological: moves all 4 limbs Dx/Plan - Plan small catheter, DVT proph w/SCDs IMPRESSION: 1. NSTEMI 2. CAD s/p CABG 3. HTN 4. DM2 5. LAXMI on CKD 2 - prob due to diuretics/Hypomagnessemia /Dyslipidemia / s/p AICD / h/o TIA on ASA-Plavix PLAN: * Replace Magnessium * Cardio/CT following * Cont to monitor * Cont current meds as below * AM labs * Cont post op care Review of Systems - Review of Systems Respiratory: negative: Cough, Dry, Shortness of Breath, Hemoptysis, SOB with Excertion, Pleuritic Pain, Sputum, Wheezing Cardiovascular: negative: chest pain, palpitations, orthopnea, paroxysmal nocturnal dyspnea, edema, light headedness, other - Medications/Allergies Allergies/Adverse Reactions: Allergies Allergy/AdvReac Type Severity Reaction Status Date / Time Penicillins Allergy Intermediate Rash Verified 11/14/15 12:44 Medications: Current Medications Acetaminophen (Tylenol) 650 mg PO Q6H PRN PRN Reason: Headache/Fever Or Mild Pain Hydrocodone Bitart/Acetaminophen ([place] 5/325) 1 tab PO Q4H PRN PRN Reason: Moderate Pain (4-6) Last Admin: 09/21/17 20:29 Dose: 1 tab Hydrocodone Bitart/Acetaminophen ([place] 5/325) 2 tab PO Q4H PRN PRN Reason: Severe Pain (7-10) Last Admin: 09/21/17 14:43 Dose: 2 tab Al Hydroxide/Mg Hydroxide (Maalox) 30 ml PO Q4H PRN PRN Reason: Indigestion Albuterol/Ipratropium (Duoneb) 3 ml NEB [id number] PRN PRN Reason: SHORTNESS OF BREATH Last Admin: 09/21/17 02:07 Dose: 3 ml Albuterol/Ipratropium (Duoneb) 3 ml NEB [id number] Last Admin: 09/21/17 19:03 Dose: 3 ml Aspirin (Aspirin Chewable) 81 mg PO DAILY [facility] Last Admin: 09/21/17 08:44 Dose: 81 mg Bisacodyl (Dulcolax) 10 mg PO Q12H PRN PRN Reason: Constipation Bisacodyl (Dulcolax) 10 mg [place] Q12H PRN PRN Reason: Constipation Carvedilol (Coreg) 3.125 mg PO BID [facility] Last Admin: 09/21/17 20:30 Dose: 3.125 mg Cholecalciferol (Vitamin D3) 4,000 units PO HS [facility] Last Admin: 09/21/17 20:33 Dose: 4,000 units Clopidogrel Bisulfate (Plavix) 75 mg PO DAILY [facility] Last Admin: 09/21/17 08:44 Dose: 75 mg Coenzyme Q10 (Coenzyme Q10) 100 mg PO HS [facility] Last Admin: 09/21/17 20:30 Dose: 100 mg Dextrose/Water (Dextrose 50%) 25 gm SLOW IVP PRN PRN PRN Reason: PER HYPOGLYCEMIC PROTOCOL Ezetimibe (Zetia) 10 mg PO DAILY [facility] Last Admin: 09/21/17 08:44 Dose: 10 mg Ferrous Sulfate (Feosol) 325 mg PO HS [facility] Last Admin: 09/21/17 20:30 Dose: 325 mg Furosemide (Lasix) 40 mg SLOW IVP 0600,1400 [facility] Stop: 09/22/17 06:01 Last Admin: 09/21/17 13:44 Dose: 40 mg Glucagon (Glucagon) 1 mg SC PRN PRN PRN Reason: PER HYPOGLYCEMIC PROTOCOL Guaifenesin/Dextromethorphan (Robitussin Dm) 15 ml PO Q4H PRN PRN Reason: Cough Last Admin: 09/21/17 20:29 Dose: 15 ml Hydralazine HCl (Apresoline) 10 mg SLOW IVP Q6H PRN PRN Reason: To Maintain SBP< 140mmHG Dextrose/Water (D5w) 1,000 mls @ 0 mls/hr IV INF PRN; As Directed PRN Reason: PRN HYPOGLYCEMIC PROTOCOL Potassium Chloride 20 meq/ (Sodium Chloride) 110 mls @ 50 mls/hr IVPB PRN PRN PRN Reason: K level </= 4.0 Last Admin: 09/20/17 09:58 Dose: 110 mls Insulin Human Regular (Humulin R) 0 units [place] Q4H PRN; Protocol PRN Reason: POST CABG SLIDING SCALE Last Admin: 09/21/17 06:32 Dose: 3 unit Miscellaneous Information (Communication Order-Pharmacy) 1 each FS ASDIR AJAY Miscellaneous Medication (Post-Op Sliding Scale) 1 each FS [facility] Stop: 09/28/17 20:53 Nitroglycerin (Nitrostat) 0.4 mg SL Q5MIN PRN PRN Reason: Chest Pain Ondansetron HCl (Zofran Odt) 4 mg PO Q6H PRN PRN Reason: Nausea/Vomiting Ondansetron HCl (Zofran) 4 mg IVP Q6H PRN PRN Reason: Nausea/Vomiting Pitavastatin (Livalo) 2 mg PO DAILY [facility] Last Admin: 09/21/17 08:45 Dose: 2 mg Potassium Chloride (K-Dur) 20 meq PO BID [facility] Last Admin: 09/21/17 20:30 Dose: 20 meq Promethazine HCl (Phenergan) 6.25 mg IM Q4H PRN PRN Reason: Nausea/Vomiting Sacubitril/Valsartan (Entresto 49 Mg-51 Mg Tablet) 1 tab PO BID [facility] Last Admin: 09/21/17 20:30 Dose: 1 tab Sodium Chloride (Flush - Normal Saline) 10 ml IVF Q12HR [facility] Last Admin: 09/21/17 20:35 Dose: 10 ml Sodium Chloride (Flush - Normal Saline) 10 ml IVF PRN PRN PRN Reason: Saline Flush Sodium Chloride ([place] Nasal [place] 0.65%) 0 ml EA NARE TID PRN PRN Reason: Nasal Congestion Last Admin: 09/21/17 07:54 Dose: 1 spray Tramadol HCl (Ultram) 50 mg PO Q6H PRN PRN Reason: Moderate Pain (4-6) Last Admin: 09/21/17 13:35 Dose: 50 mg Zolpidem Tartrate (Ambien) 5 mg PO HSPRN PRN PRN Reason: Insomnia
[2017-09-22] MEDS: Furosemide 40 MG/4 ML VIAL SLOW IVP SCH (05:10)
[2017-09-22 06:05] LABS: #Eosinphils 0.5 thou/uL (0.0-0.7); #Lymphocytes 1.1 thou/uL (1.20-3.40); #Neutrophils 10.9 thou/uL (1.40-6.50); %Basophils 0.2 % (0.0-1.0); %Eosinophils 3.9 % (0.0-10.0); %Lymphocytes 7.9 % (21.0-51.0); %Monocytes 7.4 % (0.0-10.0); %Neutrophils 80.6 % (42.0-75.0); Hemoglobin 9.9 g/dL (14.0-18.0); Mean Corpuscular HGB CONC 33.5 g/dL (32.0-36.0); Mean Corpuscular Hemoglobin 30.2 pg (27.0-31.0); Mean Platelet Volume 8.4 fL (7.4-10.4); Platelet Count 288 thou/uL (130-400); RBC Distribution Width 12.8 % (11.5-14.5); Red Blood Cell (RBC) Count 3.27 mill/uL (4.70-6.10); White Blood Cell (WBC) Count 13.6 thou/uL (4.8-10.8)
[2017-09-22 06:28] LABS: Anion Gap 14 mmol/L (10-20); BUN (Urea Nitrogen) 22 mg/dL (8.4-25.7); Calc. Creatinine Clearance 69 mL/min (70-130); Calcium 9.1 mg/dL (7.8-10.44); Carbon Dioxide 23 mmol/L (23-31); Chloride 102 mmol/L (98-107); Estimated GFR-MDRD 61; Glucose 154 mg/dL (80-115); Magnesium 2.2 mg/dL (1.6-2.6); Potassium 3.8 mmol/L (3.5-5.1); Sodium 135 mmol/L (136-145)
[2017-09-22] MEDS: Potassium Chloride 20 MEQ TAB PO SCH ×4 (08:17→20:03)
[2017-09-22] MEDS: Furosemide 80 MG TAB PO SCH ×2 (08:18→14:31)
[2017-09-22] MEDS: Ezetimibe 10 MG TAB PO SCH (08:18)
[2017-09-22] MEDS: Clopidogrel Bisulfate 75 MG TAB PO SCH (08:18)
[2017-09-22] MEDS: Carvedilol 3.125 MG TAB PO SCH ×2 (08:18→20:03)
[2017-09-22] MEDS: Sacubitril 49 MG/Valsartan 51 MG TABLET PO SCH ×2 (08:18→20:03)
[2017-09-22] MEDS ORDERED: Furosemide 20 MG TAB PO SCH (09:00)
[2017-09-22] MEDS: Pitavastatin Calcium 2 MG TAB PO SCH (10:17)
[2017-09-22] MEDS: Insulin Regular 300 UNITS/3 ML VIAL SC PRN (13:11)
[2017-09-22] MEDS: Ubidecarenone 50 MG CAP PO SCH (20:03)
[2017-09-22] MEDS: Ferrous Sulfate 325 MG TAB PO SCH (20:03)
--- NOTE | 2017-09-22 21:01 | PDOC.PN ---
- Subjective Encounter Start Date: 09/22/17 Encounter Start Time: 11:00 Patient seen and examined. No new complaints. No overnight events. No new CP/ SOB. Luan mcbrided - Objective MAR Reviewed: Yes Vital Signs & Weight: Vital Signs (12 hours) Temp Pulse Pulse Pulse Resp BP BP 09/22/17 20:00 98.9 F 85 16 09/22/17 19:01 87 16 09/22/17 16:25 98.8 F 80 16 09/22/17 14:43 81 80 104/53 L 98/57 L 09/22/17 13:24 88 16 09/22/17 11:10 98.4 F 82 16 09/22/17 10:44 85 82 105/52 L 92/50 L BP BP Pulse Ox Pulse Ox Pulse Ox 09/22/17 20:00 100/56 L 95 09/22/17 19:01 95 09/22/17 16:25 105/56 L 93 L 09/22/17 14:43 95 94 L 09/22/17 13:24 09/22/17 11:10 105/61 94 L 09/22/17 10:44 94 L 94 L Weight Admit Weight 186 lb 11.704 oz Weight 169 lb 6.4 oz Most Recent Monitor Data Heart Rate from ECG 93 NIBP 100/51 NIBP BP-Mean 77 Respiration from ECG 21 SpO2 95 I&O: 09/21/17 09/22/17 09/23/17 06:59 06:59 06:59 Intake Total 2034.5 970 840 Output Total 3690 5185 1690 Balance -1655.5 -4215 -850 Result Diagrams: 09/23/17 04:47 09/23/17 04:47 Additional Labs: Accuchecks 09/22/17 09/22/17 09/22/17 16:09 10:36 06:50 POC Glucose 165 H 185 H 172 H 09/21/17 21:13 POC Glucose 197 H EKG Reviewed by me: Yes (Tele SR) Phys Exam - Physical Examination Constitutional: NAD Respiratory: no wheezing, no rhonchi Chest tube + Cardiovascular: RRR, no rub Gastrointestinal: soft, non-tender, positive bowel sounds Musculoskeletal: no edema Neurological: moves all 4 limbs Dx/Plan - Plan DVT proph w/SCDs IMPRESSION: 1. NSTEMI 2. CAD s/p CABG 3. HTN 4. DM2 5. LAXMI on CKD 2 - prob due to diuretics/ Hypokalemia / Hypomagnessemia / Dyslipidemia / s/p AICD / h/o TIA on ASA-Plavix PLAN: * Cont Cardiac Rehab * Cardio/CT following * Cont to monitor * Cont current meds as below * AM labs * Cont post op care Review of Systems - Review of Systems Respiratory: negative: Cough, Dry, Shortness of Breath, Hemoptysis, SOB with Excertion, Pleuritic Pain, Sputum, Wheezing Cardiovascular: negative: chest pain, palpitations, orthopnea, paroxysmal nocturnal dyspnea, edema, light headedness, other - Medications/Allergies Allergies/Adverse Reactions: Allergies Allergy/AdvReac Type Severity Reaction Status Date / Time Penicillins Allergy Intermediate Rash Verified 11/14/15 12:44 Medications: Current Medications Acetaminophen (Tylenol) 650 mg PO Q6H PRN PRN Reason: Headache/Fever Or Mild Pain Hydrocodone Bitart/Acetaminophen ([place] 5/325) 1 tab PO Q4H PRN PRN Reason: Moderate Pain (4-6) Last Admin: 09/21/17 20:29 Dose: 1 tab Hydrocodone Bitart/Acetaminophen ([place] 5/325) 2 tab PO Q4H PRN PRN Reason: Severe Pain (7-10) Last Admin: 09/21/17 14:43 Dose: 2 tab Al Hydroxide/Mg Hydroxide (Maalox) 30 ml PO Q4H PRN PRN Reason: Indigestion Albuterol/Ipratropium (Duoneb) 3 ml NEB [id number] PRN PRN Reason: SHORTNESS OF BREATH Last Admin: 09/21/17 02:07 Dose: 3 ml Albuterol/Ipratropium (Duoneb) 3 ml NEB [id number] [facility] Last Admin: 09/22/17 19:01 Dose: 3 ml Aspirin (Aspirin Chewable) 81 mg PO DAILY [facility] Last Admin: 09/22/17 08:17 Dose: 81 mg Bisacodyl (Dulcolax) 10 mg PO Q12H PRN PRN Reason: Constipation Bisacodyl (Dulcolax) 10 mg [place] Q12H PRN PRN Reason: Constipation Carvedilol (Coreg) 3.125 mg PO BID [facility] Last Admin: 09/22/17 20:03 Dose: 3.125 mg Cholecalciferol (Vitamin D3) 4,000 units PO HS [facility] Last Admin: 09/22/17 20:03 Dose: 4,000 units Clopidogrel Bisulfate (Plavix) 75 mg PO DAILY [facility] Last Admin: 09/22/17 08:18 Dose: 75 mg Coenzyme Q10 (Coenzyme Q10) 100 mg PO HS [facility] Last Admin: 09/22/17 20:03 Dose: 100 mg Dextrose/Water (Dextrose 50%) 25 gm SLOW IVP PRN PRN PRN Reason: PER HYPOGLYCEMIC PROTOCOL Ezetimibe (Zetia) 10 mg PO DAILY [facility] Last Admin: 09/22/17 08:18 Dose: 10 mg Ferrous Sulfate (Feosol) 325 mg PO HS [facility] Last Admin: 09/22/17 20:03 Dose: 325 mg Furosemide (Lasix) 80 mg PO 0900,1400 [facility] Last Admin: 09/22/17 14:31 Dose: 80 mg Glucagon (Glucagon) 1 mg SC PRN PRN PRN Reason: PER HYPOGLYCEMIC PROTOCOL Guaifenesin/Dextromethorphan (Robitussin Dm) 15 ml PO Q4H PRN PRN Reason: Cough Last Admin: 09/21/17 20:29 Dose: 15 ml Hydralazine HCl (Apresoline) 10 mg SLOW IVP Q6H PRN PRN Reason: To Maintain SBP< 140mmHG Dextrose/Water (D5w) 1,000 mls @ 0 mls/hr IV INF PRN; As Directed PRN Reason: PRN HYPOGLYCEMIC PROTOCOL Potassium Chloride 20 meq/ (Sodium Chloride) 110 mls @ 50 mls/hr IVPB PRN PRN PRN Reason: K level </= 4.0 Last Admin: 09/20/17 09:58 Dose: 110 mls Insulin Human Regular (Humulin R) 0 units SC Q4H PRN; Protocol PRN Reason: POST CABG SLIDING SCALE Last Admin: 09/22/17 13:11 Dose: 4 unit Miscellaneous Information (Communication Order-Pharmacy) 1 each FS ASDIR AJAY Miscellaneous Medication (Post-Op Sliding Scale) 1 each FS ONE [facility] Stop: 09/28/17 20:53 Nitroglycerin (Nitrostat) 0.4 mg SL Q5MIN PRN PRN Reason: Chest Pain Ondansetron HCl (Zofran Odt) 4 mg PO Q6H PRN PRN Reason: Nausea/Vomiting Ondansetron HCl (Zofran) 4 mg IVP Q6H PRN PRN Reason: Nausea/Vomiting Pitavastatin (Livalo) 2 mg PO DAILY [facility] Last Admin: 09/22/17 10:17 Dose: 2 mg Potassium Chloride (K-Dur) 20 meq PO BID [facility] Last Admin: 09/22/17 20:03 Dose: 20 meq Potassium Chloride (K-Dur) 20 meq PO BID[facility] Last Admin: 09/22/17 16:28 Dose: 20 meq Promethazine HCl (Phenergan) 6.25 mg IM Q4H PRN PRN Reason: Nausea/Vomiting Sacubitril/Valsartan (Entresto 49 Mg-51 Mg Tablet) 1 tab PO BID [facility] Last Admin: 09/22/17 20:03 Dose: 1 tab Sodium Chloride (Flush - Normal Saline) 10 ml IVF Q12HR [facility] Last Admin: 09/22/17 20:04 Dose: 10 ml Sodium Chloride (Flush - Normal Saline) 10 ml IVF PRN PRN PRN Reason: Saline Flush Sodium Chloride ([place] Nasal [place] 0.65%) 0 ml EA NARE TID PRN PRN Reason: Nasal Congestion Last Admin: 09/21/17 07:54 Dose: 1 spray Tramadol HCl (Ultram) 50 mg PO Q6H PRN PRN Reason: Moderate Pain (4-6) Last Admin: 09/21/17 13:35 Dose: 50 mg Zolpidem Tartrate (Ambien) 5 mg PO HSPRN PRN PRN Reason: Insomnia
[2017-09-23 05:11] LABS: #Eosinphils 0.8 thou/uL (0.0-0.7); #Lymphocytes 1.2 thou/uL (1.20-3.40); #Monocytes 1.1 thou/uL (0.11-0.59); #Neutrophils 7.8 thou/uL (1.40-6.50); %Basophils 0.4 % (0.0-1.0); %Eosinophils 6.9 % (0.0-10.0); %Lymphocytes 11.2 % (21.0-51.0); %Monocytes 10.2 % (0.0-10.0); %Neutrophils 71.2 % (42.0-75.0); Hemoglobin 9.9 g/dL (14.0-18.0); Mean Corpuscular Hemoglobin 30.1 pg (27.0-31.0); Mean Corpuscular Volume 88.6 fl (80.0-94.0); Mean Platelet Volume 7.7 fL (7.4-10.4); Platelet Count 348 thou/uL (130-400); RBC Distribution Width 12.7 % (11.5-14.5); Red Blood Cell (RBC) Count 3.28 mill/uL (4.70-6.10)
[2017-09-23 05:31] LABS: Anion Gap 13 mmol/L (10-20); BUN (Urea Nitrogen) 30 mg/dL (8.4-25.7); Calc. Creatinine Clearance 59 mL/min (70-130); Calcium 9.5 mg/dL (7.8-10.44); Carbon Dioxide 28 mmol/L (23-31); Chloride 98 mmol/L (98-107); Estimated GFR-MDRD 50; Glucose 192 mg/dL (80-115); Magnesium 1.8 mg/dL (1.6-2.6); Potassium 3.3 mmol/L (3.5-5.1); Sodium 136 mmol/L (136-145)
--- NOTE | 2017-09-23 07:32 | RAD ---
CHEST 1 VIEW PORTABLE: Date: 09/23/17 HISTORY: 62-year-old male with history of recent postop open heart. COMPARISON: 09/21/17. FINDINGS: Postop midline sternotomy with left ICD and right subclavian catheter and multiple chest tubes in raudel ce. Minimal bibasilar parenchymal changes. No pneumothorax or other acute process. IMPRESSION: Stable postoperative changes with left chest tube. Continue short-term follow-up. POS: [facility]
[2017-09-23] MEDS: Pitavastatin Calcium 2 MG TAB PO SCH (08:16)
[2017-09-23] MEDS: Ezetimibe 10 MG TAB PO SCH (08:16)
[2017-09-23] MEDS: Sacubitril 49 MG/Valsartan 51 MG TABLET PO SCH ×2 (08:16→19:48)
[2017-09-23] MEDS: Furosemide 80 MG TAB PO SCH ×2 (08:16→14:57)
[2017-09-23] MEDS: Clopidogrel Bisulfate 75 MG TAB PO SCH (08:16)
[2017-09-23] MEDS: Carvedilol 3.125 MG TAB PO SCH ×2 (08:17→19:50)
[2017-09-23] MEDS: Potassium Chloride 20 MEQ TAB PO SCH ×2 (08:17→17:48)
[2017-09-23] MEDS: Fish Oil 1,000 MG CAP PO SCH ×2 (08:28→19:49)
[2017-09-23] MEDS: Insulin Regular 300 UNITS/3 ML VIAL SC PRN ×2 (12:20→16:43)
[2017-09-23] MEDS: Ubidecarenone 50 MG CAP PO SCH (19:48)
[2017-09-23] MEDS: HYDROcodone/Acetaminophen 5/325 mg Tablet PO PRN (19:49)
[2017-09-23] MEDS: Ferrous Sulfate 325 MG TAB PO SCH (19:49)
--- NOTE | 2017-09-23 23:01 | PDOC.PN ---
- Subjective Encounter Start Date: 09/23/17 Encounter Start Time: 18:00 Patient seen and examined. No new complaints. No overnight events. Chest tube dced. - Objective MAR Reviewed: Yes Vital Signs & Weight: Vital Signs (12 hours) Temp Pulse Pulse Pulse Resp BP BP 09/23/17 20:48 99.1 F 83 16 09/23/17 19:22 99.1 F 82 18 09/23/17 18:37 82 18 09/23/17 16:45 98.5 F 88 16 09/23/17 14:50 09/23/17 13:34 86 82 87/48 L 91/55 L 09/23/17 13:20 80 16 09/23/17 12:20 98.7 F 79 16 09/23/17 11:47 87 81 115/59 L 106/55 L BP BP Pulse Ox Pulse Ox Pulse Ox 09/23/17 20:48 102/55 L 94 L 09/23/17 19:22 09/23/17 18:37 97 09/23/17 16:45 90/47 L 93 L 09/23/17 14:50 95/54 L 09/23/17 13:34 09/23/17 13:20 09/23/17 12:20 98/53 L 95 09/23/17 11:47 98 94 L Weight Admit Weight 186 lb 11.704 oz Weight 173 lb 9.6 oz Most Recent Monitor Data Heart Rate from ECG 93 NIBP 100/51 NIBP BP-Mean 77 Respiration from ECG 21 SpO2 95 I&O: 09/22/17 09/23/17 09/24/17 06:59 06:59 06:59 Intake Total 970 840 960 Output Total 5185 2790 850 Balance -4215 -1950 110 Result Diagrams: 09/23/17 04:47 09/23/17 04:47 Additional Labs: Accuchecks 09/23/17 09/23/17 09/23/17 16:22 10:37 05:56 POC Glucose 152 H 168 H 188 H EKG Reviewed by me: Yes (Tele SR) Phys Exam - Physical Examination Constitutional: NAD Central line Respiratory: no wheezing, no rhonchi Cardiovascular: RRR, no rub Gastrointestinal: soft, non-tender, positive bowel sounds Musculoskeletal: no edema Neurological: moves all 4 limbs Psychiatric: A&O x 3 Dx/Plan - Plan out of bed/ambulate, DVT proph w/SCDs IMPRESSION: 1. NSTEMI 2. CAD s/p CABG 3. HTN 4. DM2 5. LAXMI on CKD 2 - prob due to diuretics/ Hypokalemia / Hypomagnessemia / Dyslipidemia / s/p AICD / h/o TIA on ASA-Plavix PLAN: * Cont current meds as below * Cont Cardiac Rehab * Cardio/CT following * Cont to monitor * AM labs * Cont post op care Review of Systems - Review of Systems Respiratory: negative: Cough, Dry, Shortness of Breath, Hemoptysis, SOB with Excertion, Pleuritic Pain, Sputum, Wheezing Cardiovascular: negative: chest pain, palpitations, orthopnea, paroxysmal nocturnal dyspnea, edema, light headedness, other - Medications/Allergies Allergies/Adverse Reactions: Allergies Allergy/AdvReac Type Severity Reaction Status Date / Time Penicillins Allergy Intermediate Rash Verified 11/14/15 12:44 Medications: Current Medications Acetaminophen (Tylenol) 650 mg PO Q6H PRN PRN Reason: Headache/Fever Or Mild Pain Hydrocodone Bitart/Acetaminophen ([place] 5/325) 1 tab PO Q4H PRN PRN Reason: Moderate Pain (4-6) Last Admin: 09/23/17 19:49 Dose: 1 tab Hydrocodone Bitart/Acetaminophen ([place] 5/325) 2 tab PO Q4H PRN PRN Reason: Severe Pain (7-10) Last Admin: 09/21/17 14:43 Dose: 2 tab Al Hydroxide/Mg Hydroxide (Maalox) 30 ml PO Q4H PRN PRN Reason: Indigestion Albuterol/Ipratropium (Duoneb) 3 ml NEB [id number] PRN PRN Reason: SHORTNESS OF BREATH Last Admin: 09/21/17 02:07 Dose: 3 ml Albuterol/Ipratropium (Duoneb) 3 ml NEB [id number] AJAY Last Admin: 09/23/17 18:37 Dose: 3 ml Aspirin (Aspirin Chewable) 81 mg PO DAILY AJAY Last Admin: 09/23/17 08:17 Dose: 81 mg Bisacodyl (Dulcolax) 10 mg PO Q12H PRN PRN Reason: Constipation Bisacodyl (Dulcolax) 10 mg MS Q12H PRN PRN Reason: Constipation Carvedilol (Coreg) 3.125 mg PO BID [facility] Last Admin: 09/23/17 19:50 Dose: 3.125 mg Cholecalciferol (Vitamin D3) 4,000 units PO [facility] Last Admin: 09/23/17 19:49 Dose: 4,000 units Clopidogrel Bisulfate (Plavix) 75 mg PO DAILY [facility] Last Admin: 09/23/17 08:16 Dose: 75 mg Coenzyme Q10 (Coenzyme Q10) 100 mg PO HS [facility] Last Admin: 09/23/17 19:48 Dose: 100 mg Dextrose/Water (Dextrose 50%) 25 gm SLOW IVP PRN PRN PRN Reason: PER HYPOGLYCEMIC PROTOCOL Ezetimibe (Zetia) 10 mg PO DAILY [facility] Last Admin: 09/23/17 08:16 Dose: 10 mg Ferrous Sulfate (Feosol) 325 mg PO [facility] Last Admin: 09/23/17 19:49 Dose: 325 mg Fish Oil (Fish Oil) 1,000 mg PO BID [facility] Last Admin: 09/23/17 19:49 Dose: 1,000 mg Furosemide (Lasix) 80 mg PO 0900,1400 [facility] Last Admin: 09/23/17 14:57 Dose: Not Given Glucagon (Glucagon) 1 mg SC PRN PRN PRN Reason: PER HYPOGLYCEMIC PROTOCOL Guaifenesin/Dextromethorphan (Robitussin Dm) 15 ml PO Q4H PRN PRN Reason: Cough Last Admin: 09/21/17 20:29 Dose: 15 ml Hydralazine HCl (Apresoline) 10 mg SLOW IVP Q6H PRN PRN Reason: To Maintain SBP< 140mmHG Dextrose/Water (D5w) 1,000 mls @ 0 mls/hr IV INF PRN; As Directed PRN Reason: PRN HYPOGLYCEMIC PROTOCOL Potassium Chloride 20 meq/ (Sodium Chloride) 110 mls @ 50 mls/hr IVPB PRN PRN PRN Reason: K level </= 4.0 Last Admin: 09/20/17 09:58 Dose: 110 mls Insulin Human Regular (Humulin R) 0 units SC Q4H PRN; Protocol PRN Reason: POST CABG SLIDING SCALE Last Admin: 09/23/17 16:43 Dose: 3 unit Miscellaneous Information (Communication Order-Pharmacy) 1 each FS ASDIR [facility] Miscellaneous Medication (Post-Op Sliding Scale) 1 each FS ONE [facility] Stop: 09/28/17 20:53 Niacin (Niaspan Er) 750 mg PO HS [facility] Last Admin: 09/23/17 19:48 Dose: 750 mg Nitroglycerin (Nitrostat) 0.4 mg SL Q5MIN PRN PRN Reason: Chest Pain Ondansetron HCl (Zofran Odt) 4 mg PO Q6H PRN PRN Reason: Nausea/Vomiting Ondansetron HCl (Zofran) 4 mg IVP Q6H PRN PRN Reason: Nausea/Vomiting Pitavastatin (Livalo) 2 mg PO DAILY [facility] Last Admin: 09/23/17 08:16 Dose: 2 mg Potassium Chloride (K-Dur) 20 meq PO BID-[facility] Promethazine HCl (Phenergan) 6.25 mg IM Q4H PRN PRN Reason: Nausea/Vomiting Sacubitril/Valsartan (Entresto 49 Mg-51 Mg Tablet) 1 tab PO BID [facility] Last Admin: 09/23/17 19:48 Dose: 1 tab Sodium Chloride (Flush - Normal Saline) 10 ml IVF Q12HR [facility] Last Admin: 09/23/17 19:50 Dose: 10 ml Sodium Chloride (Flush - Normal Saline) 10 ml IVF PRN PRN PRN Reason: Saline Flush Sodium Chloride ([place] Nasal [place] 0.65%) 0 ml EA NARE TID PRN PRN Reason: Nasal Congestion Last Admin: 09/21/17 07:54 Dose: 1 spray Tramadol HCl (Ultram) 50 mg PO Q6H PRN PRN Reason: Moderate Pain (4-6) Last Admin: 09/21/17 13:35 Dose: 50 mg Zolpidem Tartrate (Ambien) 5 mg PO HSPRN PRN PRN Reason: Insomnia
[2017-09-24 05:27] LABS: #Basophils 0.1 thou/uL (0.0-0.2); #Eosinphils 1.3 thou/uL (0.0-0.7); #Lymphocytes 1.9 thou/uL (1.20-3.40); #Monocytes 1.3 thou/uL (0.11-0.59); #Neutrophils 7.1 thou/uL (1.40-6.50); %Basophils 0.6 % (0.0-1.0); %Eosinophils 10.7 % (0.0-10.0); %Lymphocytes 16.4 % (21.0-51.0); %Monocytes 11.3 % (0.0-10.0); Hemoglobin 9.5 g/dL (14.0-18.0); Mean Corpuscular HGB CONC 33.4 g/dL (32.0-36.0); Mean Corpuscular Hemoglobin 29.5 pg (27.0-31.0); Mean Corpuscular Volume 88.4 fl (80.0-94.0); Mean Platelet Volume 7.9 fL (7.4-10.4); Platelet Count 377 thou/uL (130-400); RBC Distribution Width 12.6 % (11.5-14.5); Red Blood Cell (RBC) Count 3.21 mill/uL (4.70-6.10); White Blood Cell (WBC) Count 11.7 thou/uL (4.8-10.8)
[2017-09-24 05:41] LABS: Anion Gap 14 mmol/L (10-20); BUN (Urea Nitrogen) 35 mg/dL (8.4-25.7); Calc. Creatinine Clearance 56 mL/min (70-130); Calcium 9.7 mg/dL (7.8-10.44); Carbon Dioxide 25 mmol/L (23-31); Cardiac Risk 7.5 (Less than 4.5); Chloride 99 mmol/L (98-107); Cholesterol 135 mg/dl (< 200 Desired); Estimated GFR-MDRD 46; Glucose 144 mg/dL (80-115); HDL Cholesterol 18 mg/dL (>60 Neg Risk); LDL Cholesterol, Calculated 45 mg/dL; Magnesium 1.8 mg/dL (1.6-2.6); Potassium 3.5 mmol/L (3.5-5.1); Sodium 134 mmol/L (136-145); Triglycerides 361 mg/dL (Less than 150)
--- NOTE | 2017-09-24 07:44 | DIS ---
DATE OF ADMISSION: 09/17/2017 DATE OF DISCHARGE: 09/24/2017 PRINCIPAL DIAGNOSES: Coronary artery disease with ischemic cardiomyopathy. SECONDARY DIAGNOSES: Myocardial infarction with post-infarction, angina. PROCEDURES PERFORMED: Cardiac catheterization 09/18/2017, coronary artery bypass grafting x2 with le ft internal mammary artery to the LAD and reverse greater saphenous vein graft from the innominate ar richie to the PDA 09/18/2017. HISTORY OF PRESENT ILLNESS/HOSPITAL COURSE: The patient is a 62-year-old man with an ischemic cardio myopathy. He has had previous LAD and right coronary stenting procedures. He had a development of b urning chest pain and presented to his local medical facility and was transferred here with positive troponins. Cardiac catheterization demonstrated high grade in-stent stenoses in the right coronary a nd the proximal LAD stents and he had severe chest pain in the hour or so following cardiac catheteri zation that required IV nitroglycerin to bring under control. He underwent emergent coronary artery bypass grafting. Findings at the time of surgery included extensive intrapericardial adhesions consistent with previou s pericarditis and extensive calcification in the ascending aorta prompting femoral cannulation for c ardiopulmonary bypass support for a beating heart revascularization using a pedicle left JOIE to graft his LAD and a vein graft off of his innominate artery to graft to his PDA. He did very well postope ratively, awakening neurologically intact. He was extubated the following day and gradually weaned o ff of drips, diuresed and he is now being discharged home. His blood pressures have been a little bi t lower than normal and his Coreg dose has been cut from 6.25 mg b.i.d. to 3.125 mg b.i.d. and his En tresto is currently being held. I will plan on seeing him in the office in around 10 days or 2 weeks . Follow up with Dr. Guerra will be per him..
[2017-09-24] MEDS: Ezetimibe 10 MG TAB PO SCH (07:59)
[2017-09-24] MEDS: Clopidogrel Bisulfate 75 MG TAB PO SCH (07:59)
[2017-09-24] MEDS: Carvedilol 3.125 MG TAB PO SCH (08:00)
[2017-09-24] MEDS ORDERED: Potassium Chloride 20 MEQ TAB PO SCH (08:00)
[2017-09-24] MEDS: Furosemide 80 MG TAB PO SCH ×2 (08:00→14:53)
[2017-09-24] MEDS: Sacubitril 49 MG/Valsartan 51 MG TABLET PO SCH (08:01)
[2017-09-24] MEDS: Fish Oil 1,000 MG CAP PO SCH (08:01)
[2017-09-24] MEDS: Pitavastatin Calcium 2 MG TAB PO SCH (09:45)
--- NOTE | 2017-09-24 10:28 | RAD ---
PORTABLE CHEST ONE VIEW: History: 62-year-old male with history of shortness of breath. Comparison: 09-21-17 FINDINGS: Post underlying sternotomy changes and left ICD. Right subclavian catheter. Patchy parenchymal change s in the bases, stable. Left chest tubes have been removed. No pneumothorax. IMPRESSION: Improving bibasilar post-operative pleural and parenchymal opacity changes. Removal of the previously noted chest tubes. No pneumothorax. POS: OFF
[2017-09-24] MEDS ORDERED: Sodium Chloride 0.9% 250 ML IVPB SCH (11:15)
[2017-09-24 14:52] VITALS: BP 106/59; TEMP 98.1
--- NOTE | 2017-09-25 22:35 | DIS ---
DATE OF DISCHARGE: 09/24/2017 DISCHARGE DISPOSITION: Home. FOLLOWUP: Follow up with primary care physician, Dr. Linda Christine. ALLERGIES: The patient is allergic to PENICILLIN. The patient was seen on the day of discharge. Denies any new complaints. No chest pain, shortness o f breath, or palpitations reported. BRIEF HOSPITAL COURSE: The patient is a 62-year-old male with coronary artery disease, status post M I; hypertension; diabetes mellitus type 2; dyslipidemia; and AICD, presented to the hospital with mary st discomfort. Please refer to the history and physical dated 09/17/2017 for further details. The patient was admitted to the hospital with a diagnosis of chest discomfort, rule out acute coronar y artery syndrome. His workup was consistent with non-ST elevation TN with maximum troponin of 0.599 . Cardiac catheterization was performed that showed severe 2-vessel coronary artery disease involvin g proximal LAD and RCA with ejection fraction of 20%. He underwent coronary artery bypass grafting o n 09/18/2017. He was later transferred to the telemetry unit. His medications have been optimized p er Cardiology and Cardiovascular. He has been cleared by consultants for discharge. His carvedilol dose has been reduced to 3.125 twice a day. His Entresto will be held. FINAL DIAGNOSES: 1. Non-ST elevation myocardial infarction. 2. Coronary artery disease, status post coronary artery bypass graft on this admission. 3. Hypertension. 4. Diabetes mellitus type 2. 5. Mild acute kidney injury on chronic kidney disease stage 2, probably secondary to diuretics, impr ismael. 6. Hypokalemia. 7. Hypomagnesemia. 8. Dyslipidemia. 9. Status post automated implantable cardioverter defibrillator. 10. History of transient ischemic attack on aspirin and Plavix.
[2017-09-27 15:04] LABS: Actual Bicarbonate (HCO3a) 22.1 mEq/L (22-26); CO2 Tension 35.6 mmHg (35.0-45.0); Hemoglobin (Hb) 12.4 g/dL (14.0-18.0); O2 Tension (PaO2) 257.5 mmHg (80.0-100.0); Puncture Site ALINE; pH, Arterial 7.41 (7.35-7.45)
[2017-09-27 15:05] LABS: Actual Bicarbonate (HCO3a) 22.5 mEq/L (22-26); CO2 Tension 37.8 mmHg (35.0-45.0); Hematocrit-ABG 36.4 % (42.0-52.0); Hemoglobin (Hb) 12.3 g/dL (14.0-18.0); O2 Tension (PaO2) 422.7 mmHg (80.0-100.0); pH, Arterial 7.39 (7.35-7.45)
[2017-09-27 15:06] LABS: Analyzer IN Cardio OR; Calcium, Ionized 1.2 mmol/L (1.12-1.30); Puncture Site ALINE
[2017-09-27 15:06] LABS: Actual Bicarbonate (HCO3a) 21.2 mEq/L (22-26); Base Excess (BEa) -4.4 mEq/L (0 (+/-) 2.5); CO2 Tension 40.9 mmHg (35.0-45.0); Hematocrit-ABG 35.9 % (42.0-52.0); Hemoglobin (Hb) 12.2 g/dL (14.0-18.0); O2 Tension (PaO2) 407.9 mmHg (80.0-100.0); pH, Arterial 7.33 (7.35-7.45)
[2017-09-27 15:07] LABS: Analyzer IN Cardio OR; Calcium, Ionized 1.2 mmol/L (1.12-1.30); Puncture Site ALINE
[2017-09-27 15:07] LABS: Actual Bicarbonate (HCO3v) 25 mEq/L (22-26); Analyzer IN Cardio OR; Base Excess -1.8 mEq/L (0 (+/- 2.5))
[2017-09-27 15:08] LABS: Actual Bicarbonate (HCO3a) 22.9 mEq/L (22-26); Base Excess (BEa) -2.9 mEq/L (0 (+/-) 2.5); O2 Tension (PaO2) 392.4 mmHg (80.0-100.0); pH, Arterial 7.33 (7.35-7.45)
[2017-09-27 15:08] LABS: Calcium, Ionized 1.07 mmol/L (1.16-1.32); Chloride (ABG LAB) 102 mmol/L (98-106); Hematocrit-VBG 27.7 % (39-50); Hemoglobin (Hb) 9.7 g/dL (13.1-17.2); Potassium - ABG Lab 4.3 mmol/L (3.70-5.30); Sodium 139.9 mmol/L (133-146)
[2017-09-27 15:09] LABS: Analyzer IN Cardio OR; Hematocrit-ABG 29.6 % (42.0-52.0); Hemoglobin (Hb) 9.8 g/dL (14.0-18.0); Puncture Site ALINE
[2017-09-27 15:09] LABS: pH, Arterial 7.33 (7.35-7.45)
[2017-09-27 15:10] LABS: Actual Bicarbonate (HCO3a) 22.6 mEq/L (22-26); Analyzer IN Cardio OR; Base Excess (BEa) -3.3 mEq/L (0 (+/-) 2.5); CO2 Tension 44.2 mmHg (35.0-45.0); Hematocrit-ABG 26.4 % (42.0-52.0); Hemoglobin (Hb) 8.9 g/dL (14.0-18.0); O2 Tension (PaO2) 300.3 mmHg (80.0-100.0); Puncture Site ALINE
[2017-09-27 15:11] LABS: Base Excess (BEa) -5.4 mEq/L (0 (+/-) 2.5); CO2 Tension 55.5 mmHg (35.0-45.0); Hematocrit-ABG 18.1 % (42.0-52.0); O2 Tension (PaO2) 303.1 mmHg (80.0-100.0); pH, Arterial 7.22 (7.35-7.45)
[2017-09-27 15:12] LABS: Analyzer IN Cardio OR; Puncture Site ALINE
[2017-09-27 15:13] LABS: Actual Bicarbonate (HCO3a) 21.1 mEq/L (22-26); Analyzer IN Cardio OR; Base Excess (BEa) -4.8 mEq/L (0 (+/-) 2.5); CO2 Tension 42.8 mmHg (35.0-45.0); Calcium, Ionized 1.2 mmol/L (1.12-1.30); Hematocrit-ABG 23.9 % (42.0-52.0); Hemoglobin (Hb) 8.4 g/dL (14.0-18.0); O2 Tension (PaO2) 367.9 mmHg (80.0-100.0); Puncture Site ALINE; pH, Arterial 7.31 (7.35-7.45)
[2017-09-27 15:14] LABS: Actual Bicarbonate (HCO3a) 21.5 mEq/L (22-26); Base Excess (BEa) -4.4 mEq/L (0 (+/-) 2.5); CO2 Tension 42.3 mmHg (35.0-45.0); Hematocrit-ABG 29.5 % (42.0-52.0); Hemoglobin (Hb) 10.6 g/dL (14.0-18.0); O2 Tension (PaO2) 376.7 mmHg (80.0-100.0); pH, Arterial 7.32 (7.35-7.45)
[2017-09-27 15:15] LABS: Analyzer IN Cardio OR; Calcium, Ionized 1.2 mmol/L (1.12-1.30); Puncture Site ALINE
[2017-10-20 08:45] LABS: Actual Bicarbonate (HCO3a) 21.3 mEq/L (22-26); Base Excess (BEa) -4.1 mEq/L (0 (+/-) 2.5); CO2 Tension 40.1 mmHg (35.0-45.0); O2 Tension (PaO2) 309.8 mmHg (80.0-100.0); pH, Arterial 7.34 (7.35-7.45)
[2017-10-20 08:46] LABS: Analyzer IN Cardio OR; Hemoglobin (Hb) 11.8 g/dL (14.0-18.0); Puncture Site ALINE
== END 2017-09-24 16:14 | disposition home or self-care (01) | DRG 236 ==
LOC: ERS 15:22 → OBSVTOIN 16:27 → 2SW 16:27 → CCU 09-18 11:25 → 2NO 09-21 09:44
PROVIDERS: ADMIT Internal Medicine; ATTEND Internal Medicine
PROC: 02100Z9 Bypass Coronary Artery, One Artery from Left Internal Mammary, Open Approach (ICD-10-PCS; principal; 2017-09-18)
PROC: 0210093 Bypass Coronary Artery, One Artery from Coronary Artery with Autologous Venous Tissue, Open Approach (ICD-10-PCS; 2017-09-18)
PROC: 06BP3ZZ Excision of Right Saphenous Vein, Percutaneous Approach (ICD-10-PCS; 2017-09-18)
PROC: 05H533Z Insertion of Infusion Device into Right Subclavian Vein, Percutaneous Approach (ICD-10-PCS; 2017-09-18)
DX: I21.4 Non-ST elevation (NSTEMI) myocardial infarction (principal); E11.22 Type 2 diabetes mellitus with diabetic chronic kidney disease; N17.9 Acute kidney failure, unspecified; E83.42 Hypomagnesemia; N18.3 Chronic kidney disease, stage 3 (moderate); I50.22 Chronic systolic (congestive) heart failure; I13.0 Hypertensive heart and chronic kidney disease with heart failure and stage 1 through stage 4 chronic kidney disease, or unspecified chronic kidney disease; E87.6 Hypokalemia; E78.5 Hyperlipidemia, unspecified; Z79.82 Long term (current) use of aspirin; Z79.02 Long term (current) use of antithrombotics/antiplatelets; Z95.810 Presence of automatic (implantable) cardiac defibrillator; Z86.73 Personal history of transient ischemic attack (TIA), and cerebral infarction without residual deficits; I25.5 Ischemic cardiomyopathy; I25.119 Atherosclerotic heart disease of native coronary artery with unspecified angina pectoris; Z88.0 Allergy status to penicillin; Z87.891 Personal history of nicotine dependence; I25.2 Old myocardial infarction; R19.7 Diarrhea, unspecified; Z90.49 Acquired absence of other specified parts of digestive tract; Z79.51 Long term (current) use of inhaled steroids; Z79.4 Long term (current) use of insulin; E78.1 Pure hyperglyceridemia
CPT/HCPCS: 36415; 36416; 36430; 71045; 76942; 80048; 80061; 82805; 83036; 83735; 84484; 85025; 85347; 85610; 85730; 86850; 86900; 86901; 93005; 93010; 93458; 93798; 94002; 94003; 94640; 94760; 94799; 99152; 99153; A4216; C1769; J0131; J0171; J0282; J1160; J1250; J1642; J1644; J1815; J1885; J1940; J2001; J2250; J2260; J2270; J2370; J2440; J2704; J2720; J3010; J3370; J3475; J3480; J7050; J7070; J7620; P9016; P9035; P9045; P9059; S0017

== ENCOUNTER 2017-12-17 12:15 | Emergency (ER) | payer MEDICARE, OTHER ==
[2017-12-17 12:58] LABS: #Basophils 0.1 thou/uL (0.0-0.2); #Eosinphils 0.5 thou/uL (0.0-0.7); #Lymphocytes 1.9 thou/uL (1.20-3.40); #Monocytes 0.7 thou/uL (0.11-0.59); #Neutrophils 6.1 thou/uL (1.40-6.50); %Eosinophils 5.2 % (0.0-10.0); %Lymphocytes 20.6 % (21.0-51.0); %Monocytes 7.7 % (0.0-10.0); %Neutrophils 65.5 % (42.0-75.0); Mean Corpuscular HGB CONC 34.9 g/dL (32.0-36.0); Mean Corpuscular Hemoglobin 29.9 pg (27.0-31.0); Mean Corpuscular Volume 85.6 fL (78.0-98.0); Mean Platelet Volume 7.1 fL (7.4-10.4); Platelet Count 303 thou/uL (130-400); RBC Distribution Width 12.7 % (11.5-14.5); Red Blood Cell (RBC) Count 4.02 mill/uL (4.70-6.10); White Blood Cell (WBC) Count 9.3 thou/uL (4.8-10.8)
[2017-12-17 13:20] LABS: Bilirubin Negative (Negative); Blood, Urine Negative (Negative); Clarity CLEAR (Clear); Glucose, Urine (Dipstick) >=1000 mg/dL (Negative); Leukocyte Negative (Negative); Nitrite Negative (Negative); Protein, Urine (Dipstick) Negative (Neg-Trace); Specific Gravity, Urine 1.021 (1.002-1.036); Urobilinogen 0.2 mg/dL (0.2-1.0); pH, Urine 5.5 (5.0-9.0)
[2017-12-17 13:23] LABS: ALT (SGPT) 17 U/L (8-55); AST (SGOT) 16 U/L (5-34); Albumin 4.6 g/dL (3.4-4.8); Alkaline Phosphatase 35 U/L (40-150); Anion Gap 17 mmol/L (10-20); BUN (Urea Nitrogen) 24 mg/dL (8.4-25.7); Bilirubin, Total 0.3 mg/dL (0.2-1.2); Calc. Creatinine Clearance 0 mL/min (70-130); Carbon Dioxide 23 mmol/L (23-31); Chloride 99 mmol/L (98-107); Estimated GFR-MDRD 32; Globulin 3.4 g/dL (2.4-3.5); Glucose 185 mg/dL (80-115); Potassium 3.8 mmol/L (3.5-5.1); Sodium 135 mmol/L (136-145)
== END 2017-12-17 13:35 | disposition home or self-care (01) ==
LOC: ERS 12:15
DX: E11.22 Type 2 diabetes mellitus with diabetic chronic kidney disease (principal); N18.9 Chronic kidney disease, unspecified; I25.10 Atherosclerotic heart disease of native coronary artery without angina pectoris; I50.9 Heart failure, unspecified; I25.2 Old myocardial infarction; E78.00 Pure hypercholesterolemia, unspecified; Z87.891 Personal history of nicotine dependence
CPT/HCPCS: 36415; 80053; 81003; 85025; 99283

== ENCOUNTER 2018-01-04 00:21 | Inpatient (IN) | payer MEDICARE, OTHER ==
[2018-01-04 01:29] LABS: Troponin I 0.253 ng/mL (< 0.028)
--- NOTE | 2018-01-04 02:43 | PDOC.FPRHP ---
Addendum entered and electronically signed by Nancy Dove MD 01/04/18 04:11 : Also ordered CXR due to pt's hx of CHF and SOB. Will f/u with results Original Note: - History of Present Illness Chief Complaint: near syncopal episode History of Present Illness: Patient is a 62 yo M with PMH significant for OK X 2 with 2 vessel CABG in 2017, CAD, HLD, and CHF with EF 20%. He is a transfer from [facility] with elevated troponin after near syncopal episode. The patient described the episode as palpitations feeling like "a door stopper going back and forth." The patient has SOB associated with the episode as well as walking short distances. He notes feeling fatigued, tired, with poor appetite since Wednesday. He presented to [facility] where they interrogated his AICD and the patient had a 6 sec run of VTach. Patient has been stable during his transfer over and while in the ED here. He reports feeling better and no more episodes of Vtach or palpitations. The patient hx of TIA in 2013 and endorses an episode of tingling in his left arm while riding his bike at therapy one week ago. These symptoms resolved shortly after. He is a patient of Dr. Guerra's and he see's him regularly. The patient has been compliant with his medications and attending rehab 2-3X/week. Patient denies chest pain, palpitations, SOB, NVD, or diaphoresis. ED Course: ASA and lasix - Allergies/Adverse Reactions Allergies Allergy/AdvReac Type Severity Reaction Status Date / Time Penicillins Allergy Intermediate Rash Verified 01/04/18 04:41 - Home Medications Medication Instructions Recorded Confirmed Type Esomeprazole Magnesium [NexIUM] 40 mg PO QAM 08/25/13 01/04/18 History Fenofibric Acid (Choline) 135 mg PO HS 08/25/13 01/04/18 History [Fenofibric Acid] Ferrous Sulfate ER [Slow FE] 45 mg PO HS 08/25/13 01/04/18 History Digoxin [Lanoxin] 0.125 mg PO DAILY 11/14/15 01/04/18 History sitaGLIPtin Phosphate [Januvia] 100 mg PO DAILY 03/06/17 01/04/18 History Acetaminophen With Codeine 1 tablet PO Q6HR PRN 09/17/17 01/04/18 History [Tylenol with Codeine #3] Exenatide Microspheres [Bydureon 2 mg SQ Q7D 09/17/17 01/04/18 History Bcise] Aspirin [Aspirin Chewable Tablet] 81 mg PO DAILY tab 09/24/17 01/04/18 Rx Ezetimibe [Zetia] 10 mg PO DAILY tab 09/24/17 01/04/18 Rx Fish Oil 1,000 mg PO BID cap 09/24/17 01/04/18 Rx Niacin [Niaspan] 750 mg PO HS tab 09/24/17 01/04/18 Rx Nitroglycerin [Nitrostat] 0.4 mg SL Q5MIN PRN tab 09/24/17 01/04/18 Rx Pitavastatin Calcium [Livalo] 2 mg PO DAILY tab 09/24/17 01/04/18 Rx Ubidecarenone [Coenzyme Q10] 100 mg PO HS cap 09/24/17 01/04/18 Rx Carvedilol [Coreg] 12.5 mg PO BID 01/04/18 01/04/18 History Cholecalciferol (Vitamin D3) 2,000 unit PO BID 01/04/18 01/04/18 History [Vitamin D3] Furosemide [Lasix] 80 mg PO DAILY 01/04/18 01/04/18 History Potassium Chloride 20 meq PO BID 01/04/18 01/04/18 History Spironolactone [Aldactone] 50 mg PO DAILY 01/04/18 01/04/18 History - History PMHx: OK X 2, CAD, CHF, CAD, HLD, TIA in 08/2013, CKD stage 3 PSHx: cholecystectomy, 2 vessel CABG in 08/2017, 4 stents 2007 FHx: noncontributory Social: former smoker - quit < 10 years ago, denies drug or alcohol use - Review of Systems General: denies: fever/chills, weight/appetite/sleep changes, night sweats Eyes: denies: eye pain, vision changes ENT: denies: nasal congestion, rhinorrhea Respiratory: reports: shortness of breath, exercise intolerance. denies: cough , congestion Cardiovascular: reports: palpitation. denies: chest pain, edema, paroxysmal nocturnal dyspnea Gastrointestinal: denies: nausea, vomiting, diarrhea, constipation, abdominal pain Genitourinary: denies: incontinence, dysuria, polyuria Skin: denies: rashes, lesions Musculoskeletal: denies: pain, tenderness, stiffness Neurological: reports: weakness. denies: numbness, syncope, seizure Psychological: denies: anxiety, depression - Vital signs BP: 117/64 HR: 98-102 RR: 20 Tmax: 98.3 Pox: 97% on RA Wt: 74.84kg - Physical Exam Constitutional: NAD, awake, alert and oriented, well developed HEENT: normocephalic and atraumatic, PERRLA, EOMI, grossly normal vision, grossly normal hearing, MMM Neck: supple -Neck: mild JVD Chest: no-tender to palpation, no lesions Heart: RRR, normal S1/S2, no murmurs/rubs/gallops, pulses present, no edema Lungs: CTAB, no respiratory distress, good air movement, no wheezing, no retractions Abdomen: soft, non-tender Musculoskeletal: normal structure, normal tone Neurological: no focal deficit, CN II-XII intact Skin: no rash/lesions, good turgor Heme/Lymphatic: no unusual bruising or bleeding, no purpura, no petechia Psychiatric: normal mood and affect, good judgment and insight FMR H&P: Results - Labs Result Diagrams: 01/04/18 06:16 01/04/18 06:16 - EKG Interpretation EKG: no EKG changes from previous; posterior fascicular block, no ST elevation, cannot rule out anterior infarct FMR H&P: A/P - Problem List (1) Troponin level elevated Current Visit: No Status: Acute Code(s): R74.8 - ABNORMAL LEVELS OF OTHER SERUM ENZYMES (2) Ventricular tachycardia Current Visit: Yes Status: Acute Code(s): I47.2 - VENTRICULAR TACHYCARDIA (3) S/P CABG (coronary artery bypass graft) Current Visit: No Status: Acute Code(s): Z95.1 - PRESENCE OF AORTOCORONARY BYPASS GRAFT (4) Transient ischemic attack Current Visit: No Status: Acute (5) AICD (automatic cardioverter/defibrillator) present Current Visit: No Status: Chronic Code(s): Z95.810 - PRESENCE OF AUTOMATIC ( IMPLANTABLE) CARDIAC DEFIBRILLATOR (6) CAD (coronary artery disease) Current Visit: No Status: Chronic Code(s): I25.10 - ATHSCL HEART DISEASE OF [place] CORONARY ARTERY W/O ANG PCTRS Qualifiers: Coronary Disease-Associated Artery/Lesion type: [place] artery [place] vs. transplanted heart: [place] heart Associated angina: with unstable angina Qualified Code(s): I25.110 - Atherosclerotic heart disease of [place] coronary artery with unstable angina pectoris (7) Chronic systolic CHF (congestive heart failure) Current Visit: No Status: Chronic Code(s): I50.22 - CHRONIC SYSTOLIC ( CONGESTIVE) HEART FAILURE Comment: EF 25%.AICD in place (8) DM2 (diabetes mellitus, type 2) Current Visit: No Status: Chronic Qualifiers: Diabetes mellitus narcotics investigator insulin use: with narcotics investigator use Diabetes mellitus complication status: without complication Qualified Code(s): E11.9 - Type 2 diabetes mellitus without complications; Z79.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; Z79.4 - senior living (current) use of insulin; Z79.4 - senior living ( current) use of insulin; Z79.4 - senior living (current) use of insulin (9) HLD (hyperlipidemia) Current Visit: No Status: Chronic Code(s): E78.5 - HYPERLIPIDEMIA, UNSPECIFIED Qualifiers: (10) HTN (hypertension) Current Visit: No Status: Chronic Code(s): I10 - ESSENTIAL (PRIMARY) HYPERTENSION Qualifiers: Hypertension type: essential hypertension Qualified Code(s): I10 - Essential (primary) hypertension (11) Hypertriglyceridemia Current Visit: No Status: Chronic Code(s): E78.1 - PURE HYPERGLYCERIDEMIA Comment: On multiple medications and TG levels higher than before - Plan 1. Elevated Troponin - likely 2/2 to ventricular tachycardia - Trop have been stable X2: 0.29 -> 0.25; will trend another time - Will repeat EKG - Dr. Guerra cardiology has been consulted - Continuous VS monitoring - Pt put on HH diet 2. Ventricular tachycardia - See #1 3. S/P CABG - See #1 4. Hx of TIA - stable condition; Will monitor for any change - patient is on anticoagulation 5. AICD - See #1 6. CAD - Will continue current home meds - Appreciate cards recommendations 7. CHF - Echo from August 2017 showed EF 20% - Will continue current home meds - Appreciate cards recs 8. DM - Will continue home meds; hold metformin 9. HLD - Continue home meds - Lipid panel in AM 10. HTN - Continue home meds - current BPs: 117-136/64-96 11. Hypertriglyceridemia - Continue home meds - Lipid panel in the AM 12. FEN - no fluids at this time - CBC and CMP in AM - start on prophylactic lovenox; will give th lovenox if trop trends up Disposition/LOS: DISPO: likely > 2 midnights CODE: FULL Case discussed with Dr. Braden FMR H&P: Upper Level - Pertinent findings GEN: NAD CARDIO/chest: RRR, no MRG. RESP: Lungs CTAB, no wheezing or ronchi Extremities: no edema, pulses strong Neuro: no focal deficits, CN intact PSYCH: A&O x4, thoughts normal - Plan Date/Time: 01/04/18 0240 I, , have evaluated this patient and agree with findings/plan as outlined by record label intern resident. Pertinent changes/additions are listed here. 1 Elevated Troponins: Indeterminate 0.29-->0.25 and likely due to demand from arrhythmia. Chest pain has resolved and his VS are stable. ED physician spoke with Dr Guerra who will see him. If troponins trend upward, will consider therapeutic lovenox. Repeat EKG. 2 Arrythmia: apparently was recorded 2 episodes of Vtach for 6 and <6 seconds. Currently NSR with old EKG changes. Continue home medications and cardiac monitoring. AICD in place. 3 CAD: S/p 2 vessel CABG in August 2017 with residual pericarditis per patient. Unsure about this history, and will plan to defer to cardiology recs for further management. Dual antiplatelet therapy. 4 HFrEF- 20% on recent ECHO. AICD in place. Will continue mediations. 5 T2DM: Continue home medications 6 HLD/hypertriglyceridemia: On multiple medications that we will continue. Cardiology to change as needed. 7 HTN: Controlled on home medications. Monitor. 8 FEN: Heart healthy diet. Replete lytes as needed Attending Addendum - Attending Addendum Date/Time: 01/04/18 0300 I personally evaluated the patient and discussed the management with Dr. Dove/ Taniya. I agree with the History, Examination, Assessment and Plan documented above with any addition or exceptions noted below. Patient with extensive cardiac history and recent 2v CABG in 08/2017 presenting after presyncopal symptoms associated with palpitations. Patient reports that he experienced 2 episodes of NSVT overnight that led to feelings of lightheadedness, tunnel vision, and palpitations. Denies chest pain or shortness of breath. Reports that he typically has good and bad days associated with his ischemic cardiomyopathy and severe systolic CHF. He has been feeling "off" over the last few days. Reports taking all medications as prescribed. Recently saw clinical safety specialist 1 week ago and only change made was recommendation to start Corlanor therapy which the patient has been unable to start due to insurance reasons. Vitals currently stable, HR 100s which patient reports is his subacute baseline. Exam wnl. Labs show indeterminate troponin elevations but labs otherwise non-contributory. His EKG shows chronic changes with HR 107, no major ST segment changes. Patient to be admitted for 1. Likely ventricular tachycardia, nonsustained, symptomatic- reports his AICD did not fire. Cardiology has been consulted. Will need interrogation, and possibly initiation of antiarrhythmic therapy. Currently having occasional PVC on monitor and will need loading medications if it continues. 2. Elevated troponin- possible demand related or ischemic associated with his run of VT. Cardiology as above. Chronic medication for chronic medical problems to be continued. Further mgmt per Cardiology recs and clinical course.
[2018-01-04] MEDS ORDERED: Acetaminophen/Codeine 30-300mg Tablet PO PRN (03:32)
[2018-01-04] MEDS ORDERED: HYDROcodone/Acetaminophen 5/325 mg Tablet PO PRN (03:32)
[2018-01-04] MEDS ORDERED: Nitroglycerin 0.4 MG TAB (25 Tab Bottle) SL PRN (03:32)
[2018-01-04] MEDS ORDERED: Ondansetron ODT 4 MG TAB PO PRN (04:15)
[2018-01-04] MEDS ORDERED: Ondansetron HCl/PF 4 MG/2 ML Vial IVP PRN (04:15)
[2018-01-04] MEDS ORDERED: Acetaminophen 325 MG TAB PO PRN (04:15)
[2018-01-04 04:24] LABS: Troponin I 0.263 ng/mL (< 0.028)
[2018-01-04 04:42] VITALS: BMI 22.4
--- NOTE | 2018-01-04 05:44 | PDOC.FM ---
- Subjective Subjective: Mr Santana is a 62yo male presenting with palpitations and shortness of breath. Reports he has SOB "when there is fluid build up around my heart." He is usually able to walk on the treadmill without SOB but is not able to walk a few feet without SOB now. Endorses 2 episodes of palpitations yesterday but has not had any overnight. Denies chest pain, abdominal pain or nausea. No overnight events. - Objective MAR Reviewed: Yes Vital Signs & Weight: Vital Signs (12 hours) Temp Pulse Resp BP Pulse Ox 01/04/18 04:48 97.8 F 102 H 20 95 01/04/18 04:10 97.8 F 102 H 20 137/77 95 Weight Weight 74.888 kg I&O: 01/02/18 01/03/18 01/04/18 06:59 06:59 06:59 Output Total 700 Balance -700 Result Diagrams: 01/05/18 04:15 01/05/18 04:15 <Gina Santana - Last Filed: 01/05/18 05:37> - Objective Vital Signs & Weight: Weight Weight 74.117 kg I&O: 01/07/18 01/08/18 01/09/18 06:59 06:59 06:59 Intake Total 3270 Output Total 2775 Balance 495 Result Diagrams: 01/05/18 04:15 01/05/18 04:15 <Veronica Win - Last Filed: 01/08/18 17:21> Phys Exam - Physical Examination Constitutional: NAD No bruits <Gina Santana - Last Filed: 01/05/18 05:37> Dx/Plan (2) Troponin level elevated Code(s): R74.8 - ABNORMAL LEVELS OF OTHER SERUM ENZYMES Status: Acute (3) S/P CABG (coronary artery bypass graft) Code(s): Z95.1 - PRESENCE OF AORTOCORONARY BYPASS GRAFT Status: Acute (4) AICD (automatic cardioverter/defibrillator) present Code(s): Z95.810 - PRESENCE OF AUTOMATIC (IMPLANTABLE) CARDIAC DEFIBRILLATOR Status: Chronic (5) CAD (coronary artery disease) Code(s): I25.10 - ATHSCL HEART DISEASE OF [place] CORONARY ARTERY W/O ANG PCTRS Status: Chronic Qualifiers: Coronary Disease-Associated Artery/Lesion type: [place] artery [place] vs. transplanted heart: [place] heart Associated angina: with unstable angina Qualified Code(s): I25.110 - Atherosclerotic heart disease of [place] coronary artery with unstable angina pectoris (6) Chronic systolic CHF (congestive heart failure) Code(s): I50.22 - CHRONIC SYSTOLIC (CONGESTIVE) HEART FAILURE Status: Chronic (7) DM2 (diabetes mellitus, type 2) Status: Chronic Qualifiers: Diabetes mellitus snf insulin use: with diorama model maker use Diabetes mellitus complication status: without complication Qualified Code(s): E11.9 - Type 2 diabetes mellitus without complications; Z79.4 - research engineer (current) use of insulin (8) HLD (hyperlipidemia) Code(s): E78.5 - HYPERLIPIDEMIA, UNSPECIFIED Status: Chronic (9) HTN (hypertension) Code(s): I10 - ESSENTIAL (PRIMARY) HYPERTENSION Status: Chronic Qualifiers: Hypertension type: essential hypertension Qualified Code(s): I10 - Essential (primary) hypertension (10) Hypertriglyceridemia Code(s): E78.1 - PURE HYPERGLYCERIDEMIA Status: Chronic (11) Ischemic cardiomyopathy Code(s): I25.5 - ISCHEMIC CARDIOMYOPATHY Status: Chronic (12) Hx of TIA (transient ischemic attack) and stroke Code(s): Z86.73 - PRSNL HX OF TIA (TIA), AND CEREB INFRC W/O RESID DEFICITS Status: Chronic (14) Ventricular tachycardia Code(s): I47.2 - VENTRICULAR TACHYCARDIA Status: Acute - Plan Plan: Ventricular tachycardia - 2 episodes of Vtach (6 & <6sec) - Has been in NSR - Pt has AICD - Continue home Digoxin for rate control - Mg 2.1, Ph 3.9 Typical Chest Pain - Trop: 0.29-> 0.25 -> 0.263 ->.251 - Elevated Trops likely 2/2 to cardiac demand from ventricular tachycardia - Cardiology consulted (Dr Guerra), apprec recs - Continuous VS monitoring S/p 2 vessel CABG 08/2017 - Continue ASA - Stopped Plavix 6mo ago due to epistaxis - In Cardiac rehab 2-3x week Hx of TIA 2013, stable - Continue to monitor - Stopped Plavix 6mo ago due to epistaxis CAD - Continue home ASA 81mg, Coreg 3.125mg BID, Nitro PRN - Consulted cardiology, apprec recs CHrEF - Echo 08/2017: EF 20% - Pt has AICD - Continue home Lasix 80mg qd, Coreg - Appreciate cards recs - Pt had been on Entresto, BNP expected to be elevated (BNP: 931) DM - Continue home Januvia, Exenatide - Empagliflozin/Metformin held HLD, Hypertriglyceridemia - Continue home Fenofibric acid 135mg, Niacin, Pitavastatin 2mg, Ezetimibe 10mg - Pt bring Pitavastatin from home, do not have it on supply here and pt cannot tolerate Rotuvastatin, Digoxin interacts with Atorvastatin - Triglycerides chronically high, today 641 HTN, stable - Continue to monitor DVT ppx: lovenox; will give therapeutic lovenox if trop trends up Code Status: FULL <Gina Santana - Last Filed: 01/05/18 05:37> Attending Addendum - Attending Addendum Date/Time: 01/04/18 1707 I personally evaluated the patient and discussed the management with Dr. Santana I agree with the History, Examination, Assessment and Plan documented above with any addition or exceptions noted below. 62 yo male with significant cardiac disease is admitted for ventricular tachycardia. No firing of defibrillator. AICD to be interrogated. Cards consulted. Trend labs. Place on tele. Continue home meds. SabrinaMD <Veronica Win - Last Filed: 01/08/18 17:21>
[2018-01-04 06:27] LABS: #Basophils 0.1 thou/uL (0.0-0.2); #Eosinphils 0.5 thou/uL (0.0-0.7); #Lymphocytes 1.7 thou/uL (1.20-3.40); #Monocytes 0.7 thou/uL (0.11-0.59); #Neutrophils 5.1 thou/uL (1.40-6.50); %Basophils 0.8 % (0.0-1.0); %Eosinophils 6.6 % (0.0-10.0); %Lymphocytes 20.7 % (21.0-51.0); %Monocytes 9.1 % (0.0-10.0); %Neutrophils 62.9 % (42.0-75.0); Hemoglobin 11.8 g/dL (14.0-18.0); Mean Corpuscular HGB CONC 35.3 g/dL (32.0-36.0); Mean Corpuscular Hemoglobin 30.4 pg (27.0-31.0); Mean Corpuscular Volume 86.3 fL (78.0-98.0); Mean Platelet Volume 7.2 fL (7.4-10.4); Platelet Count 297 thou/uL (130-400); RBC Distribution Width 12.7 % (11.5-14.5); Red Blood Cell (RBC) Count 3.88 mill/uL (4.70-6.10); White Blood Cell (WBC) Count 8.1 thou/uL (4.8-10.8)
[2018-01-04 06:46] LABS: ALT (SGPT) 16 U/L (8-55); AST (SGOT) 14 U/L (5-34); Albumin 4.6 g/dL (3.4-4.8); Alkaline Phosphatase 37 U/L (40-150); Anion Gap 19 mmol/L (10-20); BUN (Urea Nitrogen) 24 mg/dL (8.4-25.7); Bilirubin, Total 0.3 mg/dL (0.2-1.2); Calc. Creatinine Clearance 43 mL/min (70-130); Calcium 10.9 mg/dL (7.8-10.44); Carbon Dioxide 20 mmol/L (23-31); Cardiac Risk 6.4 (Less than 4.5); Chloride 102 mmol/L (98-107); Cholesterol 173 mg/dl (< 200 Desired); Estimated GFR-MDRD 37; Globulin 3.3 g/dL (2.4-3.5); Glucose 136 mg/dL (80-115); HDL Cholesterol 27 mg/dL (>60 Neg Risk); Phosphorus 3.9 mg/dL (2.3-4.7); Potassium 3.4 mmol/L (3.5-5.1); Protein, Total 7.9 g/dL (5.8-8.1); Sodium 138 mmol/L (136-145); Triglycerides 641 mg/dL (Less than 150)
[2018-01-04 06:56] LABS: Troponin I 0.251 ng/mL (< 0.028)
--- NOTE | 2018-01-04 07:56 | RAD ---
PORTABLE CHEST 1 VIEW: Date: 01/04/18 Time: 0617 hours HISTORY: CHF. FINDINGS: Comparison made with exam of 09/24/17. Left-sided AICD remains in place. Changes of median sternotomy are redemonstrated. The heart size is normal. The aorta is tortuous. The lungs are well expanded without lobar consolidation, pneumothorace s, or pleural effusions. IMPRESSION: No acute process. POS: TERESA
[2018-01-04] MEDS ORDERED: Potassium Chloride 20 MEQ TAB PO SCH (08:00)
[2018-01-04] MEDS ORDERED: Non-Formulary Item 1 EACH (Potassium Chloride [Potassium Chloride] 20 MEQ) PO SCH (09:00)
[2018-01-04] MEDS ORDERED: Sacubitril 24.5 MG/Valsartan 25.5 MG TABLET PO SCH (09:00)
[2018-01-04] MEDS ORDERED: Carvedilol 3.125 MG TAB PO SCH (09:00)
[2018-01-04] MEDS ORDERED: Clopidogrel Bisulfate 75 MG TAB PO SCH (09:00)
[2018-01-04] MEDS ORDERED: Non-Formulary Item 1 EACH (Carvedilol [Coreg] 12.5 MG) PO SCH (09:00)
[2018-01-04] MEDS ORDERED: Furosemide 80 MG TAB PO SCH (09:00)
[2018-01-04] MEDS ORDERED: Non-Formulary Item 1 EACH (Cholecalciferol (Vitamin D3) [Vitamin D3] 2,000 UNIT) PO SCH (09:00)
[2018-01-04] MEDS: Carvedilol 6.25 MG TAB PO SCH ×2 (10:14→20:23)
[2018-01-04] MEDS: Ezetimibe 10 MG TAB PO SCH (10:15)
[2018-01-04] MEDS: Enoxaparin Sodium 40 MG/0.4 ML SYRINGE SC SCH (10:15)
[2018-01-04] MEDS: Digoxin 0.125 MG TAB PO SCH (10:15)
[2018-01-04] MEDS: Furosemide 80 MG TAB PO SCH (10:16)
[2018-01-04] MEDS: Ferrous Sulfate 325 MG TAB PO SCH (10:16)
[2018-01-04] MEDS: Fish Oil 1,000 MG CAP PO SCH ×2 (10:16→20:23)
[2018-01-04] MEDS: Spironolactone 25 MG TAB PO SCH (10:17)
[2018-01-04] MEDS: Potassium Chloride 20 MEQ TAB PO SCH ×2 (10:28→17:51)
[2018-01-04] MEDS ORDERED: Alogliptin 25 MG TAB PO SCH (11:15)
[2018-01-04] MEDS: Ubidecarenone 50 MG CAP PO SCH (20:22)
[2018-01-04] MEDS: Fenofibrate Nanocrystallized 145 MG TAB PO SCH (20:22)
[2018-01-04] MEDS ORDERED: Non-Formulary Item 1 EACH (Fenofibric Acid (Choline) [Fenofibric Acid] 135 MG) PO SCH (21:00)
[2018-01-04] MEDS ORDERED: Atorvastatin Calcium 10 MG TAB PO SCH (21:00)
[2018-01-05 05:35] LABS: #Basophils 0.1 thou/uL (0.0-0.2); #Eosinphils 0.5 thou/uL (0.0-0.7); #Lymphocytes 1.6 thou/uL (1.20-3.40); #Monocytes 0.8 thou/uL (0.11-0.59); #Neutrophils 3.8 thou/uL (1.40-6.50); %Basophils 1.1 % (0.0-1.0); %Eosinophils 7.3 % (0.0-10.0); %Lymphocytes 23.4 % (21.0-51.0); %Monocytes 11.9 % (0.0-10.0); %Neutrophils 56.4 % (42.0-75.0); Hemoglobin 11.5 g/dL (14.0-18.0); Mean Corpuscular HGB CONC 34.7 g/dL (32.0-36.0); Mean Corpuscular Volume 86.4 fL (78.0-98.0); Mean Platelet Volume 7.6 fL (7.4-10.4); Platelet Count 309 thou/uL (130-400); RBC Distribution Width 12.8 % (11.5-14.5); Red Blood Cell (RBC) Count 3.84 mill/uL (4.70-6.10); White Blood Cell (WBC) Count 6.8 thou/uL (4.8-10.8)
[2018-01-05 05:36] LABS: ALT (SGPT) 16 U/L (8-55); AST (SGOT) 13 U/L (5-34); Albumin 4.4 g/dL (3.4-4.8); Alkaline Phosphatase 35 U/L (40-150); Anion Gap 16 mmol/L (10-20); BUN (Urea Nitrogen) 27 mg/dL (8.4-25.7); Bilirubin, Total 0.5 mg/dL (0.2-1.2); Calc. Creatinine Clearance 40 mL/min (70-130); Calcium 10.6 mg/dL (7.8-10.44); Carbon Dioxide 24 mmol/L (23-31); Chloride 101 mmol/L (98-107); Estimated GFR-MDRD 33; Globulin 3.3 g/dL (2.4-3.5); Glucose 139 mg/dL (80-115); Potassium 3.5 mmol/L (3.5-5.1); Protein, Total 7.7 g/dL (5.8-8.1); Sodium 137 mmol/L (136-145)
--- NOTE | 2018-01-05 05:41 | PDOC.FM ---
- Subjective Subjective: No concerns this morning. Pt and awaiting cardiology recs. has not been able to go home to bring in pt's home meds that are not available here. She plans to do so today. Patient denies any palpitations, sob, chest pain or lightheadedness. - Objective MAR Reviewed: Yes Vital Signs & Weight: Vital Signs (12 hours) Temp Pulse Resp BP BP Pulse Ox 01/05/18 04:00 98.1 F 101 H 18 117/66 98 01/04/18 20:23 112/66 01/04/18 20:16 98.2 F 96 16 112/66 94 L Weight Weight 75.296 kg I&O: 01/03/18 01/04/18 01/05/18 06:59 06:59 06:59 Intake Total 1520 Output Total 700 900 Balance -700 620 Result Diagrams: 01/05/18 04:15 01/05/18 04:15 <Gina Santana - Last Filed: 01/05/18 08:32> - Objective Vital Signs & Weight: Weight Weight 74.117 kg Result Diagrams: 01/05/18 04:15 01/05/18 04:15 <Veronica Win - Last Filed: 01/09/18 14:03> Phys Exam - Physical Examination Constitutional: NAD Respiratory: no wheezing, clear to auscultation bilateral Cardiovascular: RRR Musculoskeletal: pulses present Psychiatric: normal affect, A&O x 3 Skin: cap refill <2 seconds <Gina Santana - Last Filed: 01/05/18 08:32> Dx/Plan (2) Troponin level elevated Code(s): R74.8 - ABNORMAL LEVELS OF OTHER SERUM ENZYMES Status: Acute (3) S/P CABG (coronary artery bypass graft) Code(s): Z95.1 - PRESENCE OF AORTOCORONARY BYPASS GRAFT Status: Acute (4) AICD (automatic cardioverter/defibrillator) present Code(s): Z95.810 - PRESENCE OF AUTOMATIC (IMPLANTABLE) CARDIAC DEFIBRILLATOR Status: Chronic (5) CAD (coronary artery disease) Code(s): I25.10 - ATHSCL HEART DISEASE OF [place] CORONARY ARTERY W/O ANG PCTRS Status: Chronic Qualifiers: Coronary Disease-Associated Artery/Lesion type: [place] artery [place] vs. transplanted heart: [place] heart Associated angina: with unstable angina Qualified Code(s): I25.110 - Atherosclerotic heart disease of [place] coronary artery with unstable angina pectoris (6) Chronic systolic CHF (congestive heart failure) Code(s): I50.22 - CHRONIC SYSTOLIC (CONGESTIVE) HEART FAILURE Status: Chronic (7) DM2 (diabetes mellitus, type 2) Status: Chronic Qualifiers: Diabetes mellitus intermediate teacher insulin use: with shelter use Diabetes mellitus complication status: without complication Qualified Code(s): E11.9 - Type 2 diabetes mellitus without complications; Z79.4 - exterminator (current) use of insulin (8) HLD (hyperlipidemia) Code(s): E78.5 - HYPERLIPIDEMIA, UNSPECIFIED Status: Chronic (9) HTN (hypertension) Code(s): I10 - ESSENTIAL (PRIMARY) HYPERTENSION Status: Chronic Qualifiers: Hypertension type: essential hypertension Qualified Code(s): I10 - Essential (primary) hypertension (10) Hypertriglyceridemia Code(s): E78.1 - PURE HYPERGLYCERIDEMIA Status: Chronic (11) Ischemic cardiomyopathy Code(s): I25.5 - ISCHEMIC CARDIOMYOPATHY Status: Chronic (12) Hx of TIA (transient ischemic attack) and stroke Code(s): Z86.73 - PRSNL HX OF TIA (TIA), AND CEREB INFRC W/O RESID DEFICITS Status: Chronic (14) Ventricular tachycardia Code(s): I47.2 - VENTRICULAR TACHYCARDIA Status: Acute - Plan Plan: Ventricular tachycardia - 2 episodes of Vtach (6 & <6sec) prior to admission - Has been in NSR - Pt has AICD - Continue home Digoxin for rate control Typical Chest Pain - Trops stable - Elevated Trops likely 2/2 to cardiac demand from ventricular tachycardia - Cardiology consulted (Dr Guerra) - Continuous VS monitoring S/p 2 vessel CABG 08/2017 - Continue ASA - In Cardiac rehab 2-3x week Hx of TIA 2014, stable - Continue to monitor CAD - Continue home ASA 81mg, Coreg 3.125mg BID, Nitro PRN - Consulted cardiology, apprec recs CHrEF - Echo 08/2017: EF 20% - Pt has AICD - Continue home Lasix 80mg qd, Coreg DM - Continue home Januvia, Exenatide - Empagliflozin/Metformin held HLD, Hypertriglyceridemia - Continue home Fenofibric acid 135mg, Niacin, Pitavastatin 2mg, Ezetimibe 10mg - Triglycerides chronically high, 641 HTN, stable - Continue to monitor DVT ppx: lovenox; will give therapeutic lovenox if trop trends up Code Status: FULL <Gina Santana - Last Filed: 01/05/18 08:32> Attending Addendum - Attending Addendum Date/Time: 01/05/18 1401 I personally evaluated the patient and discussed the management with Dr. Santana I agree with the History, Examination, Assessment and Plan documented above with any addition or exceptions noted below. Patient stable overnight. No events on tele. Cards to see this AM. Continue inpatient management. SabrinaMD <Veronica Win - Last Filed: 01/09/18 14:03>
[2018-01-05] MEDS: Alogliptin 25 MG TAB PO SCH (08:58)
[2018-01-05] MEDS: Potassium Chloride 20 MEQ TAB PO SCH ×2 (08:58→16:58)
[2018-01-05] MEDS: Digoxin 0.125 MG TAB PO SCH (09:00)
[2018-01-05] MEDS: Carvedilol 6.25 MG TAB PO SCH ×2 (09:00→19:49)
[2018-01-05] MEDS: Enoxaparin Sodium 40 MG/0.4 ML SYRINGE SC SCH (09:01)
[2018-01-05] MEDS: Ezetimibe 10 MG TAB PO SCH (09:01)
[2018-01-05] MEDS: Fish Oil 1,000 MG CAP PO SCH ×2 (09:01→19:48)
[2018-01-05] MEDS: Furosemide 80 MG TAB PO SCH (09:01)
[2018-01-05] MEDS: Ferrous Sulfate 325 MG TAB PO SCH (09:01)
[2018-01-05] MEDS: Spironolactone 25 MG TAB PO SCH (09:02)
[2018-01-05] MEDS: Ubidecarenone 50 MG CAP PO SCH (19:48)
[2018-01-05] MEDS: Amiodarone 200 MG TAB PO SCH (19:50)
[2018-01-05] MEDS: Fenofibrate Nanocrystallized 145 MG TAB PO SCH (19:51)
--- NOTE | 2018-01-06 00:18 | CON ---
DATE OF CONSULTATION: 01/05/2018 ELECTROPHYSIOLOGY CONSULTATION REPORT REFERRING PHYSICIAN: Dr. Guerra. I am seeing Mr. 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 His problems are: 1. Nonsustained ventricular tachycardia prompting ER visit and subsequent transfer to our facility. 2. Mildly elevated troponins at 0.29. 3. Chronic systolic congestive heart failure with ischemic cardiomyopathy. A. Prior history of reduced LV in the 20% range. B. Prior myocardial infarctions and three stent placement in the past. C. Myocardial infarction in 08/2017 prompting a left heart catheterization showing proximal LAD and proximal RCA stent was evaluated with LVEF 20%. E. Status post coronary artery bypass graft x2 with MOSQUERA to LAD and SVG to PDA on 09/18/2017. 4. This is dual chamber ICD implantation in 10/2015 with a Medtronic Evera device. 5. Risk factors including type 2 diabetes, hyperlipidemia, hypertension, and hypertriglyceridemia. 6. Remote history of TIA. 7. Chronic kidney disease. ALLERGIES: PENICILLINS. MEDICATIONS AT HOME: Include Nexium, fenofibric acid, iron sulfate, digoxin, sitagliptin phosphate, Tylenol, Bydureon, aspirin, Zetia, fish oil supplements, Niaspan, Nitrostat, Livalo, Coenzyme Q10, Coreg, vitamin D3, furosemide, potassium chloride, and spironolactone. SUBJECTIVE: Mr. Gus Rawls is here due to an episode of severe palpitations, Wednesday night initially went to the [facility], but then transferred to our facility since Dr. Guerra is his supervisor sawing and assembly, who works here. He had dizzy with these episodes, did not last long beyond 6 seconds, was correlated to the ventricular tachycardia episode on the ice interrogation. He had another episode shorter following that and he got resumed his care and went to the ER at that time. Since then he is doing fair. There is no angina, no CHF like symptoms. No palpitations. No neurological deficits. No stroke-like symptoms. REVIEW OF SYSTEMS: Rest of 12-point system is otherwise unremarkable. PAST HISTORY: As above. SOCIAL HISTORY: Patient denies smoking, ETOH or drug abuse. He is , was with him today. FAMILY HISTORY: Not contributory. OBJECTIVE: VITAL SIGNS: Blood pressure is 134/84, heart rate 100, respirations 12. Patient is afebrile. GENERAL: He is alert and oriented man in no apparent distress. NECK: Supple. Jugular veins are not distended. CHEST: Coarse without crackles. CARDIOVASCULAR: Heart sounds are regular to rate and rhythm. No murmur or gallop. ABDOMEN: Benign. Bowel sounds positive. EXTREMITIES: Lower extremities without edema, clubbing or cyanosis. Pulses are adequate. NEUROLOGIC: Patient is nonfocal. MUSCULOSKELETAL: No joint swelling or deformities. SKIN: Without rash. DATABASE: EKGs reviewed revealing sinus rhythm, rate of 107 beats per minute, left posterior fascicular block, nonspecific ST-T changes are seen. Rare PVCs are noted. LABORATORY DATA: Sodium 137, potassium 3.5, BUN is 27, creatinine 2.05. The AST, ALT is 13 and 16. Troponin I 0.251, the previous was at 0.291. BNP is 931 , the at 641, total cholesterol 173. White count 6.8, hemoglobin 11.5, platelet count is 309. The telemetry strips reveal sinus rhythm, copy of an ice interrogation EGM strip does reveal true ventricular tachycardia with rapid rates almost 3 with a cycle length up to 180 milliseconds felt polymorphic appearing rhythm with clear [place] disassociation and then the second episode somewhat shorter in duration. ASSESSMENT AND PLAN: Mr. Gus Rawls is a pleasant 62-year-old man with history of congestive heart failure, nonischemic cardiomyopathy with recurrent myocardial infarctions, prior stents, and recent coronary artery bypass grafting surgery in 08/2017. His left heart catheterization ejection fraction was 20% prior to bypass surgery. He has a chronic ICD in place from 2 years ago , dual chamber which is still functioning adequately. He has been followed by Dr. Guerra in our office. Now he is here with seeming unprovoked (apart form anxiety), recurrent ventricular tachycardia episodes. He was sitting, not experiencing angina or significant dyspnea at that time. Since then, his episodes resolved. There is no change on his medication. He has been taking his metoprolol medication without a fail. PLAN: Our plan at this point: 1. Regarding his nonsustained ventricular tachycardia, it appears to be polymorphic rhythm. The reason for this recurring at this time is unclear. We would like to obtain an ICD interrogation to evaluate the time trend over the last couple of months. 2. Ischemic heart disease would be reasonable to be ruled out. Ischemic evaluation as per Dr. Guerra. 3. Repeat 2D echocardiogram would be also helpful. 4. At this point, maximizing his beta abiodun therapy is a strong consideration. If that is not sufficient, antiarrhythmic medication could be considered, but due to his renal insufficiency, the only reasonable choice would be amiodarone at this time. For now, I have not initiated that yet. 5. Renal insufficiency. Monitor and keep electrolytes in normal range. 6. We will follow with up you. Thank you again for allowing me to participate in the care of this patient. KYLER
--- NOTE | 2018-01-06 03:34 | CON ---
DATE OF CONSULTATION: 01/05/2018 HISTORY OF PRESENT ILLNESS: Gus Rawls is a 62-year-old white male who initially evaluated in . He previously had chest discomfort and a diagnosis of GERD. He underwent treadmill testing 5-6 months prior to that hospital evaluation which was normal. On the morning of 03/24/2008 at [facility] 7:15 a.m., he was deer hunting with his 9-year-old grandson. He is trying to shoot a deer. However, the safety was on the rifle. He took the safety off and gun went off shooting the deer. T he second shot was aimed again at the deer, Mr. Rawls began to have chest pressure. He became very short of breath, diaphoretic. He had paresthesias of his hand and they began to cramp. He denied an y nausea or vomiting. He went to the emergency room in [place], he was found to have blood pressur e of 104/64, pulse of 88. EKG on arrival in [place] was found to have [address] segment elevation in V3 and [address] elevation in V4 and V5, 1 mm in V6. He was given sublingual nitroglycerin x2 a s well as aspirin, intravenous morphine followed by and heparin 5000 unit bolus was given and a heparin drip was started. He was transferred via helicopter to [place]. He was taken directly t o the technical laboratory asst. There was a 95% proximal LAD, 40% mid stenosis. The circumflex had proximal plaque and the right coronary had an 80% mid stenosis. Liberte 4.0 x 24 and 4.0 x 12 mm stents were placed in the LAD. He was placed on Integrilin for another 24 hours and his CK was 4673, MB 166.5, troponin I 810.291. A 2D echocardiography during that admission revealed anteroapical dyskinesis, anteroseptal akinesis w ith ejection fraction of 25%-30%. It was decided, there was left ventricular dysfunction, it would b e best to wait 3-4 weeks before placing a stent in the right coronary artery. He was discharged and then presented again with the day after discharge with a sharp sticking pain in his chest that would last 15-20 seconds, occurring multiple times. Cardiac enzymes were negative. It was felt that his pain was not cardiac in nature. Echo again in 03/2008 revealed ejection fractio n of 25%-30%. On 05/02/2008, he returned to the technical laboratory asst and underwent stenting of the right coronar y artery. There continued to be excellent proximal and mid LAD stent results. There was an 80% mid RCA lesion. Liberte 3.5 x 28 and 4.0 x 16 mm stents were placed in the right coronary artery. The p roximal portion of the 3.5 mm stent was postdilated with a 4-mm balloon up to 4.5 mm. He had some ch est tightness with the procedure, but overall the result was excellent. Bare metal stents were place d due to the size of the vessel as well as questionable compliance in the past with his medications. In late 05/2008, he returned and 2D echocardiography continued to reveal severe left ventricular dysf unction with ejection fraction of 20%-25% with anterior wall and inferior wall akinesis, apical akine sis. He was referred to appliquer and underwent placement of a dual chamber ICD in 07/2008 , his carvedilol dose was gradually increased. In 05/2009, he returned after a syncopal episode while walking in the kitchen at home, passing out an d striking his head on the stove. He called 911. He had been hospitalized in [facility] 2 mo nths previously with Staphylococcal infection. His ICD revealed no specific arrhythmias. Ultimately on that admission, he was found to have infected ICD leads with tricuspid valve vegetation and methi cillin-sensitive Staphylococcus aureus bacteremia. His device was removed and he was transferred to LTAC for antibiotic therapy and monitoring. He did have a dual chamber ICD placed on 07/15/2009. After that, he did fairly well. He had a Lexiscan Cardiolite test performed in 02/2010. He had a la rge fixed defect involving the [id number] anterior wall, distal inferior wall apex, distal septal, and distal lateral mathis, but no reversible ischemia. Echo in 02/2010 revealed an ejection fraction of 20%-25% with inferior and posterior wall akinesis and akinetic apex. Mitral valve inflow pattern revealed diastolic dysfunction. He continued to do well over the next 2-3 years, only complaining of fatigue, but no chest discomfort . He then was admitted in 07/2013, complained of increased upper abdominal pain. [facility] and was found to have cholelithiasis and acute cholecystitis. He then underwent laparosc opic cholecystectomy without difficult. Later in 08/2013, he was admitted with transient ischemic at [facility]. He was placed on Plavix 75 daily. In 10/2015, his ICD was elective replacement indicator and this was changed out. In 02/2017, he presented with chest discomfort and underwent Cardiolite testin g, which revealed an old infarction with large area of scar in the anterior wall septum and apex, no evidence of reversible ischemia. He then presented 09/17/2017 with a non-STEMI. He initially went to the hospital in [place]. Tropon in levels were elevated given Lovenox, but he continued to have chest burning. He underwent cardiac catheterization by Dr. Robison in my absence and was found to have in-stent restenosis in the proximal LAD and the mid LAD stents. This is approximately 90%. The circumflex was normal. The right coron zonia artery had a 90% in-stent restenosis. He then underwent CABG on emergent basis. This was CABG x 2 with MOSQUERA to the LAD and reverse greater saphenous vein from the innominate artery to the right pos terior descending. At the time of surgery, he had extensive intrapericardial adhesions consistent wi th previous pericarditis and extensive calcification of the ascending aorta, requiring the saphenous vein graft to be bypassed all of the innominate artery to graft his right PDA. Since surgery has been followed very closely in the office multiple times with gradual increase in hi s carvedilol. He continued to have shortness of breath with minimal activity. He was last seen in he office on 12/27/2017 and Corlanor 5 mg b.i.d. was added due to heart rate of 110 per minute at [facility] and systolic pressure of 109. However, he has been unable to get the Corlanor filled. He now has been admitted on 01/04/2018. On 01/03/2018, he had 2 episodes where he felt as if he woul d pass out. His heart beating very rapidly and his vision grew dark. He never received a shock from his device. He went to the hospital in [place] and his device was interrogated and 6 second r un of ventricular tachycardia. He was then transferred here for further evaluation. He has not had any recurrence since being here. He denies any chest discomfort. He continues to have dyspnea on ex ertion. PAST MEDICAL HISTORY: Hyperlipidemia, former smoker, place a bare metal stent in the right coronary artery and in the LAD in 02/2008 for anterior STEMI, chronic back pain. HOME MEDICATIONS: Include aspirin 81 daily, carvedilol 12.5 mg b.i.d., digoxin 0.125 daily, Nexium 4 0 q.a.m., Zetia 10 daily, fenofibric acid 135 mg at bedtime, iron 45 at bedtime, fish oil 1000 mg b.i .d., furosemide 80 mg daily, Niaspan 750 at bedtime, nitroglycerin p.r.n. Livalo 2 mg daily, potassiu m chloride 20 mEq daily, Januvia 100 mg daily, Aldactone 50 daily, CoQ10 of 100 mg at bedtime. ALLERGIES: PENICILLIN. OPERATIONS: Laparoscopic cholecystectomy, CABG x2 on an emergent basis in 08/2017, stent placement i n 2007. FAMILY HISTORY: Negative for coronary artery disease. SOCIAL HISTORY: Smoked 1-1/2 packs per day, but stopped at the time of myocardial infarction in 2007 . He does not drink alcohol. He lives in [place]. REVIEW OF SYSTEMS: Twelve-point review of systems otherwise unremarkable. PHYSICAL EXAMINATION: VITAL SIGNS: Blood pressure of 116/66, pulse of 90. HEENT: PERRL. NECK: Supple. CHEST: Clear. CARDIAC: S1 and S2 are normal, without any S3, S4 or murmurs. ABDOMEN: Normal bowel sounds without tenderness, organomegaly. EXTREMITIES: Revealed no clubbing, cyanosis, or edema. NEUROLOGIC: Grossly intact. SKIN: Warm and dry. LABORATORY DATA: EKG revealed normal sinus rhythm with old anterior infarction. Interrogation of mo s ICD revealed a 6-second episode of polymorphic ventricular tachycardia. Hemoglobin 11.5, hematocri t 33.2, white count 6800, platelets 309,000. Sodium 137, potassium 3.5 (potassium was 3.4 at the albaro e of admission), chloride 101, carbon dioxide 24, BUN 27, creatinine 2.05, glucose 139. BNP 931.0. Cholesterol 173, triglycerides 641, HDL 27, LDL unable to be calculated. Troponin I 0.251 and 0.263. IMPRESSION: 1. Polymorphic ventricular tachycardia with near syncope. 2. Status post coronary artery bypass graft x2 in 08/2017. 3. Dual chamber ICD. He has had problems with methicillin-sensitive Staphylococcus aureus infection with ICD necessitating removal in the past. 4. Hypertension. 5. Hyperlipidemia. 6. Diabetes. 7. Former smoker. PLAN: The patient presents with a very complex problem. His carvedilol will be gradually increased, feel that he should be placed on amiodarone to try to suppress his ventricular arrhythmias. He has not had any chest discomfort. I will continue to follow the patient with you.
--- NOTE | 2018-01-06 06:11 | PDOC.FM ---
- Subjective Subjective: Mr Weber is doing well this morning. Denies chest pain or palpitations. No overnight events. No concerns at this time. - Objective MAR Reviewed: Yes Vital Signs & Weight: Vital Signs (12 hours) Temp Pulse Resp BP BP BP Pulse Ox 01/06/18 04:00 98.1 F 95 14 111/66 98 01/06/18 00:00 98.5 F 97 16 111/65 96 01/05/18 19:49 116/66 01/05/18 19:46 98.5 F 97 16 116/66 96 Weight Weight 75.296 kg I&O: 01/04/18 01/05/18 01/06/18 06:59 06:59 06:59 Intake Total 2240 Output Total 700 1850 Balance -700 390 Result Diagrams: 01/05/18 04:15 01/05/18 04:15 <Gina Santana - Last Filed: 01/06/18 08:29> - Objective Vital Signs & Weight: Weight Weight 74.117 kg Result Diagrams: 01/05/18 04:15 01/05/18 04:15 <Veronica Win - Last Filed: 01/09/18 14:30> Phys Exam - Physical Examination Constitutional: NAD Respiratory: clear to auscultation bilateral Cardiovascular: RRR Musculoskeletal: pulses present Psychiatric: normal affect, A&O x 3 Skin: cap refill <2 seconds <Gina Santana - Last Filed: 01/06/18 08:29> Dx/Plan (1) Nonsustained ventricular tachycardia Code(s): I47.2 - VENTRICULAR TACHYCARDIA Status: Acute (2) Troponin level elevated Code(s): R74.8 - ABNORMAL LEVELS OF OTHER SERUM ENZYMES Status: Acute (3) S/P CABG (coronary artery bypass graft) Code(s): Z95.1 - PRESENCE OF AORTOCORONARY BYPASS GRAFT Status: Acute (4) AICD (automatic cardioverter/defibrillator) present Code(s): Z95.810 - PRESENCE OF AUTOMATIC (IMPLANTABLE) CARDIAC DEFIBRILLATOR Status: Chronic (5) CAD (coronary artery disease) Code(s): I25.10 - ATHSCL HEART DISEASE OF [place] CORONARY ARTERY W/O ANG PCTRS Status: Chronic Qualifiers: Coronary Disease-Associated Artery/Lesion type: [place] artery [place] vs. transplanted heart: [place] heart Associated angina: with unstable angina Qualified Code(s): I25.110 - Atherosclerotic heart disease of [place] coronary artery with unstable angina pectoris (6) Chronic systolic CHF (congestive heart failure) Code(s): I50.22 - CHRONIC SYSTOLIC (CONGESTIVE) HEART FAILURE Status: Chronic (7) DM2 (diabetes mellitus, type 2) Status: Chronic Qualifiers: Diabetes mellitus terminal superintendent insulin use: with skilled nursing use Diabetes mellitus complication status: without complication Qualified Code(s): E11.9 - Type 2 diabetes mellitus without complications; Z79.4 - detention (current) use of insulin (8) HLD (hyperlipidemia) Code(s): E78.5 - HYPERLIPIDEMIA, UNSPECIFIED Status: Chronic (9) HTN (hypertension) Code(s): I10 - ESSENTIAL (PRIMARY) HYPERTENSION Status: Chronic Qualifiers: Hypertension type: essential hypertension Qualified Code(s): I10 - Essential (primary) hypertension (10) Hypertriglyceridemia Code(s): E78.1 - PURE HYPERGLYCERIDEMIA Status: Chronic (11) Ischemic cardiomyopathy Code(s): I25.5 - ISCHEMIC CARDIOMYOPATHY Status: Chronic (12) Hx of TIA (transient ischemic attack) and stroke Code(s): Z86.73 - PRSNL HX OF TIA (TIA), AND CEREB INFRC W/O RESID DEFICITS Status: Chronic - Plan Plan: Nonsustained Polymorphic Ventricular tachycardia - 2 episodes of Vtach (6 & <6sec) prior to admission - Has been in NSR - Pt has AICD - Continue home Digoxin 0.125 for rate control - Plan to gradually increase Coreg - Cardiology (Dr Guerra), EP (Dr Parkinson) following - AICD interrogation - Echo today Typical Chest Pain, resolved - Trops stable - Elevated Trops likely 2/2 to cardiac demand from ventricular tachycardia - Cardiology (Dr Guerra) and EP (Dr Parkinson) consulted, apprec recs - Continuous VS monitoring S/p 2 vessel CABG 08/2017 - Continue ASA - In Cardiac rehab 2-3x week Hx of TIA 2013, stable - Continue to monitor CAD - Continue home ASA 81mg, Coreg 3.125mg TID, Nitro PRN - Consulted cardiology, apprec recs - Plan to gradually increase Coreg CHrEF - Echo 08/2017: EF 20% - Pt has AICD - Continue home Lasix 80mg qd, Coreg 3.125mg TID, Aldactone 50mg - Plan to gradually increase Coreg DM - Continue home Januvia - Empagliflozin/Metformin held HLD, Hypertriglyceridemia - Continue home Fenofibric acid 135mg, Niacin, Pitavastatin 2mg, Ezetimibe 10mg , fish oil - Triglycerides chronically high, 641 HTN, stable - Continue to monitor GERD - Continue Pantoprazole 40mg DVT ppx: lovenox Code Status: FULL <Gina Santana - Last Filed: 01/06/18 08:29> Attending Addendum - Attending Addendum Date/Time: 01/06/18 [id number] I personally evaluated the patient and discussed the management with Dr. Santana I agree with the History, Examination, Assessment and Plan documented above with any addition or exceptions noted below. Doing well. No acute events per patient and tele monitoring. Cards and EP following. Dispo pending specialist evaluation. SabrinaMD <Veronica Win - Last Filed: 01/09/18 14:30>
[2018-01-06] MEDS: Fish Oil 1,000 MG CAP PO SCH ×2 (08:53→20:52)
[2018-01-06] MEDS: Enoxaparin Sodium 40 MG/0.4 ML SYRINGE SC SCH (08:53)
[2018-01-06] MEDS: Spironolactone 25 MG TAB PO SCH (08:54)
[2018-01-06] MEDS: Carvedilol 6.25 MG TAB PO SCH ×3 (08:54→20:52)
[2018-01-06] MEDS: Furosemide 80 MG TAB PO SCH (08:54)
[2018-01-06] MEDS: Amiodarone 200 MG TAB PO SCH ×3 (08:54→20:51)
[2018-01-06] MEDS: Ezetimibe 10 MG TAB PO SCH (08:54)
[2018-01-06] MEDS: Potassium Chloride 20 MEQ TAB PO SCH ×2 (08:54→16:49)
[2018-01-06] MEDS: Ferrous Sulfate 325 MG TAB PO SCH (08:55)
[2018-01-06] MEDS: Digoxin 0.125 MG TAB PO SCH (08:57)
[2018-01-06] MEDS: Alogliptin 25 MG TAB PO SCH (09:04)
--- NOTE | 2018-01-06 15:40 | PDOC.CTH ---
Cardiology Progress Note - Subjective EP progress note: Patient seen and evaluated. No new cardiac concerns or complaints today. Denies heart racing, palpitations, chest pain/pressure, dizziness, or passing out. No stroke like symptoms. - Objective Vital Signs Temp Pulse Resp BP BP Pulse Ox 01/06/18 14:59 97.6 F 94 16 114/60 96 01/06/18 11:52 97.5 F L 87 14 111/58 L 97 01/06/18 08:57 64 01/06/18 07:54 97.8 F 64 14 115/66 98 01/06/18 04:00 98.1 F 95 14 111/66 98 Weight 163 lb 8 oz 01/05/18 01/06/18 01/07/18 06:59 06:59 06:59 Intake Total 2240 960 1760 Output Total 0940 604 6626 Balance 390 410 410 - Physical Examination General/Neuro: alert & oriented x3, NAD Neck: carotid US brisk, no JVD present Lungs: CTA, unlabored respirations Heart: PMI normal, RRR Abdomen: no HSM, NT/ND, soft - Telemetry Telemetry Rhythm: NSR - Labs Result Diagrams: 01/05/18 04:15 01/05/18 04:15 Troponin/CKMB Troponin I 0.251 ng/mL (< 0.028) H 01/04/18 06:16 - Assessment/Plan 1. Non sustained ventricular tachycardia, appears polymorphic. Unclear etiology , possibly ischemic. Amiodarone started by cardiology and no further NSVT episodes seen on tele. 2. Dual chamber ICD. Normal functioning. interrogation showed minimal and brief NSVT episodes. 3. Renal insufficiency 4. CHF and ICM, repeat echo pending, ischemic workup being considered by Dr. Guerra
[2018-01-06] MEDS: Fenofibrate Nanocrystallized 145 MG TAB PO SCH (20:53)
[2018-01-06] MEDS: Ubidecarenone 50 MG CAP PO SCH (20:54)
[2018-01-06] MEDS ORDERED: PITAVASTATIN 2 MG PO SCH (21:00)
[2018-01-06] MEDS ORDERED: SITAGLIPTIN PHOS 100 MG PO SCH (21:00)
--- NOTE | 2018-01-07 05:36 | PDOC.FM ---
- Subjective Subjective: Echo being preformed this AM. No complaints. Reports tolerating medication adjustments well with no side effects. Denies heart palpitations, chest pain or shortness of breath. No overnight events - Objective MAR Reviewed: Yes Vital Signs & Weight: Vital Signs (12 hours) Temp Pulse Resp BP BP Pulse Ox 01/07/18 03:15 98.1 F 89 18 107/65 93 L 01/06/18 20:52 107/62 01/06/18 19:55 98.8 F 88 20 107/62 94 L Weight Weight 74.117 kg I&O: 01/05/18 01/06/18 01/07/18 06:59 06:59 06:59 Intake Total 2240 960 3270 Output Total 6767 947 3528 Balance 390 410 495 Result Diagrams: 01/05/18 04:15 01/05/18 04:15 Phys Exam - Physical Examination Constitutional: NAD Respiratory: clear to auscultation bilateral Cardiovascular: RRR Psychiatric: normal affect, A&O x 3 Dx/Plan (1) Nonsustained ventricular tachycardia Code(s): I47.2 - VENTRICULAR TACHYCARDIA Status: Acute (2) Troponin level elevated Code(s): R74.8 - ABNORMAL LEVELS OF OTHER SERUM ENZYMES Status: Acute (3) S/P CABG (coronary artery bypass graft) Code(s): Z95.1 - PRESENCE OF AORTOCORONARY BYPASS GRAFT Status: Acute (4) AICD (automatic cardioverter/defibrillator) present Code(s): Z95.810 - PRESENCE OF AUTOMATIC (IMPLANTABLE) CARDIAC DEFIBRILLATOR Status: Chronic (5) CAD (coronary artery disease) Code(s): I25.10 - ATHSCL HEART DISEASE OF [place] CORONARY ARTERY W/O ANG PCTRS Status: Chronic Qualifiers: Coronary Disease-Associated Artery/Lesion type: [place] artery [place] vs. transplanted heart: [place] heart Associated angina: with unstable angina Qualified Code(s): I25.110 - Atherosclerotic heart disease of [place] coronary artery with unstable angina pectoris (6) Chronic systolic CHF (congestive heart failure) Code(s): I50.22 - CHRONIC SYSTOLIC (CONGESTIVE) HEART FAILURE Status: Chronic (7) DM2 (diabetes mellitus, type 2) Status: Chronic Qualifiers: Diabetes mellitus chcf insulin use: with chcf use Diabetes mellitus complication status: without complication Qualified Code(s): E11.9 - Type 2 diabetes mellitus without complications; Z79.4 - moth exterminator (current) use of insulin (8) HLD (hyperlipidemia) Code(s): E78.5 - HYPERLIPIDEMIA, UNSPECIFIED Status: Chronic Qualifiers: (9) HTN (hypertension) Code(s): I10 - ESSENTIAL (PRIMARY) HYPERTENSION Status: Chronic Qualifiers: Hypertension type: essential hypertension Qualified Code(s): I10 - Essential (primary) hypertension (10) Hypertriglyceridemia Code(s): E78.1 - PURE HYPERGLYCERIDEMIA Status: Chronic (11) Ischemic cardiomyopathy Code(s): I25.5 - ISCHEMIC CARDIOMYOPATHY Status: Chronic (12) Hx of TIA (transient ischemic attack) and stroke Code(s): Z86.73 - PRSNL HX OF TIA (TIA), AND CEREB INFRC W/O RESID DEFICITS Status: Chronic (13) Renal insufficiency Status: Chronic - Plan Plan: Nonsustained Polymorphic Ventricular tachycardia - 2 episodes of Vtach (6 & <6sec) prior to admission - Has been in NSR - Pt has AICD - Continue home Digoxin 0.125 for rate control - Continue Amiodarone - Plan to gradually increase Coreg - Cardiology (Dr Guerra), EP (Dr Parkinson) following - Echo interpretation pending Typical Chest Pain, resolved - Trops stable - Elevated Trops likely 2/2 to cardiac demand from ventricular tachycardia - Cardiology (Dr Guerra) and EP (Dr Parkinson) consulted, apprec recs - Continuous VS monitoring S/p 2 vessel CABG 08/2017 - Continue ASA - In Cardiac rehab 2-3x week Hx of TIA 2013, stable - Continue to monitor CAD - Continue home ASA 81mg, Coreg 12.5mg TID, Nitro PRN - Consulted cardiology, apprec recs - Plan to gradually increase Coreg CHrEF - Echo 08/2017: EF 20% - Pt has AICD - Continue home Lasix 80mg qd, Coreg 12.5mg TID, Aldactone 50mg - Plan to gradually increase Coreg DM - Continue home Januvia - Empagliflozin/Metformin held HLD, Hypertriglyceridemia - Continue home Fenofibric acid 135mg, Niacin, Pitavastatin 2mg, Ezetimibe 10mg , fish oil - Triglycerides chronically high, 641 HTN, stable - Continue to monitor GERD - Continue Pantoprazole 40mg DVT ppx: lovenox Code Status: FULL
[2018-01-07] MEDS ORDERED: Exenatide Microspheres [Bydureon Bcise] 2 MG SC SCH (09:00)
[2018-01-07] MEDS ORDERED: SITAGLIPTIN PHOS 100 MG PO SCH (09:00)
[2018-01-07] MEDS: Spironolactone 25 MG TAB PO SCH (09:13)
[2018-01-07] MEDS: Amiodarone 200 MG TAB PO SCH ×2 (09:14→15:45)
[2018-01-07] MEDS: Potassium Chloride 20 MEQ TAB PO SCH (09:14)
[2018-01-07] MEDS: Carvedilol 6.25 MG TAB PO SCH ×2 (09:14→15:45)
[2018-01-07] MEDS: Ferrous Sulfate 325 MG TAB PO SCH (09:14)
[2018-01-07] MEDS: Ezetimibe 10 MG TAB PO SCH (09:15)
[2018-01-07] MEDS: Digoxin 0.125 MG TAB PO SCH (09:15)
[2018-01-07] MEDS: Enoxaparin Sodium 40 MG/0.4 ML SYRINGE SC SCH (09:15)
[2018-01-07] MEDS: Furosemide 80 MG TAB PO SCH (09:15)
[2018-01-07] MEDS: Fish Oil 1,000 MG CAP PO SCH (09:16)
--- NOTE | 2018-01-07 13:11 | PDOC.CTH ---
Cardiology Progress Note - Subjective EP progress note: Patient seen and evaluated. No new cardiac concerns or complaints today. Denies heart racing, palpitations, chest pain/pressure, dizziness, or passing out. No stroke like symptoms. Feel he is tolerating Amiodarone well. - Objective Vital Signs Temp Pulse Pulse Pulse Resp BP BP 01/07/18 11:37 97.6 F 96 18 01/07/18 11:26 92 89 127/71 116/63 01/07/18 08:00 97.7 F 81 20 01/07/18 03:15 98.1 F 89 18 BP Pulse Ox Pulse Ox Pulse Ox 01/07/18 11:37 127/71 01/07/18 11:26 96 96 01/07/18 08:00 124/75 98 01/07/18 03:15 107/65 93 L Weight 163 lb 6.4 oz 01/06/18 01/07/18 01/08/18 06:59 06:59 06:59 Intake Total 960 3270 Output Total 550 2775 Balance 410 495 - Physical Examination General/Neuro: alert & oriented x3, NAD Neck: carotid US brisk, no JVD present Lungs: CTA, unlabored respirations Heart: PMI normal, RRR Abdomen: no HSM, NT/ND - Telemetry Telemetry Rhythm: NSR - Labs Result Diagrams: 01/05/18 04:15 01/05/18 04:15 Troponin/CKMB Troponin I 0.251 ng/mL (< 0.028) H 01/04/18 06:16 - Assessment/Plan 1. Non sustained ventricular tachycardia, appears polymorphic. Unclear etiology , possibly ischemic. Amiodarone started/ managed by Dr Guerra. No further NSVT episodes seen on tele. 2. Dual chamber ICD. Normal functioning. interrogation showed minimal and brief NSVT episodes. 3. Renal insufficiency 4. CHF and ICM, repeat echo pending from this AM
[2018-01-07 15:46] VITALS: BP 110/62; TEMP 98.2
--- NOTE | 2018-01-07 23:53 | DIS-2 ---
DATE OF ADMISSION: 01/04/2018 DATE OF DISCHARGE: 01/07/2018 RESIDENT: Gina Santana, PGY1. ADMITTING ATTENDING: Jairo Braden MD DISCHARGE ATTENDING: Zaid Serrano MD CONSULTATIONS: 1. Cardiology (Dr. Guerra). 2. Electrophysiology, (Dr. Parkinson). PROCEDURES: 1. Echocardiogram: LV function severely depressed. EF 20-25%. Akinesis of apex wall, anteroseptal wall. Defibrillator wire in RV. LA mild dilation. Moderate MR. Aortic valve sclerosis. mild TR. PRIMARY DIAGNOSIS: Polymorphic nonsustained ventricular tachycardia. SECONDARY DIAGNOSES: 1. Troponin elevated. 2. Status post coronary artery bypass graft, 2018. 3. AICD. 4. Coronary artery disease. 5. Chronic systolic congestive heart failure with reduced ejection fraction. 6. Type 2 diabetes. 7. Hyperlipidemia. 8. Hypertension. 9. Hypertriglyceridemia. 10. Ischemic cardiomyopathy. 11. History of transient ischemic attack. 12. Renal insufficiency. DISCHARGE MEDICATIONS: 1. Amiodarone 400 mg t.i.d. 2. Aspirin 81 mg daily. 3. Carvedilol 12.5 mg t.i.d. with plan to titrate up as tolerated. 4. Vitamin D3 2000 units t.i.d. 5. Digoxin 0.125 mg daily. 6. Nexium 40 mg daily. 7. Zetia 10 mg daily. 8. Fenofibric acid 135 mg at bedtime. 9. Ferrous sulfate 45 mg at bedtime. 10. Fish oil 1000 mg b.i.d. 11. Lasix 80 mg daily. 12. Niacin 750 mg at bedtime. 13. Nitroglycerin 0.4 sublingual every 5 minutes p.r.n. 14. Aldactone 25 mg daily. 15. Coenzyme Q 100 mg at bedtime. 16. Pitavastatin 2 mg daily. 17. Januvia 100 mg. 18. Potassium chloride 20 mEq b.i.d. 19. Exenatide microspheres 2 mg subcutaneous q.7 days. HISTORY OF PRESENT ILLNESS AND HOSPITAL COURSE: Mr. Rawls is a 62-year-old male with an extensive past medical history of heart disease presenting with polymorphic nonsustained V-tach. He has a history of episodes of V-tach. He reports on past AICD interrogation, he has been shocked twice while sleeping, this was years ago. He is able to feel when he goes into Vtach. Episodes usually quickly resolve and he has only mild symptoms of palpitations. The day prior to admission, his symptoms were severe and lasted longer, he felt strong palpitations and presyncope. He follows with Dr. Guerra (cardiology) outpatient every 2 weeks. He has been unable to tolerate blood pressure medications, which is why he was taken off Entresto. He has also not been able to tolerate increasing his dose of beta abiodun due to hypotension in the past. EP was consulted but did not feel surgery was warranted. The plan for his nonsustained V-tach was to start Amiodarone and gradually increase his Coreg. He has tolerated the medication changes thus far. He is receiving cardiac rehab 2-3 times a week outpatient and plans to continue this. For his chronic conditions of diabetes, hyperlipidemia, hypertriglyceridemia, hypertension, GERD, and CAD are all stable with his home medications. DISPOSITION: Stable. DISCHARGE INSTRUCTIONS: 1. Home. 2. Diet: Heart healthy diabetic diet. 3. Activity: As tolerated. 4. Follow up with Dr. Guerra in clinic within 1 week. 5. PCP within 1 week. KYLER
--- NOTE | 2018-01-14 17:43 | PQF ---
KTDIMITRY GUARDADO SALIM [id number] CLINICAL DOCUMENTATION CLARIFICATION FORM: POST DISCHARGE Please exercise your independent, professional judgment in responding to the clarification form. Clinical indicators are provided on the bottom of this form for your review Please check appropriate box(s) to clarify if the following diagnosis has been ruled in or ruled out: NSTEMI (CDI/Coding list diagnosis here) [ ] Ruled in diagnosis [ ] Continue to treat [ ] Resolved [ ] Ruled out diagnosis [ ] Cannot rule out diagnosis [ ] Other diagnosis [ x ] Unable to determine In addition, please specify: Present on Admission (POA): [ ] Yes [ ] No [ x] Unable to determine For continuity of documentation, please document condition throughout progress notes and discharge summary. Thank You. CLINICAL INDICATORS - SIGNS / SYMPTOMS / LABS NSTEMI documented on Emergency Services Department Transitional Admission orders 01/04/2018 troponin .253, .263, .251 01/04/2018 - Laboratory Discharge Summary documents elevated troponin 01/07/2018 Elevated troponin likely 2/2 to ventricular tachycardia RISK FACTORS CHF, CAD, history of ME, ventricular tachycardia - HP 01/04/2018 TREATMENTS EKG, Continuous vitals sign monitoring, HH diet (This form is maintained as a part of the permanent medical record) 2014 [employer] All Rights Reserved Glenda Warren, CCS, DIRECTOR HEALTH, [facility] [email or web address]
== END 2018-01-07 17:55 | disposition home or self-care (01) | DRG 309 ==
LOC: ERS 00:21 → 2SW 02:09 → 2NO 18:58
PROVIDERS: ADMIT Student in an Organized Health Care Education/Training Program; ATTEND Student in an Organized Health Care Education/Training Program
DX: I47.2 Ventricular tachycardia (principal); I50.22 Chronic systolic (congestive) heart failure; I13.0 Hypertensive heart and chronic kidney disease with heart failure and stage 1 through stage 4 chronic kidney disease, or unspecified chronic kidney disease; N18.3 Chronic kidney disease, stage 3 (moderate); I25.10 Atherosclerotic heart disease of native coronary artery without angina pectoris; E78.5 Hyperlipidemia, unspecified; E11.22 Type 2 diabetes mellitus with diabetic chronic kidney disease; I25.5 Ischemic cardiomyopathy; E78.1 Pure hyperglyceridemia; K21.9 Gastro-esophageal reflux disease without esophagitis; I08.3 Combined rheumatic disorders of mitral, aortic and tricuspid valves; N28.9 Disorder of kidney and ureter, unspecified; R74.8 Abnormal levels of other serum enzymes; Z95.810 Presence of automatic (implantable) cardiac defibrillator; Z90.49 Acquired absence of other specified parts of digestive tract; Z95.1 Presence of aortocoronary bypass graft; Z88.0 Allergy status to penicillin; Z87.891 Personal history of nicotine dependence; Z86.73 Personal history of transient ischemic attack (TIA), and cerebral infarction without residual deficits; Z95.5 Presence of coronary angioplasty implant and graft; I25.2 Old myocardial infarction
CPT/HCPCS: 36415; 36416; 71045; 80053; 80061; 83735; 83880; 84100; 84484; 85025; 93005; 93010; 93306; 93798; 94760; A4216; J1650

== ENCOUNTER 2018-06-08 18:47 | Observation (INO) | payer MEDICARE, OTHER ==
[2018-06-08 19:33] LABS: #Basophils 0.1 thou/uL (0.0-0.2); #Eosinphils 0.3 thou/uL (0.0-0.7); #Lymphocytes 1.2 thou/uL (1.20-3.40); #Monocytes 0.6 thou/uL (0.11-0.59); #Neutrophils 5.7 thou/uL (1.40-6.50); %Basophils 0.8 % (0.0-1.0); %Eosinophils 3.3 % (0.0-10.0); %Lymphocytes 15.8 % (21.0-51.0); %Monocytes 7.9 % (0.0-10.0); %Neutrophils 72.2 % (42.0-75.0); Hemoglobin 12.7 g/dL (14.0-18.0); Mean Corpuscular HGB CONC 33.2 g/dL (32.0-36.0); Mean Corpuscular Hemoglobin 29.8 pg (27.0-31.0); Mean Corpuscular Volume 89.7 fL (78.0-98.0); Mean Platelet Volume 8.4 fL (7.4-10.4); Platelet Count 367 thou/uL (130-400); RBC Distribution Width 11.7 % (11.5-14.5); Red Blood Cell (RBC) Count 4.28 mill/uL (4.70-6.10); White Blood Cell (WBC) Count 7.8 thou/uL (4.8-10.8)
[2018-06-08] MEDS ORDERED: Insulin Regular 300 UNITS/3 ML VIAL ONE (19:33)
[2018-06-08 19:55] LABS: ALT (SGPT) 18 U/L (8-55); AST (SGOT) 17 U/L (5-34); Albumin 4.5 g/dL (3.4-4.8); Alkaline Phosphatase 65 U/L (40-150); Anion Gap 18 mmol/L (10-20); BUN (Urea Nitrogen) 36 mg/dL (8.4-25.7); Bilirubin, Total 0.3 mg/dL (0.2-1.2); Calc. Creatinine Clearance 0 mL/min (70-130); Calcium 10.3 mg/dL (7.8-10.44); Carbon Dioxide 24 mmol/L (23-31); Chloride 89 mmol/L (98-107); Estimated GFR-MDRD 22; Globulin 3.9 g/dL (2.4-3.5); Potassium 4.4 mmol/L (3.5-5.1); Protein, Total 8.4 g/dL (5.8-8.1); Sodium 127 mmol/L (136-145)
[2018-06-08 19:55] LABS: Phosphorus 3.2 mg/dL (2.3-4.7)
[2018-06-08 19:58] LABS: Glucose 734 mg/dL (80-115)
[2018-06-08 20:18] LABS: CKMB 1.1 ng/mL (0-6.6)
[2018-06-08 20:24] LABS: Bilirubin Negative (Negative); Blood, Urine Negative (Negative); Clarity CLEAR (Clear); Glucose, Urine (Dipstick) >=1000 mg/dL (Negative); Leukocyte Negative (Negative); Nitrite Negative (Negative); Protein, Urine (Dipstick) Negative (Neg-Trace); Specific Gravity, Urine 1.015 (1.002-1.036); Urobilinogen 0.2 mg/dL (0.2-1.0)
[2018-06-08 20:26] LABS: Base Excess-Venous 5.3 mmol/L (0 (+/- 2.5)); Bicarbonate (HCO3v) 29.8 mmol/L (22.0-29.0); CO2 Tension (PvCO2) 42.5 mmHg (41.0-51.0); Calcium, Ionized 1.18 mmol/L (1.12-1.32); Hemoglobin - Calc 12.1 g/dL (12.0-18.0); O2 Tension (PvO2) 35.8 mmHg (35.0-45.0); Potassium 4.6 mmol/L (3.4-4.7); T. Carbon Dioxide 31.1 mmol/L (1.0-85.0); pH (Venous) 7.454 (7.35-7.45); vO2 Saturation-calc 71.4 % (94-98)
[2018-06-08 22:58] LABS: Troponin I 0.099 ng/mL (< 0.028)
[2018-06-09] MEDS ORDERED: Acetaminophen/Codeine 30-300mg Tablet PO PRN (01:07)
[2018-06-09] MEDS ORDERED: Nitroglycerin 0.4 MG TAB (25 Tab Bottle) SL PRN (01:07)
[2018-06-09] MEDS ORDERED: Bisacodyl 5 MG TAB PO PRN (01:10)
[2018-06-09] MEDS ORDERED: HumaLOG 300 UNITS/3 ML VIAL SC PRN ×2 (01:10)
[2018-06-09] MEDS ORDERED: Ondansetron ODT 4 MG TAB PO PRN (01:10)
[2018-06-09] MEDS ORDERED: Ondansetron PF 4 MG/2 ML Vial IVP PRN (01:10)
[2018-06-09] MEDS ORDERED: Dextrose 5% in Water 1,000 ML IV PRN (01:10)
[2018-06-09] MEDS ORDERED: Guaifenesin DM 100-10/5 ML UDCUP PO PRN (01:10)
[2018-06-09] MEDS ORDERED: Senokot S 8.6-50 MG TAB PO PRN (01:10)
[2018-06-09] MEDS ORDERED: Dextrose 50% Abboject 50 ML SYRINGE SLOW IVP PRN (01:10)
[2018-06-09] MEDS ORDERED: Zolpidem Tartrate 5 MG TAB PO PRN (01:10)
[2018-06-09] MEDS: Sodium Chloride 0.9% 1,000 ML IV SCH ×2 (01:38→11:30)
[2018-06-09 02:10] LABS: Troponin I 0.101 ng/mL (< 0.028)
[2018-06-09 04:05] LABS: Digoxin 0.41 ng/mL (0.8-2.0)
[2018-06-09 04:47] LABS: #Basophils 0.1 thou/uL (0.0-0.2); #Eosinphils 0.5 thou/uL (0.0-0.7); #Lymphocytes 1.3 thou/uL (1.20-3.40); #Monocytes 0.7 thou/uL (0.11-0.59); %Basophils 1.1 % (0.0-1.0); %Eosinophils 6.4 % (0.0-10.0); %Lymphocytes 17.5 % (21.0-51.0); %Monocytes 8.9 % (0.0-10.0); %Neutrophils 66.1 % (42.0-75.0); Hemoglobin 10.9 g/dL (14.0-18.0); Mean Corpuscular HGB CONC 33.1 g/dL (32.0-36.0); Mean Corpuscular Hemoglobin 29.4 pg (27.0-31.0); Mean Corpuscular Volume 88.7 fL (78.0-98.0); Mean Platelet Volume 8.2 fL (7.4-10.4); Platelet Count 281 thou/uL (130-400); RBC Distribution Width 11.7 % (11.5-14.5); Red Blood Cell (RBC) Count 3.69 mill/uL (4.70-6.10); White Blood Cell (WBC) Count 7.5 thou/uL (4.8-10.8)
[2018-06-09 05:06] LABS: Albumin 3.4 g/dL (3.4-4.8); Anion Gap 13 mmol/L (10-20); BUN (Urea Nitrogen) 30 mg/dL (8.4-25.7); BUN/Creatinine Ratio 15.71; Calc. Creatinine Clearance 0 mL/min (70-130); Calcium 9.1 mg/dL (7.8-10.44); Carbon Dioxide 23 mmol/L (23-31); Chloride 103 mmol/L (98-107); Estimated GFR-MDRD 36; Glucose 243 mg/dL (80-115); Phosphorus 3.1 mg/dL (2.3-4.7); Potassium 3.4 mmol/L (3.5-5.1); Sodium 136 mmol/L (136-145)
[2018-06-09] MEDS ORDERED: Potassium Chloride 20 MEQ TAB PO SCH (08:00)
[2018-06-09] MEDS ORDERED: Non-Formulary Item 1 EACH (Pitavastatin Calcium 2 MG) PO SCH (09:00)
[2018-06-09] MEDS ORDERED: Fish Oil 1,000 MG CAP PO SCH (09:00)
[2018-06-09] MEDS ORDERED: Digoxin 0.125 MG TAB PO SCH (09:00)
[2018-06-09] MEDS ORDERED: Heparin 5,000 UNITS/ML VIAL SC SCH (09:00)
[2018-06-09] MEDS ORDERED: Ezetimibe 10 MG TAB PO SCH (09:00)
--- NOTE | 2018-06-09 09:42 | HP ---
CHIEF COMPLAINT: Elevated blood glucose. HISTORY OF PRESENT ILLNESS: This is a 62-year-old male with past medical history of TIA in 08/2013, CKD stage 3, coronary artery disease, CHF, hypercholesterolemia, and diabetes mellitus type 2, presenting with elevated blood sugars. He has been having elevated blood sugars in the past couple of days. The patient actually visited his primary care physician. The patient actually was seen at the OR, and at the OR, labs were drawn, which showed that the patient's blood sugars were elevated. Upon reviewing the patient's chart, it was seen that the patient's glucose was 661, and also the patient's creatinine at that time was 2.28 with the triglycerides of 1791. Due to elevated blood glucose, the patient was prompted to come to our facility for further evaluation. The patient stated that he was recently started on Toujeo by his primary care physician, but his insurance stated that they are not going to pay for the Toujeo, because he has been taking over 100 of Lantus before they can approve him to take Toujeo. So at this time, the patient states that he got the Lantus in his home, but he has not used that yet, because he has one pen left of the Toujeo, and he has been using that Toujeo at home. Upon further investigation, the patient stated that he did hemoglobin A1c in April and it showed that his A1c is 12.1. At this time, the patient denies any fever, chills, nausea, vomiting, chest pain, palpitations, abdominal pain, dysuria, hematuria, or melena. However, the patient reports some generalized weakness and tiredness. The patient also endorses some tingling at the tip of his tongue. REVIEW OF SYSTEMS: Positive for tingling in the tip of the tongue, generalized weakness, elevated blood sugars. Otherwise as documented in the HPI, all other systems are reviewed and are negative. PAST MEDICAL HISTORY: Transient ischemic attacks, chronic kidney disease stage 3, coronary artery disease, CHF, RI x2 in the past, hyperlipidemia, diabetes mellitus type 2. FAMILY HISTORY: Reviewed and noncontributory to this visit at this time. PAST SURGICAL HISTORY: CABG stents x4 in 2008, ICD placement, cholecystectomy, and the patient had double bypass in 2018. PSYCHIATRIC HISTORY: No previous psych history. SOCIAL HISTORY: The patient denies alcohol use. The patient denies any illicit drug use. The patient is a former smoker. The patient smokes cigarettes, quit less than 10 years ago. ALLERGIES: THE PATIENT DOES NOT HAVE ANY ALLERGIES. MEDICATION LIST: The patient takes, 1. Amiodarone 400 mg b.i.d. 2. Aspirin 81 mg. 3. Carvedilol 12.5 mg. 4. Digoxin dose unknown. 5. Ezetimibe 10 mg. 6. Fenofibrate. 7. Ferrous sulfate. 8. Lasix. 9. Niacin. 10. Nitroglycerin. 11. [place]-3. 12. Pantoprazole. 13. Pravastatin. 14. Potassium chloride. 15. Januvia. 16. Spironolactone. 17. Coenzyme Q. PHYSICAL EXAMINATION: VITAL SIGNS: The patient's blood pressure is 139/73, pulse of 88, respiratory rate of 18, temperature of 98.0, O2 saturation of 99. GENERAL: The patient is alert and oriented x3, not in acute distress. The patient is lying comfortably in bed. The patient is able to speak to me in full sentences. HEENT: Normocephalic, atraumatic. Pupils are equally round and reactive to light. Extraocular movements are intact. No scleral icterus. No conjunctival pallor. Mucous membranes are moist. NECK: Trachea is midline. No JVD. Full range of motion. LUNGS: Clear to auscultation bilaterally. No wheezing, no rales, no rhonchi appreciated. CARDIAC: Positive S1 and S2. Regular rate and rhythm. No murmurs, no gallops, no rubs appreciated. The patient has a scar noted at the midsternal region. ABDOMEN: Soft, nontender, and nondistended. Positive bowel sounds in all quadrants. EXTREMITIES: The patient has 5/5 upper extremity strength and 5/5 lower extremity strength. Good dorsalis pedis pulses bilaterally, and the patient does have good radial pulses bilaterally. NEURO: Cranial nerves 2 through 12 are grossly intact. No neurologic deficits noted. SKIN: Warm, dry, and intact. DIAGNOSTIC DATA: EKG shows sinus rhythm with the rate of 81. PBGs; the patient's pH is 7.4, pCO2 is 42.5, O2 is 35.8. Serum osmolality is 317. Troponin is 0.110. Electrolytes; sodium is 127, chloride is 89, bicarb is 24, anion gap is 18, BUN is 36, creatinine is 2.9. ASSESSMENT AND PLAN: This is a 62-year-old male with multiple cardiac histories, being admitted for, 1. Hyperglycemia due to poor medication management. At this point, the patient stated that his medications that he was taking the Toujeo has not been paid for by insurance, and the patient recently was started Lantus, but has not started using the Lantus yet. It seemed like the patient's diabetes mellitus has not been adequately controlled by his provider. At this time, we will start the patient on insulin sliding scale, and based on how much insulin the patient is receiving, we will start the patient on a t.i.d. insulin, and then, the patient can now take Lantus during the night, so that the patient can adequately be able to control his blood sugars. The patient's A1c is currently 12.1, which shows that there is a huge noncompliance on the patient's part as well. 2. Hypertriglyceridemia, seen on the patient's labs from the OR. At this point, the patient is on omega-3 and fenofibrate. We will continue these medications. 3. Coronary artery disease, status post coronary artery bypass grafting. We will continue the patient on home medications. 4. Diabetes mellitus type 2, uncontrolled. We will continue the patient on current treatment. 5. Chronic back pain. We will give the patient p.r.n. pain medications for his back pain. 6. Congestive heart failure. At this point, the patient is not in any acute exacerbation. We will continue the patient on his home medication. 7. The patient has acute on chronic kidney disease, likely prerenal in etiology. At this point, we will give the patient fluids, hydration, and we will monitor the patient's creatinine. If the patient's creatinine continues to trend up, then we will consult Nephrology. 8. Hypertonic hyponatremia likely due to hyperglycemia. At this point, we will continue to treat the patient's hyperglycemia and this will fix the patient's hyponatremia. We will continue to monitor the patient closely. 9. Deep vein thrombosis/gastrointestinal prophylaxis. Job ID: [id number]
[2018-06-09] MEDS ORDERED: Digoxin 0.125 MG TAB ONE (09:56)
[2018-06-09] MEDS ORDERED: Potassium Chloride 20 MEQ TAB ONE (09:56)
[2018-06-09] MEDS: Carvedilol 6.25 MG TAB PO SCH ×2 (09:58→15:06)
[2018-06-09] MEDS: Amiodarone 200 MG TAB PO SCH ×2 (09:58→15:13)
[2018-06-09] MEDS ORDERED: HumaLOG 300 UNITS/3 ML VIAL ONE (10:18)
[2018-06-09] MEDS ORDERED: Acetaminophen/Codeine 30-300mg Tablet ONE (10:30)
[2018-06-09] MEDS ORDERED: Heparin 1,000 UNITS/ML VIAL ONE ×2 (11:35→11:40)
[2018-06-09] MEDS ORDERED: Insulin Glargine 20 UNITS in Pre-Filled Syringe 1 EACH SC SCH (14:45)
[2018-06-09 15:13] VITALS: BP 115/53
[2018-06-09] MEDS ORDERED: Fenofibrate Nanocrystallized 145 MG TAB PO SCH (21:00)
[2018-06-09] MEDS ORDERED: Ferrous Sulfate 325 MG TAB PO SCH (21:00)
[2018-06-09] MEDS ORDERED: FERROUS SULFATE 45 MG PO SCH (21:00)
[2018-06-09] MEDS ORDERED: Atorvastatin Calcium 10 MG TAB PO SCH (21:00)
[2018-06-09] MEDS ORDERED: Non-Formulary Item 1 EACH (Fenofibric Acid (Choline) [Fenofibric Acid] 135 MG) PO SCH (21:00)
--- NOTE | 2018-06-10 03:29 | DIS ---
DATE OF ADMISSION: 06/08/2018 DATE OF DISCHARGE: 06/09/2018 PRIMARY CARE PROVIDER: Dr. Linda Christine. DISCHARGE DIAGNOSES: 1. Uncontrolled hyperglycemia. 2. Acute on chronic stage 3 kidney disease. CONDITION OF PATIENT ON THE DAY OF DISCHARGE: Stable. I assessed Mr. Rawls on the day of discharge. He reports feeling better. He denies any chest pain or shortness of breath. PHYSICAL EXAMINATION: VITAL SIGNS: Stable. HEART: S1 and S2 are heard, regular. LUNGS: Clear to auscultation bilaterally. DISCHARGE MEDICATIONS: I have advised him to start Lantus insulin 20 units daily and have his blood sugars checked three times a day and shows the readings to his primary care provider for further adjustment of insulin dose. Otherwise, no change was made to his preadmission home medications as directed on history and physical note dated June 09, 2018, by Dr. Valencia. HOSPITAL COURSE: Mr. Rawls is a pleasant 62-year-old gentleman who was admitted to [facility] for uncontrolled hyperglycemia on June 08, 2018. Please refer to Dr. Valencia's history and physical note dated June 09, 2018, for further details. Mr. Rawls received short-acting insulin as well as Lantus insulin during this hospitalization. His blood sugars improved, but they were still high, in the 300 plus range. He will need further titration of insulin. I have advised him to stop Toujeo insulin at this time and start Lantus insulin and use it at 20 units daily initially. He also had acute on chronic stage 3 renal insufficiency at the time of admission, with a creatinine of 2.90. Creatinine improved to 1.91 on the day of discharge. Mr. Rawls improved symptomatically and is being discharged home in a stable condition. Many thanks for allowing me to participate in your patient's care. Please feel free to contact me with any questions or concerns. DISCHARGE DESTINATION: Home. Job ID: [id number]
[2018-06-10] MEDS ORDERED: Insulin Glargine 20 UNITS in Pre-Filled Syringe 1 EACH SC SCH (09:00)
== END 2018-06-09 18:06 | disposition home or self-care (01) ==
LOC: ERS 18:47 → ERHOLD 22:26
PROVIDERS: ADMIT Internal Medicine; ATTEND Internal Medicine
DX: E11.65 Type 2 diabetes mellitus with hyperglycemia (principal); E78.00 Pure hypercholesterolemia, unspecified; I25.10 Atherosclerotic heart disease of native coronary artery without angina pectoris; E11.22 Type 2 diabetes mellitus with diabetic chronic kidney disease; N18.3 Chronic kidney disease, stage 3 (moderate); I50.9 Heart failure, unspecified; N17.9 Acute kidney failure, unspecified; I25.2 Old myocardial infarction; G89.29 Other chronic pain; M54.9 Dorsalgia, unspecified; E87.1 Hypo-osmolality and hyponatremia; Z86.73 Personal history of transient ischemic attack (TIA), and cerebral infarction without residual deficits; Z87.891 Personal history of nicotine dependence; Z79.82 Long term (current) use of aspirin; Z79.84 Long term (current) use of oral hypoglycemic drugs; Z79.899 Other long term (current) drug therapy; Z95.1 Presence of aortocoronary bypass graft; Z95.5 Presence of coronary angioplasty implant and graft; Z95.810 Presence of automatic (implantable) cardiac defibrillator
CPT/HCPCS: 80053; 80069; 80162; 81003; 82010; 82330; 82435; 82553; 82803; 82962 ×2; 83735; 83930; 84100; 84132; 84295; 84484 ×3; 85014; 85025 ×2; 93005; 96360; 96361; 99285; G0378; 36415; 36416; J1644; J1815

== ENCOUNTER 2019-08-04 12:41 | Outpatient (CLI) | payer MEDICARE, OTHER ==
--- NOTE | 2019-08-04 13:03 | RAD ---
RADIOGRAPH CHEST 2 VIEWS: DATE: 08/04/2019 HISTORY: 64-year-old male with atrial tachycardia FINDINGS: There is no airspace density, pulmonary edema, pleural effusion, pneumothorax, or cardiomegaly. [place] otomy wires. Dual lead left subclavian AICD. IMPRESSION: 1. No acute cardiopulmonary findings. 2. Automatic implantable cardioverter-defibrillator. 3. Previous open-heart surgery.
== END 2019-08-04 12:42 | disposition home or self-care (01) ==
LOC: RAD 12:41
PROVIDERS: ATTEND Nurse Practitioner Family
DX: I47.1 Supraventricular tachycardia (principal); Z95.810 Presence of automatic (implantable) cardiac defibrillator
CPT/HCPCS: 71046

== ENCOUNTER 2019-08-29 10:50 | Observation (INO) | payer MEDICARE, OTHER ==
[2019-08-29] MEDS ORDERED: Sodium Chloride 0.9% 1,000 ML IV SCH (11:45)
[2019-08-29] MEDS ORDERED: HOLD HYPOGLYCEMIC MEDS AM OF CATH FS SCH (11:45)
[2019-08-29] MEDS ORDERED: Acetaminophen/Codeine 30-300mg Tablet PO PRN (12:21)
[2019-08-29 12:23] VITALS: BMI 26.7
[2019-08-29] MEDS ORDERED: Nitroglycerin 0.4 MG TAB (25 Tab Bottle) SL PRN (12:29)
[2019-08-29] MEDS ORDERED: HumaLOG 300 UNITS/3 ML VIAL SC SCH ×2 (12:30→17:15)
[2019-08-29 13:17] LABS: #Basophils 0.1 thou/uL (0.0-0.2); #Eosinphils 1.2 thou/uL (0.0-0.7); #Neutrophils 6.5 thou/uL (1.40-6.50); %Basophils 0.9 % (0.0-1.0); %Eosinophils 11.3 % (0.0-10.0); %Lymphocytes 18.2 % (21.0-51.0); %Monocytes 9.3 % (0.0-10.0); %Neutrophils 60.2 % (42.0-75.0); Hemoglobin 14.1 g/dL (14.0-18.0); Mean Corpuscular HGB CONC 34.4 g/dL (32.0-36.0); Mean Corpuscular Volume 87.1 fL (78.0-98.0); Mean Platelet Volume 8.3 fL (7.4-10.4); Platelet Count 253 thou/uL (130-400); RBC Distribution Width 12.3 % (11.5-14.5); Red Blood Cell (RBC) Count 4.69 mill/uL (4.70-6.10); White Blood Cell (WBC) Count 10.7 thou/uL (4.8-10.8)
[2019-08-29] MEDS: Sodium Chloride 0.9% 1,000 ML IV SCH (13:17)
--- NOTE | 2019-08-29 13:23 | RAD ---
PORTABLE CHEST: HISTORY: Preop catheterization procedure. COMPARISON: 08/04/2019. FINDINGS: Lung mina are clear. No infiltrate or vascular congestion. Cardiomediastinum unremarkable. Posto p sternotomy changes again noted. AICD leads are unchanged. IMPRESSION: No acute process. POS: [facility]
[2019-08-29 13:47] LABS: ALT (SGPT) 33 U/L (8-55); AST (SGOT) 22 U/L (5-34); Albumin 4.6 g/dL (3.4-4.8); Alkaline Phosphatase 50 U/L (40-110); Anion Gap 17 mmol/L (10-20); BUN (Urea Nitrogen) 33 mg/dL (8.4-25.7); Bilirubin, Total 0.5 mg/dL (0.2-1.2); Calc. Creatinine Clearance 41 mL/min (70-130); Calcium 10.6 mg/dL (7.8-10.44); Carbon Dioxide 26 mmol/L (23-31); Cardiac Risk 5.9 (Less than 4.5); Chloride 98 mmol/L (98-107); Cholesterol 164 mg/dl (< 200 Desired); Estimated GFR-MDRD 29; Globulin 3.7 g/dL (2.4-3.5); Glucose 232 mg/dL (80-115); HDL Cholesterol 28 mg/dL (>60 Neg Risk); Protein, Total 8.3 g/dL (5.8-8.1); Sodium 137 mmol/L (136-145); Triglycerides 493 mg/dL (Less than 150)
[2019-08-29] MEDS ORDERED: Dextrose 5% in Water 1,000 ML IV PRN (17:25)
[2019-08-29] MEDS ORDERED: Dextrose 50% Abboject 50 ML SYRINGE IVP PRN (17:25)
[2019-08-29] MEDS ORDERED: HumaLOG 300 UNITS/3 ML VIAL SC PRN (17:25)
[2019-08-29] MEDS: Potassium Chloride 10 MEQ TAB PO SCH (17:59)
[2019-08-29] MEDS: HumaLOG 300 UNITS/3 ML VIAL SC PRN (18:00)
[2019-08-29] MEDS ORDERED: Atorvastatin Calcium 10 MG TAB PO SCH (21:00)
[2019-08-29] MEDS ORDERED: Insulin Glargine 55 UNITS in Pre-Filled Syringe 1 EACH SC SCH (21:00)
[2019-08-29] MEDS ORDERED: Gabapentin 100 MG CAP PO SCH (21:00)
[2019-08-29] MEDS ORDERED: DC ENOXAPARIN NIGHT BEFORE CATH FS SCH (22:00)
[2019-08-30 05:47] LABS: Anion Gap 13 mmol/L (10-20); BUN (Urea Nitrogen) 30 mg/dL (8.4-25.7); Calc. Creatinine Clearance 44 mL/min (70-130); Calcium 9.7 mg/dL (7.8-10.44); Carbon Dioxide 30 mmol/L (23-31); Chloride 101 mmol/L (98-107); Estimated GFR-MDRD 31; Glucose 149 mg/dL (80-115); Potassium 3.6 mmol/L (3.5-5.1); Sodium 140 mmol/L (136-145)
[2019-08-30] MEDS ORDERED: Communication Order-Pharmacy FS SCH (06:00)
[2019-08-30] MEDS ORDERED: Heparin 10,000 UNITS/1 ML VIAL ONE ×2 (06:40→07:34)
[2019-08-30] MEDS ORDERED: Midazolam HCl 2 mg/2 ml Vial ONE (07:14)
[2019-08-30] MEDS ORDERED: Fentanyl 100 MCG/2 ML VIAL ONE (07:14)
[2019-08-30] MEDS ORDERED: Spironolactone 25 MG TAB PO SCH (08:00)
[2019-08-30] MEDS ORDERED: Protamine Sulfate 50 MG/5 ML VIAL ONE (08:03)
[2019-08-30] MEDS ORDERED: Ferrous Sulfate 325 MG TAB PO SCH (09:00)
[2019-08-30] MEDS ORDERED: Aspirin Chewable 81 MG TAB PO SCH (09:00)
[2019-08-30] MEDS ORDERED: Fenofibrate Nanocrystallized 145 MG TAB PO SCH (09:00)
[2019-08-30] MEDS ORDERED: Ubidecarenone 50 MG CAP PO SCH (09:00)
[2019-08-30] MEDS ORDERED: Alogliptin 6.25 MG TAB PO SCH (09:00)
[2019-08-30] MEDS ORDERED: Nitroglycerin 0.4 MG TAB (25 Tab Bottle) SL PRN (09:12)
[2019-08-30] MEDS ORDERED: Sodium Chloride 0.9% 200 ML IV PRN (09:12)
[2019-08-30] MEDS ORDERED: Acetaminophen/Codeine 30-300mg Tablet PO PRN ×2 (09:12)
[2019-08-30] MEDS ORDERED: Sodium Chloride 0.9% 1,000 ML IV SCH ×2 (09:15→14:00)
[2019-08-30] MEDS: Potassium Chloride 10 MEQ TAB PO SCH ×2 (10:00→17:30)
[2019-08-30] MEDS: Sodium Chloride 0.9% 1,000 ML IV SCH (10:02)
[2019-08-30] MEDS ORDERED: Iopamidol 370 76% 100 ML VIAL ONE (10:11)
[2019-08-30] MEDS: HumaLOG 300 UNITS/3 ML VIAL SC PRN ×2 (11:19→17:30)
[2019-08-30 15:38] VITALS: BP 125/59; TEMP 98
--- NOTE | 2019-08-31 10:49 | DIS ---
DATE OF ADMISSION: 08/30/2019 DATE OF DISCHARGE: 08/30/2019 DISCHARGE DIAGNOSES: 1. Unstable angina with finding of occluded right posterior descending bypass graft (off of the innominate) and atretic MOSQUERA to the LAD. 2. In-stent restenosis of the proximal LAD and mid RCA stents, which were placed in 2007. 3. Status post dual-chamber ICD placement. 4. History of ventricular tachycardia. 5. Ischemic cardiomyopathy with ejection fraction of 20% to 25%. 6. History of atrial tachycardia. 7. Hypercholesterolemia and hypertriglyceridemia. 8. Hypertension. 9. 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 10. Former smoker. 11. Diabetes. 12. Chronic kidney disease. DISCHARGE MEDICATIONS: Will remain the same. DISCHARGE DISPOSITION: The patient will be transferred to [facility] in [place] for intervention. I feel that with his severe left ventricular dysfunction that it would be best to have him at a center where LVAD is available. HOSPITAL COURSE: Mr. Rawls had been having increasing chest discomfort. He was admitted and hydrated overnight and underwent cardiac catheterization, which demonstrated the 90% proximal LAD in-stent restenosis and 90% mid RCA in-stent restenosis as he had prior to bypass surgery. The MOSQUERA to the LAD was atretic. The right posterior descending graft was never seen to fill retrograde from the right coronary artery. Due to his renal insufficiency, no attempt was made to try to document the proximal anastomosis off the innominate. His films were reviewed by Dr. Marlow, who felt that redo surgery would not be his best option. He will be transferred to [facility] in [place] under the care of Dr. Vogel. Job ID: [id number] [facility]
== END 2019-08-30 20:40 | disposition short-term general hospital (02) ==
LOC: SDC 10:50 → 2SW 11:01 → SDC 08-30 12:41 → 2SW 08-30 12:41
PROVIDERS: ADMIT Internal Medicine Cardiovascular Disease; ATTEND Internal Medicine Cardiovascular Disease
DX: I25.700 Atherosclerosis of coronary artery bypass graft(s), unspecified, with unstable angina pectoris (principal); I12.9 Hypertensive chronic kidney disease with stage 1 through stage 4 chronic kidney disease, or unspecified chronic kidney disease; E11.22 Type 2 diabetes mellitus with diabetic chronic kidney disease; N18.3 Chronic kidney disease, stage 3 (moderate); E78.00 Pure hypercholesterolemia, unspecified; E78.1 Pure hyperglyceridemia; Z79.899 Other long term (current) drug therapy; Z87.891 Personal history of nicotine dependence; Z88.0 Allergy status to penicillin; Z79.4 Long term (current) use of insulin; Z95.1 Presence of aortocoronary bypass graft; Z95.5 Presence of coronary angioplasty implant and graft; Z95.810 Presence of automatic (implantable) cardiac defibrillator
CPT/HCPCS: 71045; 80048; 80053; 80061; 82962 ×2; 85025; 85347; 93005; 93455; C1769; G0378; 36415; 36416; 93010; 99152; 99153; J1644; J1815; J2250; J2720; J3010; Q9967